=== PATIENT | male | born 1935 | race Caucasian/White ===

== ENCOUNTER 2016-02-02 16:29 | Inpatient (IN) | payer OTHER ==
[~2016-02-02] VITALS: Ht 180.3 cm; Wt 86.1 kg
[~2016-02-02 16:29] MED LIST: ASPEC81 PO; ATOR-24 PO; CARB25TA12 PO; CARV6.252 PO; DVN/160 PO; FURO-85 PO; ISOS60TA25 PO; METO100T14 PO; NTRGSL/4 UT; PANT40TA PO; POTA20TA16 PO; XRL15 PO
[2016-02-02] MEDS ORDERED: ONDANSETRON INJ 2 MG/ML 2 ML VIAL IV STA (16:41)
[2016-02-02] MEDS ORDERED: MoRPHine SULFATE 4 MG/ML 1 ML CARP\\VIAL IV STA (16:41)
[2016-02-02] MEDS ORDERED: OPTIRAY 320 IV PRN (17:00)
[2016-02-02 17:16] LABS: BASO % 0.1 %; BASO ABS # 0.01 K/uL (0-0.2); COMPLETE YES; HEMATOCRIT 43.2 % (42-52); IG% 0.3 %; LYMPH % 8.4 %; LYMPH ABS # 1.13 K/uL (1.2-3.4); MEAN CELL VOLUME 91.1 fL (80-100); MEAN CORPUSCULAR HEMOGLOBIN 32.3 pg (25-34); MEAN CORPUSCULAR HGB CONC 35.4 g/dl (32-36); MEAN PLATELET VOLUME 11.3 fL (7.4-10.4); MONO % 7.4 %; NEUT % 83.8 %; PLATELET COUNT 158 K/uL (130-400); RED BLOOD COUNT 4.74 M/uL (4.7-6.1); WHITE BLOOD COUNT 13.52 K/uL (4.8-10.8)
[2016-02-02] MEDS ORDERED: DIGO30TA PO (17:16)
--- NOTE | 2016-02-02 17:31 | DIAGNOSTIC IMAGING REPORT ---
CHEST ONE VIEW PORTABLE CLINICAL HISTORY: Chest pain. Nausea COMPARISON STUDY: Chest radiograph November 21, 2014 FINDINGS: A left subclavian pacer/AICD is in place. Cardiomediastinal silhouette is stable. There is no pneumothorax or pleural effusion. There is no evidence of pulmonary edema. No consolidation is identified. IMPRESSION: No acute cardiopulmonary findings. Electronically signed by: Mykel Zarate M.D. 02/02/2016 5:30 PM
[2016-02-02 17:42] LABS: BUN/CREATININE RATIO 13.6 (10-20); CALCIUM 9.2 mg/dl (8.5-10.1); CREATININE 1.1 mg/dl (0.60-1.40)
--- NOTE | 2016-02-02 17:56 | EMERGENCY ROOM VISIT NOTE ---
History Report prepared by Darek: Ming Prakash Under the Supervision of: Dr. Rolando Perdomo M.D. First contact with patient: 16:34 Stated Complaint: AB PAIN, NAUSEA History of Present Illness The patient is an 81 year old male who presents to the Emergency Room with complaints of persistent lower abdominal pain since last night. The pain is dull in nature. The pain is not worsened after eating. The patient also complains of chest tightness that started last night but resolved today. He also experiences exertional shortness of breath. The patient denies any fevers, vomiting, blood in the stool, or urinary symptoms. He had diarrhea yesterday after taking milk of magnesia. The patient has had chest tightness in the past. He has had two past heart attacks. He currently denies having chest discomfort. The patient also has a history of CHF. The patient follows up with Dr. Gusman as his primary care physician. He still has his appendix. Source of History: patient Onset: last night Position: abdomen (lower) Quality: dull Timing: other (persistent) Associated Symptoms: + SOB, + chest pain, + diarrhea, No fevers, No hematochezia, No urinary symptoms, No vomiting Review of Systems See HPI for pertinent positives & negatives. A total of 10 systems reviewed and were otherwise negative. Past Medical & Surgical Medical Problems: (1) Acute respiratory distress (2) Congestive heart failure Family History No pertinent family history Social History Smoking Status: Former Smoker Drug Use: none Marital Status: Housing Status: lives with family Current/Historical Medications Scheduled Aspirin Enteric Coated (Ecotrin Or Generic *), 1 TAB PO DAILY Carbidopa/Levodopa (Sinemet 25MG/100MG), 1 TAB PO QID Carvedilol (Coreg), 1 TAB PO BID Digoxin (Digitek), 0.125 MG PO DAILY Furosemide (Lasix), 40 MG PO DAILY Metoprolol Tartrate (Lopressor) (Lopressor), 100 MG PO QAM Pantoprazole (Protonix), 40 MG PO BID Potassium Ext Rel (Klor-Con), 20 MEQ PO DAILY Rivaroxaban (Xarelto), 1 TAB PO DAILY Valsartan (Diovan), 160 MG PO DAILY Scheduled PRN Nitroglycerin (Nitrostat), 0.4 MG UT PRN PRN for Chest Pain Allergies Coded Allergies: No Known Allergies (Unverified , 02/02/16) Physical Exam Vital Signs Date Time Temp Pulse Resp B/P Pulse Ox O2 Delivery O2 Flow Rate FiO2 02/02/16 17:29 90 31 110/70 93 02/02/16 17:19 110 28 92 02/02/16 17:16 128/67 02/02/16 17:14 101 22 93 02/02/16 17:09 106 30 94 02/02/16 17:04 107 21 93 02/02/16 16:59 113 30 93 02/02/16 16:54 113 21 93 02/02/16 16:49 113 24 96 02/02/16 16:46 95 Room Air 02/02/16 16:44 121 21 95 02/02/16 16:41 127 02/02/16 16:41 37.0 123 23 135/61 95 Room Air 02/02/16 16:39 166 26 94 02/02/16 16:33 135/61 02/02/16 16:29 95 Room Air 02/02/16 16:29 37.0 123 23 135/61 95 Room Air Physical Exam Constitutional: Vital signs reviewed. Eyes: Pupils are equal round reactive to light. Conjunctiva are noninjected. ENT: Pharynx is clear without erythema or exudate. Mucous membranes are moist. Neck supple without meningeal signs. Respiratory: Clear to auscultation bilaterally. Breath sounds are equal bilaterally. Cardiovascular: Tachycardic. Heart rate 110. GI: Soft, nondistended with tenderness in the right lower quadrant. No guarding. Bowel sounds are present. Musculoskeletal: No peripheral edema. No lower extremity tenderness. No CVA tenderness. Integumentary: No cyanosis. Neurological: The patient is awake and alert. No focal deficits. Psychiatric: Normal affect. Medical Decision & Procedures ER Provider Diagnostic Interpretation: X-ray results as stated below per interpretation by me and the radiologist: Other radiology results as stated below per my review and the radiologist's interpretation: CHEST ONE VIEW PORTABLE CLINICAL HISTORY: Chest pain. Nausea COMPARISON STUDY: Chest radiograph November 21, 2014 FINDINGS: A left subclavian pacer/AICD is in place. Cardiomediastinal silhouette is stable. There is no pneumothorax or pleural effusion. There is no evidence of pulmonary edema. No consolidation is identified. IMPRESSION: No acute cardiopulmonary findings. Electronically signed by: Mykel Zarate M.D. 02/02/2016 5:30 PM Laboratory Results 02/02/16 17:04 Red Blood Count 4.74, Mean Corpuscular Volume 91.1, Mean Corpuscular Hemoglobin 32.3, Mean Corpuscular Hemoglobin Concent 35.4, Mean Platelet Volume 11.3, Neutrophils (%) (Auto) 83.8, Lymphocytes (%) (Auto) 8.4, Monocytes (%) (Auto) 7.4, Eosinophils (%) (Auto) 0.0, Basophils (%) (Auto) 0.1, Neutrophils # (Auto) 11.34, Lymphocytes # (Auto) 1.13, Monocytes # (Auto) 1.00, Eosinophils # (Auto) 0.00, Basophils # (Auto) 0.01 02/02/16 17:04 Test 02/02/16 17:04 02/02/16 17:14 02/02/16 17:47 White Blood Count 13.52 K/uL (4.8-10.8) Red Blood Count 4.74 M/uL (4.7-6.1) Hemoglobin 15.3 g/dL (14.0-18.0) Hematocrit 43.2 % (42-52) Mean Corpuscular Volume 91.1 fL (80-100) Mean Corpuscular Hemoglobin 32.3 pg (25-34) Mean Corpuscular Hemoglobin Concent 35.4 g/dl (32-36) Platelet Count 158 K/uL (130-400) Mean Platelet Volume 11.3 fL (7.4-10.4) Neutrophils (%) (Auto) 83.8 % Lymphocytes (%) (Auto) 8.4 % Monocytes (%) (Auto) 7.4 % Eosinophils (%) (Auto) 0.0 % Basophils (%) (Auto) 0.1 % Neutrophils # (Auto) 11.34 K/uL (1.4-6.5) Lymphocytes # (Auto) 1.13 K/uL (1.2-3.4) Monocytes # (Auto) 1.00 K/uL (0.11-0.59) Eosinophils # (Auto) 0.00 K/uL (0-0.5) Basophils # (Auto) 0.01 K/uL (0-0.2) RDW Standard Deviation 42.2 fL (36.4-46.3) RDW Coefficient of Variation 12.5 % (11.5-14.5) Immature Granulocyte % (Auto) 0.3 % Immature Granulocyte # (Auto) 0.04 K/uL (0.00-0.02) Anion Gap 10.0 mmol/L (3-11) Est Creatinine Clear Calc Drug Dose 55.1 ml/min Estimated GFR () 72.1 Estimated GFR (Non- 62.2 BUN/Creatinine Ratio 13.6 (10-20) Calcium Level 9.2 mg/dl (8.5-10.1) Total Bilirubin 1.3 mg/dl (0.2-1) Direct Bilirubin 0.3 mg/dl (0-0.2) Aspartate Amino Transf (AST/SGOT) 30 U/L (15-37) Alanine Aminotransferase (ALT/SGPT) 9 U/L (12-78) Alkaline Phosphatase 72 U/L (45-117) Total Protein 7.7 gm/dl (6.4-8.2) Albumin 3.8 gm/dl (3.4-5.0) Lipase 49 U/L (73-393) Bedside Troponin I 0.010 ng/ml (0-0.045) Laboratory results as reviewed by me. Medications Administered Medications (Trade) Dose Ordered Sig/Remedios Route Start Time Stop Time Status Last Admin Dose Admin Morphine Sulfate (MoRPHine SULFATE INJ) 4 mg ONE STAT IV 02/02/16 16:41 02/02/16 16:43 DC 02/02/16 17:21 4 MG Ondansetron HCl (Zofran Inj) 4 mg NOW STAT IV 02/02/16 16:41 02/02/16 16:43 DC 02/02/16 17:20 4 MG ECG Indication: chest pain Rate (beats per minute): 123 Rhythm: other (paced rhythm) Findings: PVC (multiple), no acute ischemic change Comparison ECG Date: 2014 Change: Similar paced rhythm, however there were no PVCs on the previous EKG on 2104. ED Course 1635: The patient was evaluated in room B4b. A complete history and physical exam was performed. 1641: Zofran 4 mg IV, Morphine Sulfate 4 mg IV. 1740: The patient is feeling better. 1800: The patient is being signed out to Dr. Rudolph at change of shift. The CT scan is still pending. Medical Decision This is an 81-year-old male who presents with chest and abdominal pain. Differential diagnosis includes unstable angina, FL, pneumonia, appendicitis, perforation, abscess, UTI. I did perform a limited focused review of portions of the patient's old chart on the electronic medical record. The patient has had no recent pertinent visits to this hospital. I did evaluate the patient as noted above. He is presenting with chest tightness intermittently since yesterday. This is concerning for cardiac disease. He has a prior history of CAD. He also complains of right lower quadrant pain since yesterday and has tenderness in the right lower abdomen. IV access was established. I did treat patient with morphine and Zofran IV. I did order and personally review the patient's 12-lead EKG and chest x-ray as described above. I did order and review the patient's blood work as noted in the electronic medical record. His white blood cell count is elevated. Initial troponin is negative. I did order a CT of the abdomen and pelvis. The CT is currently pending. The patient was signed out to Dr. Payan. Impression Primary Impression: Acute chest pain Additional Impression: RLQ abdominal pain Scribe Attestation The scribe's documentation has been prepared under my direct and personally reviewed by me in its entirety. I confirm that the note above accurately reflects all work, treatment, procedures, and medical decision making performed by me. Departure Information Dispostion Still a Patient Referrals August Gusman M.D. (PCP)
--- NOTE | 2016-02-02 18:06 | EMERGENCY ROOM VISIT NOTE ---
ED Visit Note First contact with patient: 17:[address] Perdomo at roughly 6 PM. Patient reportedly with chest pain and abdominal pain. On examination, patient is with in no acute distress. He states he has a "pressure point "in his right lower quadrant and he has not been taking his diuretics for the last 3 days because they make him urinate. He specifically denies any chest pain whatsoever and his confirms this. I did confirm with Dr. Perdomo that in fact the patient mentioned chest pain earlier. He is generally slow to answer questions that may be a component of dementia or memory loss to his presentation. Abdomen was clearly benign on exam with minimal right lower quadrant tenderness. Chest x-ray reviewed by me did not history signs of congestive heart failure. CT the head later ordered as family reported patient not at baseline mental status. (Normal). CT abdomen and pelvis revealed diverticulitis with small abscess. Cipro Flagyl IV ordered. Case discussed with Dr. Rader for admission. Results discussed with family at 10:45 PM and all questions answered. Patient appears in no acute distress on my exam.
[2016-02-02] MEDS ORDERED: CYM/60 PO (18:21)
[2016-02-02] MEDS ORDERED: ISOS60TA25 PO (18:29)
[2016-02-02] MEDS ORDERED: FERRTAB18 PO (18:29)
[2016-02-02] MEDS ORDERED: CHOL100010 PO (18:29)
[2016-02-02] MEDS ORDERED: CYAN500T PO (18:29)
[2016-02-02] MEDS ORDERED: ATOR-24 PO (18:29)
[2016-02-02 18:56] LABS: INR 1.4 (0.9-1.1); PARTIAL THROMBOPLASTIN RATIO 1.2; PROTHROMBIN TIME (PATIENT) 14.9 SECONDS (9.0-12.0)
--- NOTE | 2016-02-02 20:14 | DIAGNOSTIC IMAGING REPORT ---
ABDOMEN AND PELVIS CT WITH IV AND ORAL CONTRAST CT DOSE: 505.10 mGy.cm HISTORY: Right lower quadrant abdominal pain. TECHNIQUE: Multiaxial CT images of the abdomen and pelvis were performed following the use of intravenous and oral contrast. COMPARISON STUDY: Abdomen and pelvis CT 08/24/2007. FINDINGS: Pacemaker wires are noted. The heart is mildly enlarged. Mild dependent changes seen at the lung bases. Small fat and fluid containing right inguinal hernia. No hepatic or splenic masses. The adrenal glands and pancreas are unremarkable. The gallbladder is mildly distended. No gallbladder wall thickening. Bilateral renal parapelvic cyst. There are few bilateral renal hypodense lesions within largest on the right measuring 9 mm. These are too small to characterize but favor cysts. No retroperitoneal lymphadenopathy. Mild bladder wall thickening with an enlarged prostate gland. This remains unchanged. Focal thickening of the mid sigmoid colon within the anterior abdomen with associated pericolonic fat stranding. This is consistent with acute diverticulitis. There is an adjacent 3.8 x 2.9 cm loculated gas and fluid collection along the posterior margin of the thickened sigmoid colon consistent with an abscess. Multiple additional colonic diverticula. Moderate stool within the colon. No evidence for bowel obstruction. Normal appendix. IMPRESSION: 1. Acute sigmoid diverticulitis with an associated 3.8 x 2.9 cm pericolonic abscess. Recommend follow-up to resolution. 2. Normal appendix. 3. Mildly distended gallbladder. No gallbladder wall thickening. 4. Mild bladder wall thickening, unchanged. 5. Fat and fluid containing right inguinal hernia. Electronically signed by: Abdi Abebe M.D. 02/02/2016 8:13 PM
[2016-02-02 21:47] LABS: URINE APPEARANCE CLEAR (CLEAR); URINE BILIRUBIN NEG (NEG); URINE COLOR YELLOW; URINE NITRITE NEG (NEG); URINE SPECIFIC GRAVITY > 1.045 (1.000-1.030); UROBILINOGEN NEG (NEG); ZZUR CULT IF INDIC CLEAN CATCH NO
[2016-02-02 21:48] LABS: MANUAL MICROSCOPIC REQUIRED? NO; REVIEW REQ? NO
--- NOTE | 2016-02-02 22:08 | DIAGNOSTIC IMAGING REPORT ---
HEAD CT NONCONTRAST CT DOSE: 712.55 mGy.cm HISTORY: Altered mental status. TECHNIQUE: Multiaxial CT images of the head were performed without the use of intravenous contrast. Automated exposure control was utilized for this study. Comparison: Head CT 12/27/2005. Findings: The paranasal sinuses and mastoid air cells are clear. The calvarium and skull base are intact. There is no mass, midline shift, or acute infarct. White matter hypodensity is nonspecific but suggestive of microvascular ischemic change. The ventricles and sulci demonstrate mild age-related involutional changes. There is residual contrast within the brain from the same day abdomen and pelvis CT. This could limit evaluation for intracranial hemorrhage. However, no definite hemorrhage identified. No enhancing masses. Impression: No definite acute intracranial abnormality with limitations as described above. Electronically signed by: Abdi Abebe M.D. 02/02/2016 10:07 PM
[2016-02-02] MEDS ORDERED: METRONIDAZOLE 500MG / 100ML NSS IV STA (22:29)
[2016-02-02] MEDS ORDERED: CIPROFLOXACIN 400MG / 200ML D5W IV STA (22:29)
[2016-02-02] MEDS ORDERED: METOPROLOL TARTRATE 1 MG/ML VIAL IV PRN (23:30)
[2016-02-02] MEDS ORDERED: ACETAMINOPHEN IV 100 ML IV PRN (23:45)
[2016-02-02] MEDS ORDERED: ONDANSETRON INJ 2 MG/ML 2 ML VIAL IV PRN (23:45)
[2016-02-02] MEDS ORDERED: MoRPHine SULFATE 4 MG/ML 1 ML CARP\\VIAL IV PRN (23:45)
[2016-02-02] MEDS ORDERED: MoRPHine SULFATE 2 MG/ML CARP IV PRN (23:45)
[2016-02-03] VITALS (11 sets, daily range): BP systolic 89–126; BP diastolic 54–72; PULSE 81–104; TEMP 36.6–37.3; O2SAT 91–94; Ht 180.3 cm; Wt 86.1 kg
[2016-02-03] MEDS ORDERED: PIPERACILL/TAZOBAC CONSULT ACTIVE PRN (01:15)
[2016-02-03] MEDS ORDERED: NITROGLYCERIN OINT 2% 1GM PACKET EXT STA (01:20)
--- NOTE | 2016-02-03 01:29 | History and Physical ---
History & Physical Date & Time of Service: Feb 03, 2016 at 01:17 Chief Complaint: Colonic Diverticular Abscess Primary Care Physician: August Gusman M.D. History of Present Illness Source: patient, family, spouse The patient is an 81-year-old male who presents emergency department with complaint of left lower quadrant abdominal pain that he reported last evening, but upon retrospect of family, likely began sometime last week. He did have some transient chest tightness and shortness of breath last night that resolved. He took milk of magnesia for constipation yesterday, and then had diarrhea the remainder the day. He has history of 2 previous heart attacks and history of CHF. Past Medical/Surgical History Medical Problems: (1) Acute respiratory distress Status: Resolved (2) Congestive heart failure Status: Chronic Family History No pertinent family history Social History Smoking Status: Former Smoker Smokeless Tobacco Use: No Alcohol Use: none Drug Use: none Marital Status: Housing status: lives with family Multi-Drug Resistant Organisms History of MDRO: No Allergies Coded Allergies: No Known Allergies (Unverified , 02/02/16) Home Medications Scheduled Aspirin Enteric Coated (Ecotrin Or Generic *), 1 TAB PO DAILY Atorvastatin (Lipitor), 40 MG PO HS Carbidopa/Levodopa (Sinemet 25MG/100MG), 1 TAB PO QID Carvedilol (Coreg), 1 TAB PO BID Cholecalciferol (Vitamin D), 2,000 INTER.UNIT PO DAILY Cyanocobalamin (Vitamin B-12), 500 MCG PO DAILY Digoxin (Digitek), 0.125 MG PO DAILY Duloxetine HCl (Cymbalta), 60 MG PO DAILY Furosemide (Lasix), 40 MG PO DAILY Iron-Vitamin C (Vitron-C), 1 TAB PO DAILY Isosorbide Mononitrate Ext Rel (Imdur Ext Rel), 60 MG PO QAM Metoprolol Tartrate (Lopressor) (Lopressor), 100 MG PO QAM Pantoprazole (Protonix), 40 MG PO BID Potassium Ext Rel (Klor-Con), 20 MEQ PO DAILY Rivaroxaban (Xarelto), 1 TAB PO DAILY Valsartan (Diovan), 160 MG PO DAILY Scheduled PRN Nitroglycerin (Nitrostat), 0.4 MG UT PRN PRN for Chest Pain Review of Systems The patient denies palpitations, cough, lower extremity swelling, vision change , hearing change, sore throat, fevers, chills, sweats, weight change, fatigue, nausea, vomiting, blood in urine or stool, dysuria, urinary frequency or urgency , lightheadedness, dizziness, headache, rash, abnormal bruising or bleeding, imbalance, focal weakness, numbness or tingling in arms or legs, arthralgias or myalgias, back or neck pain, night sweats, or allergy symptoms. The review of systems is otherwise negative other than for that already noted above, and at least 10 systems have been reviewed. Physical Exam Vital Signs Date Time Temp Pulse Resp B/P Pulse Ox O2 Delivery O2 Flow Rate FiO2 02/03/16 00:43 37.2 80 20 115/56 94 02/02/16 22:22 107 02/02/16 19:49 86 19 02/02/16 19:44 84 26 94 02/02/16 19:39 84 27 92 02/02/16 19:34 85 25 94 02/02/16 19:29 82 22 119/62 95 02/02/16 19:24 83 27 95 02/02/16 19:19 90 26 95 02/02/16 19:17 91 21 117/77 94 Room Air 02/02/16 19:14 84 24 96 02/02/16 19:09 83 27 93 02/02/16 19:05 117/77 02/02/16 19:04 94 27 02/02/16 18:54 112 23 02/02/16 18:49 114 30 02/02/16 18:44 94 28 02/02/16 18:39 84 25 02/02/16 18:34 92 29 02/02/16 18:29 156 27 02/02/16 18:24 99 21 02/02/16 18:19 85 26 02/02/16 18:14 104 30 02/02/16 18:09 110 27 02/02/16 18:04 91 26 92 02/02/16 17:59 105 27 121/60 92 02/02/16 17:54 104 30 91 02/02/16 17:49 101 26 93 02/02/16 17:44 106 28 93 02/02/16 17:39 108 26 92 02/02/16 17:34 108 22 94 02/02/16 17:29 90 31 110/70 93 02/02/16 17:19 110 28 92 02/02/16 17:16 128/67 02/02/16 17:14 101 22 93 02/02/16 17:09 106 30 94 02/02/16 17:04 107 21 93 02/02/16 16:59 113 30 93 02/02/16 16:54 113 21 93 02/02/16 16:49 113 24 96 02/02/16 16:46 95 Room Air 02/02/16 16:44 121 21 95 02/02/16 16:41 127 02/02/16 16:41 37.0 123 23 135/61 95 Room Air 02/02/16 16:39 166 26 94 02/02/16 16:33 135/61 02/02/16 16:29 95 Room Air 02/02/16 16:29 37.0 123 23 135/61 95 Room Air The patient is awake, well-developed and adequately nourished, alert and oriented 3, normocephalic and atraumatic, lying in bed and in no acute distress. HEENT--PERRL, mucous membranes dry, and oropharynx dry. Neck--supple, no JVD or bruits, thyroid normal, trachea midline, no adenopathy. Heart--normal S1 and S2, no extra beats, no murmurs, rubs or gallops. Lungs--clear bilaterally, no respiratory distress, no accessory muscle use. Abdomen--normal bowel sounds and soft, tender left lower quadrant, no hernias or masses, no organomegaly. Extremities--no cyanosis, clubbing or edema. There are good distal pulses b/l. Dermatologic--normal skin turgor, normal color, warm and dry, no abnormal lymph nodes, no rash. Neurologic--cranial nerves II through XII grossly intact. Psychiatric--normal affect. Diagnostics Laboratory Results Results Past 24 Hours Test 02/02/16 17:04 02/02/16 17:14 02/02/16 18:17 02/02/16 18:21 Range/Units White Blood Count 13.52 4.8-10.8 K/uL Red Blood Count 4.74 4.7-6.1 M/uL Hemoglobin 15.3 14.0-18.0 g/dL Hematocrit 43.2 42-52 % Mean Corpuscular Volume 91.1 80-100 fL Mean Corpuscular Hemoglobin 32.3 25-34 pg Mean Corpuscular Hemoglobin Concent 35.4 32-36 g/dl Platelet Count 158 130-400 K/uL Mean Platelet Volume 11.3 7.4-10.4 fL Neutrophils (%) (Auto) 83.8 % Lymphocytes (%) (Auto) 8.4 % Monocytes (%) (Auto) 7.4 % Eosinophils (%) (Auto) 0.0 % Basophils (%) (Auto) 0.1 % Neutrophils # (Auto) 11.34 1.4-6.5 K/uL Lymphocytes # (Auto) 1.13 1.2-3.4 K/uL Monocytes # (Auto) 1.00 0.11-0.59 K/uL Eosinophils # (Auto) 0.00 0-0.5 K/uL Basophils # (Auto) 0.01 0-0.2 K/uL RDW Standard Deviation 42.2 36.4-46.3 fL RDW Coefficient of Variation 12.5 11.5-14.5 % Immature Granulocyte % (Auto) 0.3 % Immature Granulocyte # (Auto) 0.04 0.00-0.02 K/uL Sodium Level 137 136-145 mmol/L Potassium Level 4.0 3.5-5.1 mmol/L Chloride Level 100 98-107 mmol/L Carbon Dioxide Level 27 21-32 mmol/L Anion Gap 10.0 3-11 mmol/L Blood Urea Nitrogen 15 7-18 mg/dl Creatinine 1.10 0.60-1.40 mg/dl Est Creatinine Clear Calc Drug Dose 55.1 ml/min Estimated GFR () 72.1 Estimated GFR (Non- 62.2 BUN/Creatinine Ratio 13.6 10-20 Random Glucose 107 70-99 mg/dl Calcium Level 9.2 8.5-10.1 mg/dl Total Bilirubin 1.3 0.2-1 mg/dl Direct Bilirubin 0.3 0-0.2 mg/dl Aspartate Amino Transf (AST/SGOT) 30 15-37 U/L Alanine Aminotransferase (ALT/SGPT) 9 12-78 U/L Alkaline Phosphatase 72 45-117 U/L Troponin I < 0.015 0-0.045 ng/ml Total Protein 7.7 6.4-8.2 gm/dl Albumin 3.8 3.4-5.0 gm/dl Lipase 49 73-393 U/L Bedside Troponin I 0.010 0-0.045 ng/ml Prothrombin Time 14.9 9.0-12.0 SECONDS Prothromb Time International Ratio 1.4 0.9-1.1 Activated Partial Thromboplast Time 32.4 21.0-31.0 SECONDS Partial Thromboplastin Ratio 1.2 Pro-B-Type Natriuretic Peptide 3586 0-1800 pg/ml Bedside Lactic Acid Venous 3.76 0.90-1.70 mmol/L Test 02/02/16 21:20 02/03/16 00:40 Range/Units Urine Color YELLOW Urine Appearance CLEAR CLEAR Urine pH 7.0 4.5-7.5 Urine Specific [place] > 1.045 1.000-1.030 Urine Protein NEG NEG Urine Glucose (UA) NEG NEG Urine Ketones NEG NEG Urine Occult Blood 2+ NEG Urine Nitrite NEG NEG Urine Bilirubin NEG NEG Urine Urobilinogen NEG NEG Urine Leukocyte Esterase NEG NEG Urine WBC (Auto) 1-5 0-5 /hpf Urine RBC (Auto) 10-30 0-4 /hpf Urine Hyaline Casts (Auto) 1-5 0-5 /lpf Urine Epithelial Cells (Auto) 5-10 0-5 /lpf Urine Bacteria (Auto) NEG NEG Lactic Acid Level 1.3 0.4-2.0 mmol/L Diagnostic Radiology Patient Name: LEDY SCOTT Unit Number: [id number] Dictated: 02/02/161728 Transcribed: 02/02/161728 [facility] Printed Date/Time: [~ rep prt dt]/[~ rep prt tm] [~ rep ct labl] - [~ rep ct ivnm] [facility] Radiology Department [place], [place] [id number] Dictated: 02/02/161728 Transcribed: 02/02/161728 [facility] Printed Date/Time: [~ rep prt dt]/[~ rep prt tm] [~ rep ct labl] - [~ rep ct ivnm] CHEST ONE VIEW PORTABLE CLINICAL HISTORY: Chest pain. Nausea COMPARISON STUDY: Chest radiograph November 21, 2014 FINDINGS: A left subclavian pacer/AICD is in place. Cardiomediastinal silhouette is stable. There is no pneumothorax or pleural effusion. There is no evidence of pulmonary edema. No consolidation is identified. IMPRESSION: No acute cardiopulmonary findings. Electronically signed by: Mykel Zarate M.D. 02/02/2016 5:30 PM The status of this report is Signed. Draft = Not yet reviewed or approved by Radiologist. Signed = Reviewed and approved by Radiologist. <AttendingPhy></AttendingPhy> <FamilyPhy>August Gusman M.D.</FamilyPhy > <PrimaryPhy>August Gusman M.D.</PrimaryPhy> <UnitNumber>[id number]</ UnitNumber> <VisitNumber>[id number]</VisitNumber> <PatientName>LEDY </PatientName> <DateOfBirth>1935</DateOfBirth> <Location>C.EDB</Location> <ServiceDate>02/02/16</ServiceDate> <MNE>ESINDI</MNE> <OrderingPhy>Rolando Perdomo MD</OrderingPhy> <OrderingPhyMNE>f rep ord dr delgado</OrderingPhyMNE> < DictatingPhyMNE>f rep dict dr delgado</DictatingPhyMNE> <CCListMNE>f rep ct mne</ CCListMNE> <AdmittingPhyMNE>f pt admit dr delgado</AdmittingPhyMNE> <AttendingPhyMNE >f pt attend dr delgado</AttendingPhyMNE> <ConsultingPhyMNE>f pt consult dr delgado</ConsultingPhyMNE> <FamilyPhyMNE>f pt fam dr delgado</FamilyPhyMNE> <OtherPhyMNE>f pt other dr delgado</OtherPhyMNE> < PrimaryPhyMNE>f pt prim care dr delgado</PrimaryPhyMNE> <ReferringPhyMNE>f pt referring dr delgado</ReferringPhyMNE> Patient Name: JILL SCOTTCLARY Ramirez Unit Number: [id number] Dictated: 02/02/162004 Transcribed: 02/02/[address] [facility] [place] Printed Date/Time: [~ rep prt dt]/[~ rep prt tm] [~ rep ct labl] - [~ rep ct ivnm] [facility] [place] [address] Dictated: 02/02/162004 Transcribed: 02/02/162004 [facility] Printed Date/Time: [~ rep prt dt]/[~ rep prt tm] [~ rep ct labl] - [~ rep ct ivnm] ABDOMEN AND PELVIS CT WITH IV AND ORAL CONTRAST CT DOSE: 505.10 mGy.cm HISTORY: Right lower quadrant abdominal pain. TECHNIQUE: Multiaxial CT images of the abdomen and pelvis were performed following the use of intravenous and oral contrast. COMPARISON STUDY: Abdomen and pelvis CT 08/24/2007. FINDINGS: Pacemaker wires are noted. The heart is mildly enlarged. Mild dependent changes seen at the lung bases. Small fat and fluid containing right inguinal hernia. No hepatic or splenic masses. The adrenal glands and pancreas are unremarkable. The gallbladder is mildly distended. No gallbladder wall thickening. Bilateral renal parapelvic cyst. There are few bilateral renal hypodense lesions within largest on the right measuring 9 mm. These are too small to characterize but favor cysts. No retroperitoneal lymphadenopathy. Mild bladder wall thickening with an enlarged prostate gland. This remains unchanged. Focal thickening of the mid sigmoid colon within the anterior abdomen with associated pericolonic fat stranding. This is consistent with acute diverticulitis. There is an adjacent 3.8 x 2.9 cm loculated gas and fluid collection along the posterior margin of the thickened sigmoid colon consistent with an abscess. Multiple additional colonic diverticula. Moderate stool within the colon. No evidence for bowel obstruction. Normal appendix. IMPRESSION: 1. Acute sigmoid diverticulitis with an associated 3.8 x 2.9 cm pericolonic abscess. Recommend follow-up to resolution. 2. Normal appendix. 3. Mildly distended gallbladder. No gallbladder wall thickening. 4. Mild bladder wall thickening, unchanged. 5. Fat and fluid containing right inguinal hernia. Electronically signed by: Abdi Abebe M.D. 02/02/2016 8:13 PM The status of this report is Signed. Draft = Not yet reviewed or approved by Radiologist. Signed = Reviewed and approved by Radiologist. <AttendingPhy></AttendingPhy> <FamilyPhy>August Gusman M.D.</FamilyPhy > <PrimaryPhy>August Gusman M.D.</PrimaryPhy> <UnitNumber>[id number]</ UnitNumber> <VisitNumber>[id number]</VisitNumber> <PatientName>LEDY </PatientName> <DateOfBirth>1935</DateOfBirth> <Location>C.EDB</Location> <ServiceDate>02/02/16</ServiceDate> <MNE>ESINDI</MNE> <OrderingPhy>Rolando Perdomo MD</OrderingPhy> <OrderingPhyMNE>f rep ord dr delgado</OrderingPhyMNE> < DictatingPhyMNE>f rep dict dr delgado</DictatingPhyMNE> <CCListMNE>f rep ct mne</ CCListMNE> <AdmittingPhyMNE>f pt admit dr delgado</AdmittingPhyMNE> <AttendingPhyMNE >f pt attend dr delgado</AttendingPhyMNE> <ConsultingPhyMNE>f pt consult dr delgado</ConsultingPhyMNE> <FamilyPhyMNE>f pt fam dr delgado</FamilyPhyMNE> <OtherPhyMNE>f pt other dr delgado</OtherPhyMNE> < PrimaryPhyMNE>f pt prim care dr delgado</PrimaryPhyMNE> <ReferringPhyMNE>f pt referring dr delgado</ReferringPhyMNE> Patient Name: LEDY SCOTT Ashley Unit Number: [id number] Dictated: 02/02/162202 Transcribed: 02/02/162202 [facility] Printed Date/Time: [~ rep prt dt]/[~ rep prt tm] [~ rep ct labl] - [~ rep ct ivnm] [facility] [place] [address] Dictated: 02/02/162202 Transcribed: 02/02/162202 [facility] Printed Date/Time: [~ rep prt dt]/[~ rep prt tm] [~ rep ct labl] - [~ rep ct ivnm] HISTORY: Altered mental status. TECHNIQUE: Multiaxial CT images of the head were performed without the use of intravenous contrast. Automated exposure control was utilized for this study. Comparison: Head CT 12/27/2005. Findings: The paranasal sinuses and mastoid air cells are clear. The calvarium and skull base are intact. There is no mass, midline shift, or acute infarct. White matter hypodensity is nonspecific but suggestive of microvascular ischemic change. The ventricles and sulci demonstrate mild age-related involutional changes. There is residual contrast within the brain from the same day abdomen and pelvis CT. This could limit evaluation for intracranial hemorrhage. However, no definite hemorrhage identified. No enhancing masses. Impression: No definite acute intracranial abnormality with limitations as described above. Electronically signed by: Abdi Abebe M.D. 02/02/2016 10:07 PM The status of this report is Signed. Draft = Not yet reviewed or approved by Radiologist. Signed = Reviewed and approved by Radiologist. <AttendingPhy></AttendingPhy> <FamilyPhy>August Gusman M.D.</FamilyPhy > <PrimaryPhy>August Gusman M.D.</PrimaryPhy> <UnitNumber>[id number]</ UnitNumber> <VisitNumber>[id number]</VisitNumber> <PatientName>RITTERLEDY Ramirez </PatientName> <DateOfBirth>1935</DateOfBirth> <Location>C.EDB</Location> <ServiceDate>02/02/16</ServiceDate> <MNE>ESINDI</MNE> <OrderingPhy>Yina Rudolph MD</OrderingPhy> <OrderingPhyMNE>f rep ord dr delgado</OrderingPhyMNE> < DictatingPhyMNE>f rep dict dr delgado</DictatingPhyMNE> <CCListMNE>f rep ct danny</ CCListMNE> <AdmittingPhyMNE>f pt admit dr delgado</AdmittingPhyMNE> <AttendingPhyMNE >f pt attend dr delgado</AttendingPhyMNE> <ConsultingPhyMNE>f pt consult dr delgado</ConsultingPhyMNE> <FamilyPhyMNE>f pt fam dr delgado</FamilyPhyMNE> <OtherPhyMNE>f pt other dr delgado</OtherPhyMNE> < PrimaryPhyMNE>f pt prim care dr delgado</PrimaryPhyMNE> <ReferringPhyMNE>f pt referring dr delgado</ReferringPhyMNE> EKG EKG shows sinus tachycardia at 123, with ventricular paced complexes, and left bundle-branch block. Impression Assessment and Plan Diverticular abscess--the patient will be admitted. He'll be kept nothing by mouth. Will place him on normal saline with potassium chloride 20 mEq at 100 ML 's per hour, Zosyn 3.375 mg IV every 8 hours, pantoprazole 40 mg IV twice a day , Zofran 4 mg IV every 6 hours when necessary. We'll consult general surgery to follow patient. Cardiac dysrhythmia/hypertension/CHF--will hold carvedilol 6.25 mg by mouth twice a day furosemide 40 mg by mouth daily metoprolol tartrate 100 mg by mouth every morning potassium chloride 20 mEq by mouth daily Diovan 160 mg by mouth daily digoxin 0.125 mg by mouth daily, enteric-coated aspirin 81 mg by mouth daily, and Xarelto 15 mg by mouth daily. We'll place on digoxin 0.125 mg IV daily, and Lopressor 5 mg IV every 4 hours with hold parameters. Parkinson's--continue carbidopa/levodopa 25/100 by mouth 4 times a day. GERD-- change Protonix 40 mg by mouth twice a day to IV twice a day as noted above. Level of Care Telemetry Advanced Directives Existing Advance Directive: No Existing Living Will: No Existing Power of Private Branch Exchange Operator: No Resuscitation Status FULL RESUSCITATION VTE Prophylaxis VTE Risk Assessment Done? Y/N: Yes Risk Level: Moderate Given or contraindicated: SCD's
[2016-02-03] MEDS ORDERED: PIPERACILL/TAZOBAC IV 3.375 GM in DEXTROSE 5% 100ML IV SCH (01:30)
[2016-02-03] MEDS: NSS + 20MEQ KCL 1000ML 1,000 ML IV SCH ×2 (01:41→12:26)
[2016-02-03] MEDS: ACETAMINOPHEN 325 MG TAB PO PRN (01:48)
[2016-02-03] MEDS ORDERED: PIPERACILL/TAZOBAC IV 3.375 GM in DEXTROSE 5% 100ML 100 ML IV SCH (06:00)
[2016-02-03] MEDS: NITROGLYCERIN OINT 2% 1GM PACKET EXT SCH ×3 (06:07→17:51)
[2016-02-03] MEDS: PIPERACILL/TAZOBAC IV 3.375 GM in DEXTROSE 5% 100ML IV SCH ×3 (06:07→21:00)
[2016-02-03 07:02] LABS: BASO % 0.1 %; BASO ABS # 0.01 K/uL (0-0.2); COMPLETE YES; HEMATOCRIT 43.3 % (42-52); IG% 0.2 %; LYMPH % 11.2 %; LYMPH ABS # 1.36 K/uL (1.2-3.4); MEAN CELL VOLUME 93.1 fL (80-100); MEAN CORPUSCULAR HGB CONC 34.4 g/dl (32-36); MEAN PLATELET VOLUME 11.7 fL (7.4-10.4); MONO % 7.1 %; NEUT % 81.4 %; PLATELET COUNT 155 K/uL (130-400); RED BLOOD COUNT 4.65 M/uL (4.7-6.1); WHITE BLOOD COUNT 12.12 K/uL (4.8-10.8)
[2016-02-03 07:10] LABS: INR 1.4 (0.9-1.1); PARTIAL THROMBOPLASTIN RATIO 1.3; PROTHROMBIN TIME (PATIENT) 15.1 SECONDS (9.0-12.0)
[2016-02-03 07:38] LABS: CALCIUM 8.9 mg/dl (8.5-10.1); CREATININE 1.2 mg/dl (0.60-1.40); MAGNESIUM 2.2 mg/dl (1.8-2.4); POTASSIUM 4.2 mmol/L (3.5-5.1)
[2016-02-03] MEDS: PANTOprazole INJ 40 MG in SYRINGE 0 ML IV SCH ×2 (08:55→21:00)
--- NOTE | 2016-02-03 09:07 | Clinical Documentation Query ---
MOISE Billings : CLINICAL DOCUMENTATION QUERY Patient is an 81 year old male admitted with diverticular abscess. Documentation includes CHF, not otherwise specified. Most recent echocardiogram (2013) demonstrated an LVEF of 30-35% and Class II diastolic dysfunction. Subsequent to this time, patient has had placed a biventricular implanted cardioverter-defibrillator. Home treatment regimen includes Lasix, Digoxin, Imdur, Lopressor, Coreg, and Diovan. In your clinical opinion is this patient being managed for: ( x ) Chronic combined systolic and diastolic congestive heart failure ( ) Other explanation of clinical findings (Please Explain) ( ) Unable to determine (Please Define) ( ) Need to Discuss ( ) Not Agree The medical record reflects the following clinical findings, treatment, and risk factors. Clinical Indicators: As above Treatment: Home treatment regimen includes Lasix, Digoxin, Imdur, Lopressor, Coreg, and Diovan. Risk Factors: Ischemic cardiomyopathy, history of combined systolic and diastolic CHF exacerbations. Please clarify and document your clinical opinion in the progress notes and discharge summary. Terms such as "probable", "suspected", "likely", "questionable", "possible", or "still to be ruled out" are acceptable. IF IN AGREEMENT, YOU MUST DOCUMENT ABOVE DIAGNOSTIC STATEMENT IN DAILY PROGRESS NOTES AND DISCHARGE SUMMARY. This document is not part of the patient's record. Thank You, Perico Jain, ERIC [phone]
[2016-02-03] MEDS: CARBIDOPA/LEVODOPA 25/100MG TAB PO SCH ×4 (09:35→21:00)
--- NOTE | 2016-02-03 10:30 | SURGICAL CONSULTATION ---
DATE OF CONSULTATION: 02/03/2016 REASON FOR CONSULTATION: Acute diverticulitis with contained diverticular abscess. CONSULTATION REPORT: I have been asked by Dr. Griffiths to evaluate this patient regarding diverticulitis with localized abscess. This is an 81-year-old male with Parkinson's disease who presented with some chest tightness, shortness of breath and abdominal pain. The patient had a ventricular dysrhythmia last night. He does have a pacemaker defibrillator in place and he seemed to be paced. This has improved. Presently he has no chest symptoms. However, he does have persistent abdominal pain, which he describes as a soreness. He identifies the pain by pointing to the suprapubic area. He says the soreness has an intensity of 6/10. It has been present for 2 days. Denies fever, chills, but he has had a decreased appetite since he had a big full meal at [employer] 3 days ago. Denies nausea, vomiting. He has had some diarrhea with loose bowel movements. The patient states he has not had a similar episode before. PAST MEDICAL HISTORY: Parkinson's disease, congestive heart failure, hypertension, cardiac dysrhythmia, gastroesophageal reflux disease. PAST SURGICAL HISTORY: Bilateral hernia repair with a recurrence on the right side. ALLERGIES: None known. PRESENT MEDICATION: Aspirin, Lipitor, carbidopa/levodopa, Coreg, digoxin, Cymbalta, Lasix, Imdur, Lopressor, Nitrostat, Protonix, Klor-Con, Xarelto, Diovan. SOCIAL HISTORY: Smoking 1 pack per day, quit 40 years ago. Alcohol use occasional. FAMILY HISTORY: Father and brother have heart disease. Father had a myocardial infarction. REVIEW OF SYSTEMS: GENERAL: The patient feels a little weak. No fatigue. No unintentional weight change. SKIN: No rashes or itching. ENT: No visual change or ocular pain. BREASTS: No breast lump or nipple discharge. CARDIAC: No chest pain or palpitations, but he did have some last night, which has improved. PULMONARY: No shortness of breath or productive cough. ABDOMEN: Lower abdominal pain, but no nausea or vomiting. GENITOURINARY: No frequent urination or dysuria. NEUROLOGIC: No seizures or numbness, but he does have a tremor due to his Parkinson's. SKELETAL: No back pain or joint pain. PHYSICAL EXAMINATION: VITAL SIGNS: Temperature 36.8, blood pressure 104/62, heart rate 82, respirations 18, O2 saturation 94% on room air. EARS, NOSE THROATH: Clear. Pupils equal and reactive. Nonicteric sclerae. Normal skin turgor. His oral mucous membranes are moist. Dentures in place, upper and lower complete. Midline tongue. NECK: Soft, supple, no cervical bruits or lymphadenopathy, midline trachea, normal thyroid. CHEST: Clear with good breath sounds in the upper lung marie, slightly diminished in the bases. No rales or rhonchi. HEART: Regular rate and rhythm, normal S1, S2 heart sounds. No obvious murmur. ABDOMEN: Slightly obese, slightly distended. Bowel sounds are present, but hypoactive. Nontender. No voluntary guarding or rebound, but he does have tenderness in the suprapubic area again with no voluntary guarding. Bilateral groin scars. The right inguinal hernia is difficult to palpate due to the fact that the patient is recurrent in bed. He is slightly obese in that area. GENITOURINARY: The patient has a diaper in place and this was not removed. NEUROLOGIC: Cranial nerves III-XII intact. Peripheral motor and sensory equal and symmetrical. Alert, oriented x2 person and place. He is hard of hearing both ears. Motor sensory equal and symmetrical. EXTREMITIES: Normal range of motion of all 4 extremities, soft, supple, calves. No ankle edema. 4+ bilateral radial and pedal pulses. LABORATORIES: White count 12.1, hemoglobin 14.9, platelets 155, polys 81%. Electrolytes normal. Creatinine 1.2. Coagulation, INR is 1.4. PTT 32.7. Urinalysis, some red cells 10-30, and epithelial cells 5-10 per high power field. IMAGING: CT scan of the abdomen and pelvis shows acute sigmoid diverticulitis with a 3.8 x 2.9 cm pericolic abscess. Seems to be contained. There is no free air. Mildly distended gallbladder with no gallbladder wall thickening. No obvious cholelithiasis. Mild bladder wall thickening. Fat and fluid contained right inguinal hernia. CT scan head, no definite acute intracranial abnormalities with limitations as described above. IMPRESSION: 1. Acute sigmoid diverticulitis with contained pericolic abscess. 2. Cardiac dysrhythmia improved, pacemaker and defibrillator functioning. 3. Congestive heart failure, stable. 4. Parkinson's disease. PLAN: The patient requires IV hydration. N.p.o. except medications for now. Reassess the abdomen. He will require a second CT scan of the abdomen to determine if the abscess and localized cellulitis is progressing and worsening. If this is to occur, the first option would be to consult interventional radiology to determine if the abscess can be decompressed by image guided percutaneous approach. If this is not possible here at our facility, he may need to have an IR from a higher level of care evaluate him. Otherwise, he may require a colonic resection if he developes a free perforation or rapid progression of the infection. Continue the IV Zosyn and metronidazole. MTDD
--- NOTE | 2016-02-03 10:36 | Progress Note ---
Subjective Date of Service: Feb 03, 2016. Subjective Pt evaluation today including: conversation w/ patient, physical exam, lab review, review of studies, review of inpatient medication list Pain: LLQ pain, mild, improved since admission PO Intake: NPO Voiding: no voiding problems pain is better compared to admission, NPO currently, having intermittent loose stools, no blood discussed findings of abscess with diverticulitis, plan to utilize antibiotics and repeat CT scan in a few days Problem List Medical Problems: (1) Acute chest pain Status: Acute (2) RLQ abdominal pain Status: Acute Review of Systems Abdomen: + diarrhea, + nausea, + pain, No GI bleeding, No constipation, No vomiting All Other Systems: Reviewed and Negative Medications Current Inpatient Medications Medications (Trade) Dose Ordered Sig/Remedios Route Start Time Stop Time Status Last Admin Dose Admin Ioversol (Optiray 320) 100 ml UD PRN IV 02/02/16 17:00 02/06/16 16:59 Carbidopa/ Levodopa 1 tab 1 tab QID PO 02/03/16 09:00 03/04/16 08:59 02/03/16 09:35 1 TAB Digoxin/Syringe (Digoxin IV/ Syringe) 10 ml @ 2 mls/min DAILY@16 IV 02/03/16 16:00 03/04/16 15:59 Nitroglycerin (Nitroglycerin 2% Oint) 1 inch Q6H EXT 02/03/16 06:00 03/04/16 05:59 02/03/16 06:07 1 INCH Metoprolol Tartrate 5 mg 5 mg Q4 PRN IV 02/02/16 23:30 03/03/16 23:29 Pantoprazole Sodium 40 mg/ Syringe 10 ml @ 5 mls/min DAILY@09,21 IV 02/03/16 09:00 03/04/16 08:59 02/03/16 08:55 5 MLS/MIN Potassium Chloride/Sodium Chloride (Nss + 20meq KCl 1000ml) 1,000 ml @ 100 mls/hr Q10H IV 02/03/16 01:15 03/04/16 01:14 02/03/16 01:41 100 MLS/HR Acetaminophen (Tylenol Tab) 650 mg Q4H PRN PO 02/02/16 23:30 03/03/16 23:29 02/03/16 01:48 650 MG Ondansetron HCl 4 mg 4 mg Q6H PRN IV 02/02/16 23:45 03/03/16 23:44 Acetaminophen (Ofirmev Iv) 100 ml @ 400 mls/hr Q8H PRN IV 02/02/16 23:45 03/03/16 23:44 Morphine Sulfate (MoRPHine SULFATE INJ) 2 mg Q2H PRN IV 02/02/16 23:45 02/16/16 23:44 Morphine Sulfate 4 mg 4 mg Q2H PRN IV 02/02/16 23:45 02/16/16 23:44 Piperacillin Sod/ Tazobactam Sod/ Dextrose (Zosyn Iv/D5 100ml) 115 ml @ 28.75 mls/ hr Q8H IV 02/03/16 06:00 02/13/16 05:59 02/03/16 06:07 28.75 MLS/HR Piperacillin Sod/ Tazobactam Sod (Consult) 1 ea UD PRN N/A 02/03/16 01:15 03/04/16 01:14 Objective Vital Signs Date Time Temp Pulse Resp B/P Pulse Ox O2 Delivery O2 Flow Rate FiO2 02/03/16 06:58 36.8 82 18 104/62 94 Room Air 02/03/16 06:04 88 105/66 02/03/16 04:00 Room Air 02/03/16 04:00 36.6 83 18 105/63 92 02/03/16 01:47 81 116/72 02/03/16 01:30 37.0 81 20 116/72 Room Air 02/03/16 01:00 37.0 81 20 116/72 92 Room Air 02/03/16 00:43 37.2 80 20 115/56 94 02/02/16 22:22 107 02/02/16 19:49 86 19 02/02/16 19:44 84 26 94 02/02/16 19:39 84 27 92 02/02/16 19:34 85 25 94 02/02/16 19:29 82 22 119/62 95 02/02/16 19:24 83 27 95 02/02/16 19:19 90 26 95 02/02/16 19:17 91 21 117/77 94 Room Air 02/02/16 19:14 84 24 96 02/02/16 19:09 83 27 93 02/02/16 19:05 117/77 02/02/16 19:04 94 27 02/02/16 18:54 112 23 02/02/16 18:49 114 30 02/02/16 18:44 94 28 02/02/16 18:39 84 25 02/02/16 18:34 92 29 02/02/16 18:29 156 27 02/02/16 18:24 99 21 02/02/16 18:19 85 26 02/02/16 18:14 104 30 02/02/16 18:09 110 27 02/02/16 18:04 91 26 92 02/02/16 17:59 105 27 121/60 92 02/02/16 17:54 104 30 91 02/02/16 17:49 101 26 93 02/02/16 17:44 106 28 93 02/02/16 17:39 108 26 92 02/02/16 17:34 108 22 94 02/02/16 17:29 90 31 110/70 93 02/02/16 17:19 110 28 92 02/02/16 17:16 128/67 02/02/16 17:14 101 22 93 02/02/16 17:09 106 30 94 02/02/16 17:04 107 21 93 02/02/16 16:59 113 30 93 02/02/16 16:54 113 21 93 02/02/16 16:49 113 24 96 02/02/16 16:46 95 Room Air 02/02/16 16:44 121 21 95 02/02/16 16:41 127 02/02/16 16:41 37.0 123 23 135/61 95 Room Air 02/02/16 16:39 166 26 94 02/02/16 16:33 135/61 02/02/16 16:29 95 Room Air 02/02/16 16:29 37.0 123 23 135/61 95 Room Air Physical Exam General Appearance: WD/WN, no apparent distress Eyes: normal inspection, EOMI, sclerae normal Neck: supple, no adenopathy, no JVD, trachea midline Respiratory/Chest: chest non-tender, lungs clear, normal breath sounds, no respiratory distress, no accessory muscle use Cardiovascular: regular rate, rhythm, no edema, no gallop, no JVD, no murmur Abdomen: normal bowel sounds, soft, no organomegaly, + tenderness (LLQ, no rebound, no rigidity) Extremities: normal range of motion, non-tender, normal inspection, no pedal edema, no calf tenderness Neurologic/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: 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, no motor/sensory deficits, alert, normal mood/affect, oriented x 3 Skin: normal color, warm/dry, no rash Lymphatic: no adenopathy Laboratory Results Last 24 Hours Test 02/02/16 17:04 02/02/16 17:14 02/02/16 18:17 02/02/16 18:21 White Blood Count 13.52 K/uL Red Blood Count 4.74 M/uL Hemoglobin 15.3 g/dL Hematocrit 43.2 % Mean Corpuscular Volume 91.1 fL Mean Corpuscular Hemoglobin 32.3 pg Mean Corpuscular Hemoglobin Concent 35.4 g/dl Platelet Count 158 K/uL Mean Platelet Volume 11.3 fL Neutrophils (%) (Auto) 83.8 % Lymphocytes (%) (Auto) 8.4 % Monocytes (%) (Auto) 7.4 % Eosinophils (%) (Auto) 0.0 % Basophils (%) (Auto) 0.1 % Neutrophils # (Auto) 11.34 K/uL Lymphocytes # (Auto) 1.13 K/uL Monocytes # (Auto) 1.00 K/uL Eosinophils # (Auto) 0.00 K/uL Basophils # (Auto) 0.01 K/uL RDW Standard Deviation 42.2 fL RDW Coefficient of Variation 12.5 % Immature Granulocyte % (Auto) 0.3 % Immature Granulocyte # (Auto) 0.04 K/uL Sodium Level 137 mmol/L Potassium Level 4.0 mmol/L Chloride Level 100 mmol/L Carbon Dioxide Level 27 mmol/L Anion Gap 10.0 mmol/L Blood Urea Nitrogen 15 mg/dl Creatinine 1.10 mg/dl Est Creatinine Clear Calc Drug Dose 55.1 ml/min Estimated GFR () 72.1 Estimated GFR (Non- 62.2 BUN/Creatinine Ratio 13.6 Random Glucose 107 mg/dl Calcium Level 9.2 mg/dl Total Bilirubin 1.3 mg/dl Direct Bilirubin 0.3 mg/dl Aspartate Amino Transf (AST/SGOT) 30 U/L Alanine Aminotransferase (ALT/SGPT) 9 U/L Alkaline Phosphatase 72 U/L Troponin I < 0.015 ng/ml Total Protein 7.7 gm/dl Albumin 3.8 gm/dl Lipase 49 U/L Bedside Troponin I 0.010 ng/ml Prothrombin Time 14.9 SECONDS Prothromb Time International Ratio 1.4 Activated Partial Thromboplast Time 32.4 SECONDS Partial Thromboplastin Ratio 1.2 Pro-B-Type Natriuretic Peptide 3586 pg/ml Bedside Lactic Acid Venous 3.76 mmol/L Test 02/02/16 21:20 02/03/16 00:40 02/03/16 06:16 Urine Color YELLOW Urine Appearance CLEAR Urine pH 7.0 Urine Specific [place] > 1.045 Urine Protein NEG Urine Glucose (UA) NEG Urine Ketones NEG Urine Occult Blood 2+ Urine Nitrite NEG Urine Bilirubin NEG Urine Urobilinogen NEG Urine Leukocyte Esterase NEG Urine WBC (Auto) 1-5 /hpf Urine RBC (Auto) 10-30 /hpf Urine Hyaline Casts (Auto) 1-5 /lpf Urine Epithelial Cells (Auto) 5-10 /lpf Urine Bacteria (Auto) NEG Lactic Acid Level 1.3 mmol/L White Blood Count 12.12 K/uL Red Blood Count 4.65 M/uL Hemoglobin 14.9 g/dL Hematocrit 43.3 % Mean Corpuscular Volume 93.1 fL Mean Corpuscular Hemoglobin 32.0 pg Mean Corpuscular Hemoglobin Concent 34.4 g/dl Platelet Count 155 K/uL Mean Platelet Volume 11.7 fL Neutrophils (%) (Auto) 81.4 % Lymphocytes (%) (Auto) 11.2 % Monocytes (%) (Auto) 7.1 % Eosinophils (%) (Auto) 0.0 % Basophils (%) (Auto) 0.1 % Neutrophils # (Auto) 9.87 K/uL Lymphocytes # (Auto) 1.36 K/uL Monocytes # (Auto) 0.86 K/uL Eosinophils # (Auto) 0.00 K/uL Basophils # (Auto) 0.01 K/uL RDW Standard Deviation 43.9 fL RDW Coefficient of Variation 13.0 % Immature Granulocyte % (Auto) 0.2 % Immature Granulocyte # (Auto) 0.02 K/uL Prothrombin Time 15.1 SECONDS Prothromb Time International Ratio 1.4 Activated Partial Thromboplast Time 32.7 SECONDS Partial Thromboplastin Ratio 1.3 Sodium Level 136 mmol/L Potassium Level 4.2 mmol/L Chloride Level 98 mmol/L Carbon Dioxide Level 32 mmol/L Anion Gap 6.0 mmol/L Blood Urea Nitrogen 17 mg/dl Creatinine 1.20 mg/dl Est Creatinine Clear Calc Drug Dose 52.3 ml/min Estimated GFR () 64.9 Estimated GFR (Non- 56.0 BUN/Creatinine Ratio 14.0 Random Glucose 103 mg/dl Calcium Level 8.9 mg/dl Magnesium Level 2.2 mg/dl Assessment and Plan 81 yo male with history of combined systolic and diastolic HF, presented with lower abdominal pain, diagnosed with acute diverticulitis with sigmoid abscess - Acute sigmoid diverticulitis with abscess: Zosyn IV, NPO, IV fluids, Protonix , Zofran PRN consult general surgery pain improved today, WBC still elevated but down slightly, plan to repeat CT scan in a few days to see if abscess resolving - Chronic systolic and diastolic HF: euvolemic currently, holding Lasix in setting of infection, cautious use of fluids, will assess volume status tomorrow AM utilize Lopressor IV for now until he can take PO, digoxin changed to IV - Paroxysmal atrial fibrillation: holding Xarelto in case he would need surgery , Lopressor IV, rates controlled Parkinson's--continue carbidopa/levodopa 25/100 by mouth 4 times a day. GERD-- change Protonix 40 mg by mouth twice a day to IV twice a day as noted above. DVT prophylaxis: just stopped Xarelto, will start Heparin tomorrow
[2016-02-03] MEDS ORDERED: DIGOXIN IV 125 MCG in SYRINGE 9.5 ML IV SCH (16:00)
[2016-02-04] VITALS (7 sets, daily range): BP systolic 132–153; BP diastolic 74–82; PULSE 78–99; TEMP 36.7–37; O2SAT 91–96
[2016-02-04] MEDS: NITROGLYCERIN OINT 2% 1GM PACKET EXT SCH ×4 (00:32→16:52)
[2016-02-04] MEDS: NSS + 20MEQ KCL 1000ML 1,000 ML IV SCH ×2 (00:56→14:43)
[2016-02-04] MEDS: PIPERACILL/TAZOBAC IV 3.375 GM in DEXTROSE 5% 100ML IV SCH ×3 (05:39→21:44)
[2016-02-04] MEDS ORDERED: HEPARIN SOD 5000 UNIT/0.5 ML CARP SQ SCH (06:00)
[2016-02-04 06:27] LABS: BASO % 0.1 %; BASO ABS # 0.01 K/uL (0-0.2); COMPLETE YES; HEMATOCRIT 38.4 % (42-52); IG% 0.3 %; LYMPH % 9.9 %; LYMPH ABS # 0.91 K/uL (1.2-3.4); MEAN CELL VOLUME 91.2 fL (80-100); MEAN CORPUSCULAR HEMOGLOBIN 32.1 pg (25-34); MEAN CORPUSCULAR HGB CONC 35.2 g/dl (32-36); MEAN PLATELET VOLUME 10.8 fL (7.4-10.4); MONO % 9.2 %; NEUT % 80.5 %; PLATELET COUNT 122 K/uL (130-400); RED BLOOD COUNT 4.21 M/uL (4.7-6.1); WHITE BLOOD COUNT 9.19 K/uL (4.8-10.8)
[2016-02-04 06:59] LABS: BUN/CREATININE RATIO 16.8 (10-20); CALCIUM 8.7 mg/dl (8.5-10.1); INR 1.2 (0.9-1.1); MAGNESIUM 2.1 mg/dl (1.8-2.4); PARTIAL THROMBOPLASTIN RATIO 1.2; POTASSIUM 3.9 mmol/L (3.5-5.1); PROTHROMBIN TIME (PATIENT) 13.3 SECONDS (9.0-12.0)
[2016-02-04] MEDS: CARBIDOPA/LEVODOPA 25/100MG TAB PO SCH ×4 (08:31→20:00)
[2016-02-04] MEDS: PANTOprazole INJ 40 MG in SYRINGE 0 ML IV SCH ×2 (08:35→21:44)
--- NOTE | 2016-02-04 10:51 | Hospitalist Progress Note ---
Hospitalist Progress Note Date of Service Feb 04, 2016. Subjective Pt evaluation today including: conversation w/ patient, physical exam, chart review, lab review, review of studies, review of inpatient medication list Pain: None PO Intake: NPO Voiding: no voiding problems Pt was seen and examined this morning. Pt with c/o not being allowed to eat and that being here in the hospital has "been a waste of the last 4 days." He denies abdominal pain, nausea, vomiting, constipation or diarrhea. He has not had a bowel movement since being admitted but attributes to NPO status. He c/o left frontal headache which radiates to the back of his head. Constitutional: No chills, No fever, No sweats ENT: No hearing loss, No sore throat, No tinnitus Respiratory: No cough, No shortness of breath, No sputum Cardiovascular: No chest pain, No palpitations Abdomen: No constipation, No diarrhea, No nausea, No pain, No vomiting Musculoskeletal: No joint pain Male : No dysuria Neurologic: No numbness/tingling Objective Vital Signs Date Time Temp Pulse Resp B/P Pulse Ox O2 Delivery O2 Flow Rate FiO2 02/04/16 06:58 37.0 95 20 153/79 91 Room Air 02/04/16 04:00 Room Air 02/04/16 03:05 37.0 99 16 151/77 93 Room Air 02/04/16 00:00 Room Air 02/03/16 23:27 37.3 104 20 126/64 92 Room Air 02/03/16 20:00 Room Air 02/03/16 19:58 36.9 91 20 123/69 94 Room Air 02/03/16 16:57 88 02/03/16 16:00 Room Air 02/03/16 15:11 36.7 100 16 104/56 92 Room Air 02/03/16 12:55 92 94/58 92 Room Air 02/03/16 12:06 36.8 81 16 89/54 91 Room Air 02/03/16 12:00 Room Air Physical Exam General Appearance: WD/WN, no apparent distress Eyes: EOMI ENT: hearing grossly normal, pharynx normal Neck: no JVD Respiratory/Chest: chest non-tender, lungs clear, normal breath sounds, no respiratory distress, no accessory muscle use Cardiovascular: regular rate, rhythm, no murmur Abdomen: normal bowel sounds, non tender, soft Extremities: non-tender, normal inspection, no pedal edema, no calf tenderness Neurologic/Psychiatric: no motor/sensory deficits, alert, oriented x 3 Skin: normal color, warm/dry Laboratory Results Last 24 Hours Test 02/04/16 06:19 White Blood Count 9.19 K/uL Red Blood Count 4.21 M/uL Hemoglobin 13.5 g/dL Hematocrit 38.4 % Mean Corpuscular Volume 91.2 fL Mean Corpuscular Hemoglobin 32.1 pg Mean Corpuscular Hemoglobin Concent 35.2 g/dl Platelet Count 122 K/uL Mean Platelet Volume 10.8 fL Neutrophils (%) (Auto) 80.5 % Lymphocytes (%) (Auto) 9.9 % Monocytes (%) (Auto) 9.2 % Eosinophils (%) (Auto) 0.0 % Basophils (%) (Auto) 0.1 % Neutrophils # (Auto) 7.39 K/uL Lymphocytes # (Auto) 0.91 K/uL Monocytes # (Auto) 0.85 K/uL Eosinophils # (Auto) 0.00 K/uL Basophils # (Auto) 0.01 K/uL RDW Standard Deviation 43.0 fL RDW Coefficient of Variation 12.9 % Immature Granulocyte % (Auto) 0.3 % Immature Granulocyte # (Auto) 0.03 K/uL Prothrombin Time 13.3 SECONDS Prothromb Time International Ratio 1.2 Activated Partial Thromboplast Time 31.4 SECONDS Partial Thromboplastin Ratio 1.2 Sodium Level 138 mmol/L Potassium Level 3.9 mmol/L Chloride Level 103 mmol/L Carbon Dioxide Level 26 mmol/L Anion Gap 9.0 mmol/L Blood Urea Nitrogen 17 mg/dl Creatinine 1.00 mg/dl Est Creatinine Clear Calc Drug Dose 60.7 ml/min Estimated GFR () 80.9 Estimated GFR (Non- 69.8 BUN/Creatinine Ratio 16.8 Random Glucose 108 mg/dl Calcium Level 8.7 mg/dl Magnesium Level 2.1 mg/dl Assessment and Plan 81 yo male with history of combined systolic and diastolic HF, presented with lower abdominal pain, diagnosed with acute diverticulitis with sigmoid abscess Acute sigmoid diverticulitis with abscess: Zosyn IV, NPO, IV fluids, Protonix, Zofran PRN - Gen surg consulted. - Will repeat CT of the abdomen likely tomorrow unless sx worsen more acutely. Likely needs IR to do percutaneous intervention to decompress the abscess, if this is not possible here, pt may need to be transferred to higher level of care for decompression. Pt may need a colonic resection if he develops intraperitoneal free air or rapid progression of the infection. - pain improved today, WBC still elevated but down slightly Chronic systolic and diastolic HF: -euvolemic currently, holding Lasix in setting of infection, cautious use of fluids - utilize Lopressor IV for now until he can take PO, digoxin changed to IV Paroxysmal atrial fibrillation: - holding Xarelto in case he would need surgery, Lopressor IV, rates controlled Parkinson's -continue carbidopa/levodopa 25/100 by mouth 4 times a day. GERD - cont Protonix 40 mg IV twice a day DVT ppx: cont Heparin tomorrow in light of holding xarelto for possible surgery
--- NOTE | 2016-02-04 10:52 | SURGERY PROGRESS NOTE ---
DATE: 02/04/2016 DATE: 02/04/2016. PROVIDER: Dr. Jackson, general surgery. SUBJECTIVE: I have evaluated the patient at the bedside in the presence of his . He is resting comfortably in bed. He has been out of bed to the bathroom today. He did have a large bowel movement last night. He states that he has mild to minimal abdominal pain this morning. No nausea, vomiting. Denies fever or chills. He does have an appetite. PHYSICAL EXAMINATION: VITAL SIGNS: Temperature 37.0, blood pressure 153/79, heart rate 95, respirations 20. O2 saturation 91% on room air. CHEST: Clear with diminished breath sounds in the left base. No E to A egophony. Normal tactile fremitus. HEART: Regular rate and rhythm. No murmur. ABDOMEN: Obese, soft with some mild tenderness in the suprapubic area to deep palpation only. No guarding, no rebound, no scars, no hernias. No palpable masses. EXTREMITIES: Normal. Soft, supple calves. No ankle edema. LABORATORY DATA: White count 9.1, hemoglobin 13.5, platelets 122, polys 80%. Electrolytes normal. Glucose 108, slightly elevated. IMPRESSION: 1. Acute sigmoid diverticulitis with contained pericolic abscess. 2. Cardiac dysrhythmia improved. 3. Congestive heart failure, stable. 4. Parkinson's disease. PLAN: Will start the patient on clear liquid diet this morning. He may ambulate with assistance. Repeat CT scan of abdomen and pelvis in the morning. I have discussed his case with Dr. Gaytan and See Vázquez PA-C. They will cover the service starting at 7:00 a.m. 02/05/2016.
[2016-02-04] MEDS: HEPARIN 25,000 UNIT/500ML D5W 500 ML IV PRN ×2 (15:27→22:33)
[2016-02-04] MEDS: DIGOXIN 0.125 MG TAB PO SCH (16:29)
[2016-02-04] MEDS: ACETAMINOPHEN 325 MG TAB PO PRN (16:51)
[2016-02-04 22:03] LABS: PARTIAL THROMBOPLASTIN RATIO 2.1
[2016-02-05] VITALS: BP 125/58; PULSE 84; TEMP 36.5; O2SAT 93
[2016-02-05] MEDS: NITROGLYCERIN OINT 2% 1GM PACKET EXT SCH ×4 (00:16→17:52)
[2016-02-05 06:08] LABS: COMPLETE YES; EOS % 1.6 %; IG% 0.3 %; LYMPH % 17.1 %; LYMPH ABS # 1.07 K/uL (1.2-3.4); MEAN CELL VOLUME 91.1 fL (80-100); MEAN CORPUSCULAR HGB CONC 35.1 g/dl (32-36); MEAN PLATELET VOLUME 11.5 fL (7.4-10.4); MONO % 9.4 %; NEUT % 71.6 %; PLATELET COUNT 127 K/uL (130-400); RED BLOOD COUNT 4.28 M/uL (4.7-6.1); WHITE BLOOD COUNT 6.25 K/uL (4.8-10.8)
[2016-02-05] MEDS: NSS + 20MEQ KCL 1000ML 1,000 ML IV SCH ×2 (06:16→17:50)
[2016-02-05] MEDS: PIPERACILL/TAZOBAC IV 3.375 GM in DEXTROSE 5% 100ML IV SCH ×3 (06:16→22:14)
[2016-02-05 06:26] LABS: INR 1.2 (0.9-1.1); PARTIAL THROMBOPLASTIN RATIO 2.3; PROTHROMBIN TIME (PATIENT) 12.4 SECONDS (9.0-12.0)
[2016-02-05 06:39] LABS: BUN/CREATININE RATIO 13.7 (10-20); CALCIUM 8.7 mg/dl (8.5-10.1); CREATININE 0.86 mg/dl (0.60-1.40); MAGNESIUM 2.2 mg/dl (1.8-2.4); POTASSIUM 3.7 mmol/L (3.5-5.1)
[2016-02-05] MEDS: CARBIDOPA/LEVODOPA 25/100MG TAB PO SCH ×4 (07:27→20:05)
[2016-02-05 07:28] VITALS: BP 163/78; PULSE 94; TEMP 36.6; O2SAT 96
[2016-02-05] MEDS: ACETAMINOPHEN 325 MG TAB PO PRN (07:34)
[2016-02-05] MEDS: PANTOprazole INJ 40 MG in SYRINGE 0 ML IV SCH (08:47)
[2016-02-05] MEDS: HEPARIN 25,000 UNIT/500ML D5W 500 ML IV PRN (09:00)
--- NOTE | 2016-02-05 09:31 | DIAGNOSTIC IMAGING REPORT ---
CT ABD/PELVIS IV CONTRAST ONLY CLINICAL HISTORY: contained perforated sigmoid diverticulitis COMPARISON STUDY: 02/02/2016 TECHNIQUE: Following the IV administration of 93 mL of Optiray-320, CT scan of the abdomen and pelvis was performed from the lung bases to the proximal femurs. Images are reviewed in the axial, sagittal, and coronal planes. IV contrast was administered without complication. CT DOSE: 469.77 mGy.cm FINDINGS: Lower chest: There are minor basilar atelectatic changes. There is evidence for underlying pulmonary emphysema. Liver: There is mild hepatic steatosis. No focal masses are visualized. Gallbladder: The gallbladder is distended. No calculi are visualized. Spleen: Normal in size and attenuation. Pancreas: Unremarkable. Adrenal glands: Unremarkable. Kidneys: There are bilateral parapelvic and cortical cysts ranging in size from 7 mm to 14 mm. Bowel: There are no transition zone to indicate bowel obstruction. The appendix appears normal. There are multiple colonic diverticula present. There is sigmoid wall thickening. There is a 4 cm air-fluid collection abutting the sigmoid colon consistent with a peridiverticular abscess. There is slight decreased inflammatory stranding surrounding the abscess and sigmoid colon. Peritoneum: There is no intraperitoneal free air or abdominal ascites. There is a right inguinal hernia containing fat and fluid. Vasculature: The abdominal aorta is normal in course and caliber. Adenopathy: None. Pelvic viscera: The prostate is enlarged. Skeletal structures: No destructive osseous lesions are seen. IMPRESSION: 1. Sigmoid diverticulitis with a stable 4 cm peridiverticular abscess. There is slightly diminished peridiverticular fat stranding when compared the preceding study 2. Normal appendix 3. Fat and fluid containing right internal hernia 4. No evidence of bowel obstruction. No evidence of free air 5. Progressive gallbladder distention. No wall thickening identified. Electronically signed by: Noel Funes M.D. 02/05/2016 9:30 AM
--- NOTE | 2016-02-05 10:58 | Surgery Progress Note ---
Surgery Progress Note Date of Service Feb 05, 2016. Subjective + bowel movement (loose), + diet (clears), + feeling well, + flatus, No nausea Objective Vital Signs: Date Time Temp Pulse Resp B/P Pulse Ox O2 Delivery O2 Flow Rate FiO2 02/05/16 07:28 36.6 94 18 163/78 96 Room Air 02/05/16 00:00 36.5 84 20 125/58 93 Room Air 02/05/16 00:00 93 Room Air 02/04/16 16:30 96 Room Air 02/04/16 16:29 80 02/04/16 15:48 36.9 80 18 132/74 96 Room Air 02/04/16 12:00 93 Room Air 02/04/16 11:35 36.7 78 20 148/82 95 Abdomen: non distended, soft, + tenderness (minimal) Laboratory Results: Results Past 24 Hours Test 02/04/16 21:36 02/05/16 05:47 Range/Units Activated Partial Thromboplast Time 55.8 59.4 21.0-31.0 SECONDS Partial Thromboplastin Ratio 2.1 2.3 White Blood Count 6.25 4.8-10.8 K/uL Red Blood Count 4.28 4.7-6.1 M/uL Hemoglobin 13.7 14.0-18.0 g/dL Hematocrit 39.0 42-52 % Mean Corpuscular Volume 91.1 80-100 fL Mean Corpuscular Hemoglobin 32.0 25-34 pg Mean Corpuscular Hemoglobin Concent 35.1 32-36 g/dl Platelet Count 127 130-400 K/uL Mean Platelet Volume 11.5 7.4-10.4 fL Neutrophils (%) (Auto) 71.6 % Lymphocytes (%) (Auto) 17.1 % Monocytes (%) (Auto) 9.4 % Eosinophils (%) (Auto) 1.6 % Basophils (%) (Auto) 0.0 % Neutrophils # (Auto) 4.47 1.4-6.5 K/uL Lymphocytes # (Auto) 1.07 1.2-3.4 K/uL Monocytes # (Auto) 0.59 0.11-0.59 K/uL Eosinophils # (Auto) 0.10 0-0.5 K/uL Basophils # (Auto) 0.00 0-0.2 K/uL RDW Standard Deviation 42.5 36.4-46.3 fL RDW Coefficient of Variation 12.7 11.5-14.5 % Immature Granulocyte % (Auto) 0.3 % Immature Granulocyte # (Auto) 0.02 0.00-0.02 K/uL Prothrombin Time 12.4 9.0-12.0 SECONDS Prothromb Time International Ratio 1.2 0.9-1.1 Sodium Level 141 136-145 mmol/L Potassium Level 3.7 3.5-5.1 mmol/L Chloride Level 105 98-107 mmol/L Carbon Dioxide Level 28 21-32 mmol/L Anion Gap 8.0 3-11 mmol/L Blood Urea Nitrogen 12 7-18 mg/dl Creatinine 0.86 0.60-1.40 mg/dl Est Creatinine Clear Calc Drug Dose 70.5 ml/min Estimated GFR () 93.6 Estimated GFR (Non- 80.8 BUN/Creatinine Ratio 13.7 10-20 Random Glucose 100 70-99 mg/dl Calcium Level 8.7 8.5-10.1 mg/dl Magnesium Level 2.2 1.8-2.4 mg/dl Assessment & Plan diverticulitis with abscess CT stable collection, less fat stranding WBC normal, afebrile start full liquids cont IV abx several more days and extended po at d/c
--- NOTE | 2016-02-05 12:05 | Hospitalist Progress Note ---
Hospitalist Progress Note Date of Service Feb 05, 2016. Subjective Pt evaluation today including: conversation w/ patient, physical exam, chart review, lab review, review of studies, review of inpatient medication list Pain: None PO Intake: Good Voiding: no voiding problems Pt was seen and examined this morning. is at bedside with him. He denies any acute complaints including no abdominal pain, fever, chills, sweats. Pt did have one large loose bowel movement this morning as reported by nursing staff. Constitutional: No chills, No fever, No sweats ENT: No nasal symptoms, No sore throat, No unusual epistaxis Respiratory: No cough, No shortness of breath, No wheezing Cardiovascular: No chest pain, No palpitations Abdomen: No constipation, No diarrhea, No nausea, No pain, No vomiting Neurologic: No weakness Objective Vital Signs Date Time Temp Pulse Resp B/P Pulse Ox O2 Delivery O2 Flow Rate FiO2 02/05/16 07:28 36.6 94 18 163/78 96 Room Air 02/05/16 00:00 36.5 84 20 125/58 93 Room Air 02/05/16 00:00 93 Room Air 02/04/16 16:30 96 Room Air 02/04/16 16:29 80 02/04/16 15:48 36.9 80 18 132/74 96 Room Air 02/04/16 12:00 93 Room Air Physical Exam General Appearance: WD/WN, no apparent distress Eyes: PERRL, EOMI ENT: hearing grossly normal, pharynx normal Neck: no JVD Respiratory/Chest: lungs clear, normal breath sounds, no respiratory distress, no accessory muscle use Cardiovascular: regular rate, rhythm, no JVD Abdomen: normal bowel sounds, non tender, soft, no organomegaly Extremities: non-tender, no pedal edema, no calf tenderness Neurologic/Psychiatric: no motor/sensory deficits, normal mood/affect, oriented x 3, + pertinent finding (MME completed; scored 23/30, exam scanned into chart) Skin: normal color, warm/dry Laboratory Results Last 24 Hours Test 02/04/16 21:36 02/05/16 05:47 Activated Partial Thromboplast Time 55.8 SECONDS 59.4 SECONDS Partial Thromboplastin Ratio 2.1 2.3 White Blood Count 6.25 K/uL Red Blood Count 4.28 M/uL Hemoglobin 13.7 g/dL Hematocrit 39.0 % Mean Corpuscular Volume 91.1 fL Mean Corpuscular Hemoglobin 32.0 pg Mean Corpuscular Hemoglobin Concent 35.1 g/dl Platelet Count 127 K/uL Mean Platelet Volume 11.5 fL Neutrophils (%) (Auto) 71.6 % Lymphocytes (%) (Auto) 17.1 % Monocytes (%) (Auto) 9.4 % Eosinophils (%) (Auto) 1.6 % Basophils (%) (Auto) 0.0 % Neutrophils # (Auto) 4.47 K/uL Lymphocytes # (Auto) 1.07 K/uL Monocytes # (Auto) 0.59 K/uL Eosinophils # (Auto) 0.10 K/uL Basophils # (Auto) 0.00 K/uL RDW Standard Deviation 42.5 fL RDW Coefficient of Variation 12.7 % Immature Granulocyte % (Auto) 0.3 % Immature Granulocyte # (Auto) 0.02 K/uL Prothrombin Time 12.4 SECONDS Prothromb Time International Ratio 1.2 Sodium Level 141 mmol/L Potassium Level 3.7 mmol/L Chloride Level 105 mmol/L Carbon Dioxide Level 28 mmol/L Anion Gap 8.0 mmol/L Blood Urea Nitrogen 12 mg/dl Creatinine 0.86 mg/dl Est Creatinine Clear Calc Drug Dose 70.5 ml/min Estimated GFR () 93.6 Estimated GFR (Non- 80.8 BUN/Creatinine Ratio 13.7 Random Glucose 100 mg/dl Calcium Level 8.7 mg/dl Magnesium Level 2.2 mg/dl Assessment and Plan (1) Colonic diverticular abscess 81 yo male with history of combined systolic and diastolic HF, presented with lower abdominal pain, diagnosed with acute diverticulitis with sigmoid abscess Acute sigmoid diverticulitis with abscess: - Zosyn IV, IV fluids, Protonix, Zofran PRN - Gen surg on board- appreciate recs - Repeat CT of the abdomen today shows no progression of the abscess. IMPRESSION: 1. Sigmoid diverticulitis with a stable 4 cm peridiverticular abscess. There is slightly diminished peridiverticular fat stranding when compared the preceding study - Gen surg thinks no need for drainage at this time and can continue on IV antibiotics at least through the weekend. Pt will need and extended oral antibiotic regimen at the time of discharge. - WBC= 6.25 today, greatly improved - No abdominal symptoms at this time - If pt has worsening of loose bowel movements will need to send for C. diff testing with being on this antibiotic regimen. Chronic systolic and diastolic HF: -euvolemic currently, holding Lasix in setting of infection, cautious use of fluids- VSS - utilize Lopressor IV for now until he can take PO, digoxin changed to IV Paroxysmal atrial fibrillation: - holding Xarelto in case he would need surgery, Lopressor IV, rates controlled Parkinson's -continue carbidopa/levodopa 25/100 by mouth 4 times a day. GERD - cont Protonix 40 mg IV twice a day ? Onset Mental Impairment - MME completed at bedside today for question about the patients ability to care for himself and at home. - Scored 23/30 which is indicative of mild degree of impairment. This likely impacts his day-to-day functioning where he could benefite from assistance and support from at least a home health aid. - pt care for his who suffers from dementia which would complicate the nature of placement. He would likely do well in an assisted living facilty although he may refuse this. DVT ppx: cont Heparin in light of holding xarelto for possible surgery CODE STATUS: Full Code Disposition: From home,
[2016-02-05 12:14] VITALS: BP 136/61; PULSE 92
[2016-02-05 15:05] VITALS: BP 116/62; PULSE 88; TEMP 36.6; O2SAT 96
[2016-02-05 16:00] VITALS: O2SAT 96
[2016-02-05] MEDS: DIGOXIN 0.125 MG TAB PO SCH (16:08)
[2016-02-05] MEDS: PANTOprazole SOD 40 MG TAB PO SCH (20:05)
[2016-02-05] MEDS ORDERED: HALOPERIDOL LACTATE 5 MG/ML 1 ML VIAL ONE ×2 (21:58→21:59)
[2016-02-05] MEDS ORDERED: LORAZEPAM 2 MG/ML 1 ML VIAL ONE (21:58)
[2016-02-05] MEDS ORDERED: NURSING VERBAL MED ORDER ONE ×2 (22:00)
[2016-02-05] MEDS ORDERED: HALOPERIDOL LACTATE 5 MG/ML 1 ML VIAL IM ONE (22:15)
[2016-02-05] MEDS ORDERED: LORAZEPAM 2 MG/ML 1 ML VIAL IV ONE (22:15)
[2016-02-05] MEDS ORDERED: LORAZEPAM INJ 2 MG in SYRINGE 1 ML IV ONE (22:15)
[2016-02-06] MEDS: HEPARIN 25,000 UNIT/500ML D5W 500 ML IV PRN ×3 (03:54→19:28)
[2016-02-06] MEDS: NITROGLYCERIN OINT 2% 1GM PACKET EXT SCH ×4 (06:00→17:18)
[2016-02-06] MEDS: NSS + 20MEQ KCL 1000ML 1,000 ML IV SCH (06:19)
[2016-02-06] MEDS: PIPERACILL/TAZOBAC IV 3.375 GM in DEXTROSE 5% 100ML IV SCH ×3 (06:19→21:25)
--- NOTE | 2016-02-06 06:30 | Surgery Progress Note ---
Surgery Progress Note Date of Service Feb 06, 2016. Subjective Post OP Day: HD 4 + bowel movement, + complaints (pain stable), + diet (low fiber), + flatus Objective Vital Signs: Date Time Temp Pulse Resp B/P Pulse Ox O2 Delivery O2 Flow Rate FiO2 02/06/16 00:00 Room Air 02/05/16 16:08 86 02/05/16 16:00 96 Room Air 02/05/16 15:05 36.6 88 20 116/62 96 Room Air 02/05/16 12:14 92 136/61 02/05/16 08:00 Room Air 02/05/16 07:28 36.6 94 18 163/78 96 Room Air General Appearance: WD/WN, no apparent distress Head: normocephalic, atraumatic Neck: supple, trachea midline Respiratory/Chest: lungs clear Cardiovascular: regular rate, rhythm Abdomen: normal bowel sounds, non distended, soft, + tenderness (mild LLQ) Extremities: non-tender, no pedal edema Laboratory Results: Results Past 24 Hours Test 02/06/16 04:44 Range/Units Assessment & Plan Perforated diverticulitis, 4 cm abscess -repeat CT scan stable -afebrile -tolerating po -con't IV abx
[2016-02-06 07:34] VITALS: BP 147/79; PULSE 91; TEMP 36.5; O2SAT 98
[2016-02-06] MEDS: CARBIDOPA/LEVODOPA 25/100MG TAB PO SCH ×4 (09:07→19:26)
[2016-02-06] MEDS: PANTOprazole SOD 40 MG TAB PO SCH ×2 (09:07→19:26)
--- NOTE | 2016-02-06 11:19 | Hospitalist Progress Note ---
Hospitalist Progress Note Date of Service Feb 06, 2016. Subjective Pt evaluation today including: conversation w/ patient, conversation w/ family , physical exam, chart review, lab review, review of studies, review of inpatient medication list Pain: None PO Intake: Good Voiding: no voiding problems Pt was seen and examined this morning with and son at bedside. He denies any acute complaints, no abdominal pain or associated abominal sx. Discussion was held with the son at bedside regarding the follow up which will be required once he leaves and that home health aids will likely benefit the patient. Son is not POA, and reports he has been trying to get parents to sign paperwork for a while now. He appears to be very overwhelmed. He has previously been checking on his parents about once weekly. Constitutional: No chills, No fever, No sweats ENT: No nasal symptoms, No sore throat Respiratory: No cough, No dyspnea on exertion, No shortness of breath Cardiovascular: No chest pain, No palpitations Abdomen: No GI bleeding, No constipation, No diarrhea, No nausea, No pain, No vomiting Male : No dysuria Neurologic: No weakness Skin: No rash Objective Vital Signs Date Time Temp Pulse Resp B/P Pulse Ox O2 Delivery O2 Flow Rate FiO2 02/06/16 08:30 Room Air 02/06/16 07:34 36.5 91 18 147/79 98 Room Air 02/06/16 00:00 Room Air 02/05/16 16:08 86 02/05/16 16:00 96 Room Air 02/05/16 15:05 36.6 88 20 116/62 96 Room Air 02/05/16 12:14 92 136/61 Physical Exam General Appearance: WD/WN, no apparent distress Eyes: PERRL, EOMI ENT: hearing grossly normal Neck: no JVD Respiratory/Chest: lungs clear, normal breath sounds, no respiratory distress, no accessory muscle use Cardiovascular: regular rate, rhythm, no JVD, no murmur Abdomen: normal bowel sounds, non tender, soft, no organomegaly Extremities: non-tender, no pedal edema, no calf tenderness, + pertinent finding (edema of bilateral hands. No lower extremity edema. ) Neurologic/Psychiatric: alert, oriented x 3 Skin: normal color, warm/dry Laboratory Results Last 24 Hours Test 02/06/16 07:55 Activated Partial Thromboplast Time 52.2 SECONDS Partial Thromboplastin Ratio 2.0 Assessment and Plan (1) Colonic diverticular abscess 81 yo male with history of combined systolic and diastolic HF, presented with lower abdominal pain, diagnosed with acute diverticulitis with sigmoid abscess Acute sigmoid diverticulitis with abscess: - Zosyn IV, IV fluids, Protonix, Zofran PRN - Gen surg on board- appreciate recs - Repeat CT of the abdomen 02/04 shows no progression of the abscess. IMPRESSION: 1. Sigmoid diverticulitis with a stable 4 cm peridiverticular abscess. There is slightly diminished peridiverticular fat stranding when compared the preceding study - Gen surg thinks no need for drainage at this time and can continue on IV antibiotics at least through the weekend. Pt will need and extended oral antibiotic regimen at the time of discharge. - WBC= 6.25 02/04- can reduce CBC/CMP to every 3 days at this point unless pt becomes more symptomatic - No abdominal symptoms at this time Chronic systolic and diastolic HF: - Stop IVFs as po intake is good, pts hands appear to be slightly edematous, SBP elevated at 147. No edema of BLE - Will restart Lasix at 20 mg today, home dose is 40 mg QAM. - utilize Lopressor IV for now until he can take PO, digoxin changed to IV Paroxysmal atrial fibrillation: - holding Xarelto in case he would need surgery, Lopressor IV, rates controlled Parkinson's -continue carbidopa/levodopa 25/100 by mouth 4 times a day. GERD - cont Protonix 40 mg IV twice a day ? Onset Mental Impairment - MME completed- see document as scanned into chart - Scored /30 which is indicative of mild degree of impairment. This likely impacts his day-to-day functioning where he could benefit from assistance and support from at least a home health aid. - pt care for his who suffers from dementia which would complicate the nature of placement. He would likely do well in an assisted living facilty although he may refuse this. - Son does not have medical POA. - CM to assist with placement and home health aids for discharge planning. DVT ppx: cont Heparin in light of holding xarelto for possible surgery CODE STATUS: Full Code Disposition: From home, CM to assist with discharge planning. Continued [facility] stay due to: multiple IV medications needed
[2016-02-06] MEDS ORDERED: FUROSEMIDE 20 MG TAB PO STA (11:37)
[2016-02-06 15:41] VITALS: BP 165/85; PULSE 99; TEMP 36.5; O2SAT 99
[2016-02-06] MEDS: DIGOXIN 0.125 MG TAB PO SCH (17:18)
[2016-02-07 00:15] VITALS: BP 163/79; PULSE 96; TEMP 36.7; O2SAT 94
[2016-02-07] MEDS: NITROGLYCERIN OINT 2% 1GM PACKET EXT SCH ×2 (06:00)
[2016-02-07] MEDS: PIPERACILL/TAZOBAC IV 3.375 GM in DEXTROSE 5% 100ML IV SCH (06:09)
[2016-02-07 06:46] LABS: HEMATOCRIT 40.3 % (42-52); MEAN CELL VOLUME 91.8 fL (80-100); MEAN CORPUSCULAR HEMOGLOBIN 31.4 pg (25-34); MEAN CORPUSCULAR HGB CONC 34.2 g/dl (32-36); MEAN PLATELET VOLUME 11.3 fL (7.4-10.4); PLATELET COUNT 158 K/uL (130-400); RED BLOOD COUNT 4.39 M/uL (4.7-6.1); WHITE BLOOD COUNT 4.84 K/uL (4.8-10.8)
[2016-02-07] MEDS ORDERED: FUROSEMIDE 20 MG TAB PO SCH (08:00)
[2016-02-07 08:08] VITALS: BP 151/94; PULSE 73; TEMP 36.7; O2SAT 95
[2016-02-07] MEDS: PANTOprazole SOD 40 MG TAB PO SCH (08:20)
[2016-02-07] MEDS: CARBIDOPA/LEVODOPA 25/100MG TAB PO SCH (08:20)
--- NOTE | 2016-02-07 08:45 | Surgery Progress Note ---
Surgery Progress Note Date of Service Feb 07, 2016. Subjective Post OP Day: HD 5 + diet (low fiber), + feeling well (more alert), + flatus, No complaints, No nausea, No vomiting Objective Vital Signs: Date Time Temp Pulse Resp B/P Pulse Ox O2 Delivery O2 Flow Rate FiO2 02/07/16 08:08 36.7 73 20 151/94 95 02/07/16 00:15 36.7 96 20 163/79 94 Room Air 02/07/16 00:00 Room Air 02/06/16 19:05 Room Air 02/06/16 17:18 99 02/06/16 16:00 Room Air 02/06/16 15:41 36.5 99 18 165/85 99 Room Air General Appearance: WD/WN, no apparent distress Head: normocephalic, atraumatic Neck: supple, trachea midline Respiratory/Chest: lungs clear Cardiovascular: regular rate, rhythm Abdomen: normal bowel sounds, non tender, non distended, soft Extremities: non-tender, no pedal edema Laboratory Results: Results Past 24 Hours Test 02/07/16 05:46 Range/Units White Blood Count 4.84 4.8-10.8 K/uL Red Blood Count 4.39 4.7-6.1 M/uL Hemoglobin 13.8 14.0-18.0 g/dL Hematocrit 40.3 42-52 % Mean Corpuscular Volume 91.8 80-100 fL Mean Corpuscular Hemoglobin 31.4 25-34 pg Mean Corpuscular Hemoglobin Concent 34.2 32-36 g/dl RDW Standard Deviation 43.0 36.4-46.3 fL RDW Coefficient of Variation 12.7 11.5-14.5 % Platelet Count 158 130-400 K/uL Mean Platelet Volume 11.3 7.4-10.4 fL Activated Partial Thromboplast Time 51.1 21.0-31.0 SECONDS Partial Thromboplastin Ratio 2.0 Assessment & Plan Perforated diverticulitis, 4 cm abscess -repeat CT scan stable -afebrile -tolerating po -clinically improved -home per medical team -F/U with Dr Gaytan 2-3 weeks
[2016-02-07] MEDS ORDERED: AMOX1TAB43 PO (09:45)
--- NOTE | 2016-02-07 09:53 | Discharge Instructions ---
Discharge Instructions Admission Reason for Admission: Colonic Diverticular Abscess Discharge Discharge Diagnosis / Problem: Acute diverticulitis with pericolonic abscess Discharge Goals Goal(s): Improve function, Improve disease control, Diagnostic testing (follow up with general surgery, repeat CT scan) Activity Recommendations Activity Limitations: resume your previous activity Lifting Limitations: none Exercise/Sports Limitations: as tolerated May Resume Sexual Activity: when tolerated Shower/Bathe: no limitations Driving or Machine Use: resume one week after discharge . Instructions / Follow-Up Instructions / Follow-Up Medications: - AUGMENTIN: take twice a day for 10 more days, first dose will be tonight Diet: avoid excessive fiber for first several days then you can advance to a normal fiber diet FOLLOW UP - Dr. Gaytan, general surgeon, would like to see you in clinic in 2 weeks, call his office to schedule hospital follow up, - Dr. Gusman, call office once they are open to schedule a hospital follow up one week from now, either end of this week or beginning of next week this is very important for transition of care, Dr. Gusman can review hospitalization and medications and plan going forward Case management will make referrals for home nursing visits and some home therapy after discharge. They will also provide you with a list of services that are for hire for help at home. Current Hospital Diet Patient's current hospital diet: Low Fiber Diet Discharge Diet Recommended Diet: AHA Diet (Heart Healthy), Low Fiber Diet Pending Studies Studies pending at discharge: no Laboratory Results Last Resulted CBC 02/07/16 05:46 Last Resulted BMP 02/05/16 05:47 Hemoglobin A1c Test 12/15/15 07:46 Range/Units Estimated Average Glucose 108 mg/dl Hemoglobin A1c 5.4 4.5-5.6 % Lipid Panel Test 12/15/15 07:46 Range/Units Triglycerides Level 85 0-150 mg/dl Cholesterol Level 116 0-200 mg/dl HDL Cholesterol 46 mg/dl Cholesterol/HDL Ratio 2.5 LDL Cholesterol, Calculated 53 mg/dl Medical Emergencies . Who to Call and When: Medical Emergencies: If at any time you feel your situation is an emergency, please call 911 immediately. . Non-Emergent Contact Non-Emergency issues call your: Primary Care Provider Call Non-Emergent contact if: you have a fever, your pain is worsening, you have any medication questions . Past History Medical & Surgical History: (1) Colonic diverticular abscess . "Provider Documentation" section prepared by Jarrod Marshall. VTE Core Measure Inpt VTE Proph given/why not?: Unfractionated heparin SQ, Other Anticoagulation (xarelto) [place] Drug Monitoring Program Search Results: no issues identified
[2016-02-07 10:00] VITALS: BP 151/94; PULSE 73; TEMP 36.7; O2SAT 95
--- NOTE | 2016-02-07 16:10 | Discharge Summary ---
Discharge Summary Admission Date: Feb 02, 2016 at 23:33 Discharge Date: Feb 07, 2016 Discharge Disposition: Home with services Principal Diagnosis: Sigmoid diverticulitis with pericolonic abscess Problems/Secondary Diagnoses: Atrial fibrillation Hospital delirium Mild dementia, MMS exam Procedures: CT abdomen and pelvis: 4cm abscess with diverticulitis repeat CT abdomen/pelvis: showed that abscess stable at 4cm Consultations: General surgery Medication Reconciliation New Medications: Amoxicillin & Pot Clavulanate (Amoxicillin/Clavulanate P) 1 Tab Tab 875 MG PO BIDM, #20 TAB 0 Refills Continued Medications: Aspirin Enteric Coated (Ecotrin Or Generic *) 81 Mg Ectab 1 TAB PO DAILY Atorvastatin (Lipitor) 40 Mg Tab 40 MG PO HS, TAB Carbidopa/Levodopa (Sinemet 25MG/100MG) Tab 1 TAB PO QID, TAB Carvedilol (Coreg) 6.25 Mg Tab 1 TAB PO BID for 90 Days, #180 TAB 1 Refill Cholecalciferol (Vitamin D) 1,000 Unit Tab 2000 INTER.UNIT PO DAILY Cyanocobalamin (Vitamin B-12) 500 Mcg Tab 500 MCG PO DAILY, TAB Digoxin (Digitek) 0.125 Mg Tab 0.125 MG PO DAILY Duloxetine HCl (Cymbalta) 60 Mg Cap 60 MG PO DAILY Furosemide (Lasix) 20 Mg Tab 40 MG PO DAILY, TAB Iron-Vitamin C (Vitron-C) 1 Tab Tab 1 TAB PO DAILY Isosorbide Mononitrate Ext Rel (Imdur Ext Rel) 60 Mg Ertab 60 MG PO QAM, TAB Metoprolol Tartrate (Lopressor) (Lopressor) 100 Mg Tab 100 MG PO QAM, TAB Nitroglycerin (Nitrostat) 0.4 Mg Tab 0.4 MG UT PRN PRN for Chest Pain, BTL Pantoprazole (Protonix) 40 Mg Tab 40 MG PO BID Potassium Ext Rel (Klor-Con) 20 Meq Tabcr 20 MEQ PO DAILY, TAB Rivaroxaban (Xarelto) 15 Mg Tab 1 TAB PO DAILY Valsartan (Diovan) 160 Mg Tab 160 MG PO DAILY, TAB Discharge Exam Patient feeling well, mental status back to baseline. Eating full meals, moving bowels, no abdominal pain or nausea/vomiting. Discussed plan for d/c with patient and his son. Son reports he is walking very well, better than prior to admission actually. He is okay with discharge today on oral antibiotics. Discussed plan for follow up with PCP and general surgery, will be set up with home therapy and nursing, info given on home services for [place]. Review of Systems: Constitutional: No chills, No fatigue, No fever, No problem reported, No sweats, No weakness, No weight loss Eyes: No diplopia, No discharge, No eye pain, No problem reported, No redness, No worsening of vision ENT: No dental problems, No hearing loss, No nasal symptoms, No problem reported, No sore throat, No tinnitus, No trouble swallowing, No unusual epistaxis Respiratory: No cough, No dyspnea at rest, No dyspnea on exertion, No hemoptysis, No problem reported, No shortness of breath, No sputum, No wheezing Cardiovascular: No PND, No chest pain, No claudication, No edema, No orthopnea, No palpitations, No problem reported Abdomen: + diarrhea (stools loose, but only 1-2 per day), No GI bleeding, No constipation, No nausea, No pain, No problem reported, No vomiting Musculoskeletal: No calf pain, No joint pain, No muscle pain, No problem reported, No swelling Genitourinary - Male: No dysuria, No hematuria, No urinary frequency, No urinary urgency Neurologic: + weakness, No balance problems, No memory loss, No numbness/ tingling, No paralysis, No problem reported, No vertigo Psychiatric: No anhedonism, No anxiety, No depression symptoms, No insomnia , No problem reported, No substance abuse Endocrine: No excessive thirst, No excessive urination, No fatigue, No problem reported Hematologic / Lymphatic: No abnormal bleeding/bruising, No clotting problems , No night sweats, No problem reported, No swollen lymph nodes Integumentary: No bleeding, No color change, No itch, No new/changing skin lesions, No problem reported, No rash Physical Exam: General Appearance: WD/WN, no apparent distress Eyes: normal inspection, EOMI, sclerae normal ENT: normal ENT inspection, hearing grossly normal, pharynx normal Neck: supple, no adenopathy, no JVD, trachea midline Respiratory/Chest: chest non-tender, lungs clear, normal breath sounds, no respiratory distress, no accessory muscle use Cardiovascular: regular rate, rhythm, no edema, no gallop, no JVD, no murmur , normal peripheral pulses Abdomen / GI: normal bowel sounds, non tender, soft, no organomegaly Extremities: normal inspection, no calf tenderness, normal capillary refill , no pedal edema, normal range of motion Neurologic/Psychiatric: invasive physician II-XII nml as tested, no motor/sensory deficits , alert, normal mood/affect, normal reflexes, oriented x 3 Skin: normal color, warm/dry, no rash Lymphatic: no adenopathy Hospital Course 81 yo male with history of combined systolic and diastolic HF, paroxysmal atrial fibrillation, pacemaker, presented with lower abdominal pain, diagnosed with acute diverticulitis with sigmoid abscess Acute sigmoid diverticulitis with abscess: - Zosyn IV for 5 days total, IV fluids, Protonix, Zofran PRN - Gen surg on board- appreciate recs - Repeat CT of the abdomen 02/04 shows no progression of the abscess. - WBC normal for several days, afebrile, VSS for several days - tolerating diet, moving bowels, loose but only 1-2 per day - will d/c home today on Augmentin for 10 more days, follow up with general surgery in 2 weeks, PCP in one week Chronic systolic and diastolic HF: euvolemic on discharge, has been taking PO metoprolol, digoxin, Lasix on board Paroxysmal atrial fibrillation: - rates controlled, V paced, will resume Xarelto on d/c for stroke prevention - was treated with heparin gtt while admitted in case he needed surgery Parkinson's -continue carbidopa/levodopa 25/100 by mouth 4 times a day. GERD - cont Protonix 40 mg IV twice a day Dementia, mild: scored a 23 out of 30 on MM exam - independent, takes care of his at home and takes care of his own medications, still drives, does house work - going to remain at home with home nursing, son looking into aides for help during the day and he can help at night Hospital delirium: multifactorial, due to infection, prolonged hospital stay, insomnia was treated with Ativan and haldol that made things worse for 24 hours resolved completely today, ready for d/c home DVT ppx: cont Heparin in light of holding xarelto for possible surgery Plan: d/c to home on Augmentin, home nursing, f/u with PCP and then general surgery Total Time Spent: Greater than 30 minutes This includes examination of the patient, discharge planning, medication reconciliation, and communication with other providers. Discharge Instructions Please refer to the electronic Patient Visit Report (Discharge Instructions) for additional information. Follow-Up Dr. Gusman in one week Dr. Gaytan in two weeks Additional Copies To August Gusman M.D.; Chevy Hargrove M.D.
[2016-02-07] MEDS ORDERED: AMOXICILLIN/CLAVULANATE TAB 875 MG TAB PO SCH (17:00)
== END 2016-02-07 11:05 | disposition home health service (06) | DRG 391 ==
LOC: ENRESERVTM → ENRESERVDT → EDBD 16:29 → C.EDB 16:30 → C.MED 23:33 → C.4E 02-04 15:24
PROVIDERS: ADMIT Hospitalist; ATTEND Internal Medicine
DX: K57.20 Diverticulitis of large intestine with perforation and abscess without bleeding (principal); I50.43 Acute on chronic combined systolic (congestive) and diastolic (congestive) heart failure; F03.90 Unspecified dementia, unspecified severity, without behavioral disturbance, psychotic disturbance, mood disturbance, and anxiety; G20 Parkinson's disease; G47.00 Insomnia, unspecified; I10 Essential (primary) hypertension; I48.0 Paroxysmal atrial fibrillation; K21.9 Gastro-esophageal reflux disease without esophagitis; K40.90 Unilateral inguinal hernia, without obstruction or gangrene, not specified as recurrent; N28.1 Cyst of kidney, acquired; N40.0 Benign prostatic hyperplasia without lower urinary tract symptoms; Z87.891 Personal history of nicotine dependence; R41.0 Disorientation, unspecified

== ENCOUNTER → 2016-07-27 | Outpatient (CLI) | payer OTHER ==
[~2016-07-27] MED LIST changes: +AMOX1TAB43 PO; +CHOL100010 PO; +CYAN500T PO; +CYM/60 PO; +DIGO30TA PO; +FERRTAB18 PO
[2016-07-27 10:45] LABS: ALT/SGPT 12 U/L (12-78); BLOOD UREA NITROGEN 15 mg/dl (7-18); BUN/CREATININE RATIO 15.4 (10-20); CARBON DIOXIDE 29 mmol/L (21-32); CHLORIDE 105 mmol/L (98-107); GLUCOSE 110 mg/dl (70-99); POTASSIUM 3.7 mmol/L (3.5-5.1); SODIUM 141 mmol/L (136-145)
[2016-07-27 10:49] LABS: CALCIUM 8.8 mg/dl (8.5-10.1)
[2016-07-27 10:55] LABS: ALB/GLOB RATIO 0.9 (0.9-2); ALKALINE PHOSPHATASE 69 U/L (45-117); AST/SGOT 23 U/L (15-37); THYROID STIMULATING HORMONE 0.754 uIu/ml (0.300-4.500)
[2016-07-27 11:23] LABS: ESTIMATED AVERAGE GLUCOSE 120 mg/dl; HA1C FLAG Normal (Normal)
--- NOTE | 2016-08-02 08:39 | CODING QUERY MEDICAL NECESSITY ---
SUPPORTING DIAGNOSIS NEEDED A supporting diagnosis is required for the test/procedure performed on this patient in order for us to be reimbursed by the patient's insurance. Please provide a supporting diagnosis for the following test/procedure listed below next to the test name along with your signature. *If there is no additional diagnosis for this patient that would support the following test/procedure please document that below next to the test/procedure. Test(s)/Procedure(s) that require a supporting diagnosis: * HEMOGLOBIN A1C DIAGNOSIS: Provider Signature: Date: Thank you Radha Naqvi [employer] Once completed, please kindly fax back to [phone] For questions please call [phone]
== END | disposition home or self-care (01) ==
LOC: C.LAB1850 09:29
PROVIDERS: ATTEND Internal Medicine
DX: I48.0 Paroxysmal atrial fibrillation (principal); I50.42 Chronic combined systolic (congestive) and diastolic (congestive) heart failure; R73.03 Prediabetes

== ENCOUNTER → 2017-04-21 | Outpatient (CLI) | payer OTHER ==
[2017-04-21 10:31] LABS: BASO % 0.2 %; BASO ABS # 0.01 K/uL (0-0.2); EOS % 4.1 %; EOS ABS # 0.22 K/uL (0-0.5); HEMATOCRIT 43.6 % (42-52); IG# 0.01 K/uL (0.00-0.02); LYMPH % 18.8 %; LYMPH ABS # 1.01 K/uL (1.2-3.4); MEAN CELL VOLUME 94.4 fL (80-100); MEAN CORPUSCULAR HEMOGLOBIN 32.5 pg (25-34); MEAN CORPUSCULAR HGB CONC 34.4 g/dl (32-36); MEAN PLATELET VOLUME 11.8 fL (7.4-10.4); MONO ABS # 0.48 K/uL (0.11-0.59); NEUT % 67.7 %; NEUT ABS # 3.63 K/uL (1.4-6.5); PLATELET COUNT 146 K/uL (130-400); RED CELL DISTRIBUTION WIDTH CV 13.5 % (11.5-14.5); RED CELL DISTRIBUTION WIDTH SD 46.2 fL (36.4-46.3); WHITE BLOOD COUNT 5.36 K/uL (4.8-10.8)
[2017-04-21 10:44] LABS: ALBUMIN 3.9 gm/dl (3.4-5.0); ALT/SGPT 13 U/L (12-78); AST/SGOT 37 U/L (15-37); BLOOD UREA NITROGEN 19 mg/dl (7-18); CALCIUM 9.3 mg/dl (8.5-10.1); CARBON DIOXIDE 33 mmol/L (21-32); CREATININE 1.08 mg/dl (0.60-1.40); GLUCOSE 115 mg/dl (70-99); POTASSIUM 3.5 mmol/L (3.5-5.1); SODIUM 138 mmol/L (136-145)
[2017-04-21 10:47] LABS: ALKALINE PHOSPHATASE 71 U/L (45-117); CHOLESTEROL 130 mg/dl (0-200); LDL CHOLESTEROL CALCULATED 56 mg/dl; TOTAL PROTEIN 7.9 gm/dl (6.4-8.2)
[2017-04-21 10:58] LABS: HEMOGLOBIN A1C 5.8 % (4.5-5.6)
== END | disposition home or self-care (01) ==
LOC: C.LAB1850 09:05
PROVIDERS: ATTEND Internal Medicine
DX: I25.10 Atherosclerotic heart disease of native coronary artery without angina pectoris (principal); E78.5 Hyperlipidemia, unspecified; R73.03 Prediabetes; I48.0 Paroxysmal atrial fibrillation

== ENCOUNTER → 2017-08-23 | Outpatient (CLI) | payer OTHER ==
[~2017-08-23] MED LIST changes: +AZL/5 PO; +CEFD300C2 PO; +CIPR1TAB11 PO; +POTA-639 PO; -POTA20TA16 PO
[2017-08-23 16:19] LABS: BLOOD UREA NITROGEN 20 mg/dl (7-18); CREATININE 1.15 mg/dl (0.60-1.40)
== END | disposition home or self-care (01) ==
LOC: C.LAB 15:27
PROVIDERS: ATTEND Emergency Medicine
DX: S91.104D Unspecified open wound of right lesser toe(s) without damage to nail, subsequent encounter (principal); X58.XXXD Exposure to other specified factors, subsequent encounter

== ENCOUNTER → 2017-08-25 | Outpatient (CLI) | payer OTHER ==
--- NOTE | 2017-08-25 12:37 | DIAGNOSTIC IMAGING REPORT ---
CT OF THE RIGHT FOOT WITH CONTRAST CLINICAL HISTORY: Right second toe nonhealing wound. Evaluate for osteomyelitis. COMPARISON STUDY: Right second toe radiographs August 08, 2017. TECHNIQUE: Axial images of the right foot were obtained following intravenous injection of 92 cc Optiray 320 IV. Sagittal and coronal reconstructions were viewed. FINDINGS: Tarsometatarsal joints are intact. Talar dome is intact. There is no acute fracture within the right foot. Note is made of moderate soft tissue swelling of the right second toe. No rim-enhancing fluid collection is identified to suggest an abscess. There is no evidence for osteomyelitis within the right second toe. No mass or fluid collection is identified within the right foot. 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 IMPRESSION: Soft tissue swelling of the right second toe consistent with cellulitis. No evidence for osteomyelitis. No abscess. Electronically signed by: Mykel Zarate M.D. 08/25/2017 12:35 PM Dictated Date/Time: 08/25/2017 12:23 PM
== END | disposition home or self-care (01) ==
LOC: C.CTS 11:35
PROVIDERS: ATTEND Emergency Medicine
DX: S91.104A Unspecified open wound of right lesser toe(s) without damage to nail, initial encounter (principal); X58.XXXA Exposure to other specified factors, initial encounter; M79.89 Other specified soft tissue disorders

== ENCOUNTER 2017-09-14 16:32 | Inpatient (IN) | payer OTHER ==
[~2017-09-14] VITALS: Ht 180.3 cm; Wt 75.5 kg
[~2017-09-14 16:32] MED LIST changes: -AMOX1TAB43 PO; -CIPR1TAB11 PO
[2017-09-14] MEDS ORDERED: VANCOMYCIN 1GM ED/ASU OMNICELL IV STA (17:26)
[2017-09-14] MEDS ORDERED: CEFTRIAXONE SOD INJ 1 GM ADDVIAL IV STA (17:26)
--- NOTE | 2017-09-14 17:30 | EMERGENCY ROOM VISIT NOTE ---
History Report prepared by Darek: Deidre Brady Under the Supervision of: Dr. Sylvain Onofre M.D. First contact with patient: 17:19 Chief Complaint: REFERRED BY DOCTOR Stated Complaint: RIGHT FOOT, 2ND TOE HAS INFECTION, OFFICE OF AGING History of Present Illness The patient is an 82 year old male who presents to the Emergency Room with complaints of a worsening infection in his 2nd right toe for the past 3 days. His family states he has followed with [facility] in the past and is supposed to see them next on September 19. Today, the Office of Aging came to check on the patient and after seeing his foot, referred him here to the ED. The patient rates his discomfort as a 4/10 in severity. The patient's son states he has seemed to be confused recently and "seeing things that aren't there". The patient is not able to state the date or current president when asked. He denies any recent abdominal pain. Source of History: patient Onset: 3 days ENGROSSER Position: foot (2nd toe on right foot) Symptom Intensity: 4/10 Timing: worsening Associated Symptoms: No abdominal pain Review of Systems See HPI for pertinent positives & negatives. A total of 10 systems reviewed and were otherwise negative. Past Medical & Surgical Medical Problems: (1) Acute respiratory distress (2) Congestive heart failure (3) Osteomyelitis of toe of right foot Family History No pertinent family history Social History Smoking Status: Former Smoker Alcohol Use: none Drug Use: none Marital Status: Housing Status: lives with family Occupation Status: retired Current/Historical Medications Scheduled Aspirin (Aspirin Ec), 81 MG PO DAILY Atorvastatin (Lipitor), 40 MG PO HS Carbidopa/Levodopa (Sinemet 25MG/250MG), 1 TAB PO QID Cholecalciferol (Vitamin D), 1,000 INTER.UNIT PO DAILY Cyanocobalamin (Vitamin B-12), 500 MCG PO DAILY Digoxin (Digitek), 0.125 MG PO DAILY Duloxetine HCl (Cymbalta), 60 MG PO DAILY Furosemide (Lasix), 40 MG PO UD Iron-Vitamin C (Vitron-C), 1 TAB PO DAILY Isosorbide Mononitrate Ext Rel (Imdur Ext Rel), 60 MG PO QAM Metoprolol Succ (Toprol Xl) (Toprol-Xl ), 150 MG PO DAILY Pantoprazole (Protonix), 40 MG PO BID Potassium Ext Rel (Klor-Con), 20 MEQ PO UD Rasagiline (Azilect), 0.5 MG PO DAILY Rivaroxaban (Xarelto), 15 MG PO DAILY Valsartan (Diovan), 80 MG PO DAILY Scheduled PRN Nitroglycerin (Nitrostat), 0.4 MG UT PRN PRN for Chest Pain Allergies Coded Allergies: No Known Allergies (Unverified , 09/14/17) Physical Exam Vital Signs Date Time Temp Pulse Resp B/P (MAP) Pulse Ox O2 Delivery O2 Flow Rate FiO2 09/14/17 22:00 63 16 139/55 100 Room Air 09/14/17 20:30 99 Room Air 09/14/17 20:15 68 136/76 83 140/58 69 123/68 09/14/17 18:50 68 18 147/66 99 Room Air 09/14/17 17:50 Room Air 09/14/17 17:21 66 09/14/17 16:51 36.3 56 18 102/61 96 Room Air Physical Exam GENERAL: Awake, alert, well-appearing, in no acute distress HENT: Normocephalic, atraumatic. Oropharynx unremarkable. EYES: Normal conjunctiva. Sclera non-icteric. NECK: Supple. No nuchal rigidity. FROM. No JVD. RESPIRATORY: Clear to auscultation. CARDIAC: Regular rate, normal rhythm. Extremities warm and well perfused. Pulses equal. ABDOMEN: Soft, non-distended. No tenderness to palpation. No rebound or guarding. No masses. RECTAL: Deferred. MUSCULOSKELETAL: Chest examination reveals no tenderness. The back is symmetrical on inspection without obvious abnormality. There is no CVA tenderness to palpation. No joint edema. LOWER EXTREMITIES: 2nd right toe is grossly swollen with pus dripping from it. Calves are equal size bilaterally and non-tender. No discoloration. NEURO: Normal sensorium. No sensory or motor deficits noted. SKIN: No rash or jaundice noted. Medical Decision & Procedures ER Provider Diagnostic Interpretation: Radiology results as stated below per my review and radiologist interpretation: CT SCAN OF THE BRAIN WITHOUT IV CONTRAST CLINICAL HISTORY: Change in mental status. COMPARISON STUDY: CT of the brain dated 02/02/2016. TECHNIQUE: Unenhanced axial CT scan of the brain is performed from the vertex to the skull base. A dose lowering technique was utilized adhering to the principles of ALARA. CT DOSE: 614.27 mGy.cm FINDINGS: Brain parenchyma: There are age-related involutional changes noting mild subcortical and periventricular microangiopathic change. There is no hemorrhage, mass effect, or evidence of acute territorial ischemia by CT criteria. Dunn-white matter is preserved. No extra-axial fluid collection is seen. Ventricles, sulci, cisterns: Prominent secondary to involutional change. Intracranial vasculature: There is atherosclerotic calcification of the cavernous carotid and vertebral arteries. Calvarium: Unremarkable. Sinuses and mastoids: The visualized paranasal sinuses are clear. The mastoid air cells are well pneumatized. Orbits: The bony orbits are grossly intact. IMPRESSION: There is no hemorrhage, mass effect, or evidence of acute territorial ischemia by CT criteria. Electronically signed by: Matthias Parsons M.D. 09/14/2017 6:20 PM Laboratory Results 09/14/17 17:55 Red Blood Count 4.05, Mean Corpuscular Volume 93.6, Mean Corpuscular Hemoglobin 31.6, Mean Corpuscular Hemoglobin Concent 33.8, Mean Platelet Volume 10.9, Neutrophils (%) (Auto) 62.4, Lymphocytes (%) (Auto) 23.9, Monocytes (%) (Auto) 10.7, Eosinophils (%) (Auto) 2.6, Basophils (%) (Auto) 0.2, Neutrophils # (Auto ) 3.31, Lymphocytes # (Auto) 1.27, Monocytes # (Auto) 0.57, Eosinophils # (Auto ) 0.14, Basophils # (Auto) 0.01 09/14/17 17:55 Test 09/14/17 17:55 09/14/17 19:45 White Blood Count 5.31 K/uL (4.8-10.8) Red Blood Count 4.05 M/uL (4.7-6.1) Hemoglobin 12.8 g/dL (14.0-18.0) Hematocrit 37.9 % (42-52) Mean Corpuscular Volume 93.6 fL (80-100) Mean Corpuscular Hemoglobin 31.6 pg (25-34) Mean Corpuscular Hemoglobin Concent 33.8 g/dl (32-36) Platelet Count 142 K/uL (130-400) Mean Platelet Volume 10.9 fL (7.4-10.4) Neutrophils (%) (Auto) 62.4 % Lymphocytes (%) (Auto) 23.9 % Monocytes (%) (Auto) 10.7 % Eosinophils (%) (Auto) 2.6 % Basophils (%) (Auto) 0.2 % Neutrophils # (Auto) 3.31 K/uL (1.4-6.5) Lymphocytes # (Auto) 1.27 K/uL (1.2-3.4) Monocytes # (Auto) 0.57 K/uL (0.11-0.59) Eosinophils # (Auto) 0.14 K/uL (0-0.5) Basophils # (Auto) 0.01 K/uL (0-0.2) RDW Standard Deviation 44.6 fL (36.4-46.3) RDW Coefficient of Variation 13.0 % (11.5-14.5) Immature Granulocyte % (Auto) 0.2 % Immature Granulocyte # (Auto) 0.01 K/uL (0.00-0.02) Anion Gap 4.0 mmol/L (3-11) Est Creatinine Clear Calc Drug Dose 52.8 ml/min Estimated GFR () 70.8 Estimated GFR (Non- 61.1 BUN/Creatinine Ratio 14.1 (10-20) Calcium Level 8.3 mg/dl (8.5-10.1) Total Bilirubin 0.6 mg/dl (0.2-1) Direct Bilirubin 0.2 mg/dl (0-0.2) Aspartate Amino Transf (AST/SGOT) 19 U/L (15-37) Alanine Aminotransferase (ALT/SGPT) 12 U/L (12-78) Alkaline Phosphatase 62 U/L (45-117) Total Creatine Kinase 70 U/L (39-308) Creatine Kinase MB 1.3 ng/ml (0.5-3.6) Creatine Kinase MB Ratio 1.9 (0-3.0) Troponin I 0.016 ng/ml (0-0.045) Total Protein 6.8 gm/dl (6.4-8.2) Albumin 3.2 gm/dl (3.4-5.0) Thyroid Stimulating Hormone (TSH) 1.280 uIu/ml (0.300-4.500) Urine Color DK YELLOW Urine Appearance CLEAR (CLEAR) Urine pH 5.0 (4.5-7.5) Urine Specific [place] 1.020 (1.000-1.030) Urine Protein NEG (NEG) Urine Glucose (UA) NEG (NEG) Urine Ketones TRACE (NEG) Urine Occult Blood NEG (NEG) Urine Nitrite NEG (NEG) Urine Bilirubin NEG (NEG) Urine Urobilinogen NEG (NEG) Urine Leukocyte Esterase NEG (NEG) Labs reviewed by ED physician. Medications Administered Medications (Trade) Dose Ordered Sig/Remedios Route Start Time Stop Time Status Last Admin Dose Admin Ceftriaxone Sodium (Rocephin Inj) 1 gm NOW STAT IV 09/14/17 17:26 09/14/17 17:31 DC 09/14/17 18:50 1 GM Vancomycin HCl (Vancomycin 1gm Ed/Asu Omnicell) 1 gm NOW STAT IV 09/14/17 17:26 09/14/17 17:31 DC 09/14/17 20:11 1 GM ECG Per My Interpretation Indication: altered mental status Rate (beats per minute): 61 Rhythm: other (paced rhythm) Findings: other (No ST elevation, no ST depression) ED Course 1721: Past medical records reviewed. The patient was evaluated in room C1. A complete history and physical examination was performed. This is an 82-year- old male who presents emergency department over concerns of the patient is not caring for himself at home. Office of aging was involved earlier today. The patient does have an infection to his toe which he is no longer following up with wound clinic for. X-rays of the toe are concerning for osteomyelitis. Patient was started on Rocephin and vancomycin. The patient does not know where he is the date or who the president is. For this reason I did discuss the case with the hospitalist service who agreed to admit the patient. Patient and family were in agreement with the treatment plan. Medical Decision Differential diagnosis: Etiologies such as cellulitis, abscess, MRSA infection, DVT, necrotizing fasciitis, dermatitis, drug eruption, as well as others were entertained. Impression Primary Impression: Osteomyelitis of toe of right foot Scribe Attestation The scribe's documentation has been prepared under my direction and personally reviewed by me in its entirety. I confirm that the note above accurately reflects all work, treatment, procedures, and medical decision making performed by me. Departure Information Dispostion Still a Patient Referrals Gusman, Christopher E.,M.D. (PCP) Patient Instructions [facility]
[2017-09-14] MEDS ORDERED: ASPI81TA28 PO (17:55)
[2017-09-14] MEDS ORDERED: DVN80 PO (18:01)
[2017-09-14] MEDS ORDERED: CARB25TA14 PO (18:05)
[2017-09-14] MEDS ORDERED: METO100T44 PO (18:06)
[2017-09-14 18:11] LABS: BASO % 0.2 %; BASO ABS # 0.01 K/uL (0-0.2); EOS % 2.6 %; EOS ABS # 0.14 K/uL (0-0.5); HEMATOCRIT 37.9 % (42-52); HEMOGLOBIN 12.8 g/dL (14.0-18.0); IG# 0.01 K/uL (0.00-0.02); LYMPH % 23.9 %; LYMPH ABS # 1.27 K/uL (1.2-3.4); MEAN CELL VOLUME 93.6 fL (80-100); MEAN CORPUSCULAR HEMOGLOBIN 31.6 pg (25-34); MEAN CORPUSCULAR HGB CONC 33.8 g/dl (32-36); MEAN PLATELET VOLUME 10.9 fL (7.4-10.4); MONO % 10.7 %; MONO ABS # 0.57 K/uL (0.11-0.59); NEUT % 62.4 %; NEUT ABS # 3.31 K/uL (1.4-6.5); PLATELET COUNT 142 K/uL (130-400); RED CELL DISTRIBUTION WIDTH SD 44.6 fL (36.4-46.3); WHITE BLOOD COUNT 5.31 K/uL (4.8-10.8)
--- NOTE | 2017-09-14 18:21 | DIAGNOSTIC IMAGING REPORT ---
CT SCAN OF THE BRAIN WITHOUT IV CONTRAST CLINICAL HISTORY: Change in mental status. COMPARISON STUDY: CT of the brain dated 02/02/2016. TECHNIQUE: Unenhanced axial CT scan of the brain is performed from the vertex to the skull base. A dose lowering technique was utilized adhering to the principles of ALARA. CT DOSE: 614.27 mGy.cm FINDINGS: Brain parenchyma: There are age-related involutional changes noting mild subcortical and periventricular microangiopathic change. There is no hemorrhage, mass effect, or evidence of acute territorial ischemia by CT criteria. Dunn-white matter is preserved. No extra-axial fluid collection is seen. Ventricles, sulci, cisterns: Prominent secondary to involutional change. Intracranial vasculature: There is atherosclerotic calcification of the cavernous carotid and vertebral arteries. Calvarium: Unremarkable. Sinuses and mastoids: The visualized paranasal sinuses are clear. The mastoid air cells are well pneumatized. Orbits: The bony orbits are grossly intact. IMPRESSION: There is no hemorrhage, mass effect, or evidence of acute territorial ischemia by CT criteria. Electronically signed by: Matthias Parsons M.D. 09/14/2017 6:20 PM Dictated Date/Time: 09/14/2017 6:18 PM
[2017-09-14 18:57] LABS: ALBUMIN 3.2 gm/dl (3.4-5.0); CALCIUM 8.3 mg/dl (8.5-10.1); CKMB 1.3 ng/ml (0.5-3.6); CREATININE 1.11 mg/dl (0.60-1.40); POTASSIUM 3.7 mmol/L (3.5-5.1); TOTAL PROTEIN 6.8 gm/dl (6.4-8.2)
--- NOTE | 2017-09-14 19:21 | DIAGNOSTIC IMAGING REPORT ---
SINGLE VIEW CHEST CLINICAL HISTORY: Generalized weakness. FINDINGS: An AP, portable, upright chest radiograph is compared to study dated 02/02/2016. The examination is degraded by portable technique and patient rotation. A 3-lead cardiac AICD is unchanged in position and largely obscures the left mid chest. The heart is enlarged and there is atherosclerotic calcification of the thoracic aorta. The pulmonary vasculature is noncongested. Chronic interstitial thickening is similar to previous. No airspace consolidation or large pleural effusion is identified. No pneumothorax is seen. The skeletal structures are osteopenic. The bony thorax is grossly intact. IMPRESSION: 1. Cardiomegaly and AICD. There is no radiographic evidence of congestive failure. 2. No airspace consolidation or large pleural effusion is seen. Electronically signed by: Matthias Parsons M.D. 09/14/2017 7:19 PM Dictated Date/Time: 09/14/2017 7:18 PM
--- NOTE | 2017-09-14 19:41 | DIAGNOSTIC IMAGING REPORT ---
RIGHT FOOT 3 VIEWS; RIGHT SECOND TOE 3 VIEWS CLINICAL HISTORY: Right foot pain. Second toe infection. FINDINGS: 3 views of the right foot with 3 additional views of the right second toe are obtained. Correlation is made with radiographs of the right second toe dated 08/08/[address] scan of the right foot dated 08/25/2017. The skeletal structures are osteopenic. No fracture is seen. No periostitis is identified. Bony erosion is suggested along the medial aspect of the base of the second middle phalanx. No additional foci of erosive change are identified. There is a mild hallux valgus, with moderate arthritic change at the first metatarsophalangeal joint. Mild osteoarthritic change is seen involving the interphalangeal joints. Soft tissue swelling is present in the second toe. No radiodense foreign body is identified. No subcutaneous gas is seen. IMPRESSION: 1. There is no radiographic evidence of acute fracture. 2. There is bony erosion seen involving the medial base of the second middle phalanx. This is new from prior examinations and is concerning for osteomyelitis. Clinical correlation will be required. 3. Osteopenia, hallux valgus, and arthritic change as above. Electronically signed by: Matthias Parsons M.D. 09/14/2017 7:40 PM Dictated Date/Time: 09/14/2017 7:35 PM
[2017-09-14] MEDS ORDERED: VANCOMYCIN 1GM ED/ASU OMNICELL ONE (20:10)
--- NOTE | 2017-09-14 20:24 | DIAGNOSTIC IMAGING REPORT ---
ULTRASOUND RIGHT LOWER EXTREMITY VENOUS CLINICAL HISTORY: Right leg erythema and infection. COMPARISON STUDY: Right lower extremity venous ultrasound dated 04/16/2013. TECHNIQUE: Real-time, grayscale, and color Doppler sonography of the deep veins of the right lower extremity was performed from the inguinal crease to the calf. Compression and augmentation were utilized. FINDINGS: There is no sonographic evidence of deep venous thrombosis identified in the right lower extremity. The common femoral, superficial femoral, and popliteal veins are patent and normally compressible. The greater saphenous vein and the profunda femoris vein at the junction with the common femoral vein are clear. The visualized calf veins are patent. IMPRESSION: There is no sonographic evidence of deep venous thrombosis identified in the right lower extremity. Electronically signed by: Matthias Parsons M.D. 09/14/2017 8:23 PM Dictated Date/Time: 09/14/2017 8:23 PM
[2017-09-14 20:30] VITALS: O2SAT 99; BMI 22.8
[2017-09-14] MEDS ORDERED: NITROGLYCERIN 0.4 MG SL PER TAB CHARGE UT PRN (21:45)
[2017-09-14] MEDS ORDERED: ACETAMINOPHEN 325 MG TAB PO PRN (21:45)
[2017-09-14] MEDS ORDERED: HEPARIN SOD 5000 UNIT/0.5 ML CARP SQ SCH (21:45)
[2017-09-14] MEDS ORDERED: VANCOMYCIN CONSULT ACTIVE PRN (22:30)
[2017-09-14] MEDS ORDERED: PIPERACILL/TAZOBAC CONSULT ACTIVE PRN (22:30)
--- NOTE | 2017-09-14 22:39 | History and Physical ---
History & Physical Date & Time of Service: Sep 14, 2017 at 22:20 Chief Complaint: Right Foot, 2ND Toe Has Infection, [facility] Primary Care Physician: August Gusman M.D. History of Present Illness Source: patient, family, hospital records The patient is an 82-year-old male who presents to the emergency department with complaint of worsening infection, redness and swelling in his right second toe over the past 3 days. He has been followed by the wound clinic in the past , and has a pending appointment for September 19. He was seen by the office of aging at his home, who then referred him into the ED for assessment after seeing his foot. The patient's son reports that the patient seems more confused recently, and is having hallucinations, seeing things that are not there. The patient is oriented only to himself. Past Medical/Surgical History Medical Problems: (1) Acute chest pain (2) Acute respiratory distress (3) Colonic diverticular abscess (4) Congestive heart failure (5) Ischemic cardiomyopathy (6) Osteomyelitis of toe of right foot (7) RLQ abdominal pain (8) SOB (shortness of breath) (9) Traumatic hematoma of left hand (10) Traumatic hematoma of left hand Family History No pertinent family history Social History Smoking Status: Former Smoker Smokeless Tobacco Use: No Alcohol Use: none Drug Use: none Marital Status: Housing status: lives with family Occupational Status: retired Immunizations History of Influenza Vaccine: Unknown History of Tetanus Vaccine?: Unknown History of Pneumococcal: Unknown History of Hepatitis B Vaccine: Unknown Allergies Coded Allergies: No Known Allergies (Unverified , 09/14/17) Home Medications Scheduled Aspirin (Aspirin Ec), 81 MG PO DAILY Atorvastatin (Lipitor), 40 MG PO HS Carbidopa/Levodopa (Sinemet 25MG/250MG), 1 TAB PO QID Cholecalciferol (Vitamin D), 1,000 INTER.UNIT PO DAILY Cyanocobalamin (Vitamin B-12), 500 MCG PO DAILY Digoxin (Digitek), 0.125 MG PO DAILY Duloxetine HCl (Cymbalta), 60 MG PO DAILY Furosemide (Lasix), 40 MG PO UD Iron-Vitamin C (Vitron-C), 1 TAB PO DAILY Isosorbide Mononitrate Ext Rel (Imdur Ext Rel), 60 MG PO QAM Metoprolol Succ (Toprol Xl) (Toprol-Xl ), 150 MG PO DAILY Pantoprazole (Protonix), 40 MG PO BID Potassium Ext Rel (Klor-Con), 20 MEQ PO UD Rasagiline (Azilect), 0.5 MG PO DAILY Rivaroxaban (Xarelto), 15 MG PO DAILY Valsartan (Diovan), 80 MG PO DAILY Scheduled PRN Nitroglycerin (Nitrostat), 0.4 MG UT PRN PRN for Chest Pain Review of Systems The patient denies chest pain, palpitations, shortness of breath, dyspnea on exertion, cough, sore throat, fevers, chills, sweats, weight change, fatigue, nausea, vomiting, diarrhea , constipation, abdominal pain, pelvic pain, blood in urine or stool, dysuria, urinary frequency or urgency, lightheadedness , dizziness, headache, loss of consciousness, imbalance, focal or generalized weakness, numbness or tingling in arms or left leg, generalized arthralgias or myalgias, back or neck pain, or night sweats. The review of systems is otherwise negative other than for that already noted above, and at least 10 systems have been reviewed. Physical Exam Vital Signs Date Time Temp Pulse Resp B/P (MAP) Pulse Ox O2 Delivery O2 Flow Rate FiO2 09/14/17 20:30 99 Room Air 09/14/17 20:15 68 136/76 83 140/58 69 123/68 09/14/17 18:50 68 18 147/66 99 Room Air 09/14/17 17:50 Room Air 09/14/17 17:21 66 09/14/17 16:51 36.3 56 18 102/61 96 Room Air The patient is awake, alert and oriented 1, normocephalic and atraumatic, lying in bed and in no acute distress. HEENT--PERRL, EOMI, mucous membranes and oropharynx normal. Neck--supple. No JVD. No bruits. Thyroid normal, trachea midline, no adenopathy. Heart--normal S1 and S2. No murmurs, rubs or gallops. Lungs--clear bilaterally, no respiratory distress, no accessory muscle use. Abdomen--normal bowel sounds and soft. Nontender. Nondistended, no hernias or masses, no organomegaly. Extremities/dermatologic--left lower extremity no cyanosis, clubbing or edema. Right lower extremity second toe with swelling, redness and discharge medially, with erythema along the dorsum of foot. Neurologic--cranial nerves II through XII grossly intact. Rheumatologic--normal range of motion. Psychiatric--normal affect. Diagnostics Laboratory Results Results Past 24 Hours Test 09/14/17 17:55 09/14/17 19:45 Range/Units White Blood Count 5.31 4.8-10.8 K/uL Red Blood Count 4.05 4.7-6.1 M/uL Hemoglobin 12.8 14.0-18.0 g/dL Hematocrit 37.9 42-52 % Mean Corpuscular Volume 93.6 80-100 fL Mean Corpuscular Hemoglobin 31.6 25-34 pg Mean Corpuscular Hemoglobin Concent 33.8 32-36 g/dl Platelet Count 142 130-400 K/uL Mean Platelet Volume 10.9 7.4-10.4 fL Neutrophils (%) (Auto) 62.4 % Lymphocytes (%) (Auto) 23.9 % Monocytes (%) (Auto) 10.7 % Eosinophils (%) (Auto) 2.6 % Basophils (%) (Auto) 0.2 % Neutrophils # (Auto) 3.31 1.4-6.5 K/uL Lymphocytes # (Auto) 1.27 1.2-3.4 K/uL Monocytes # (Auto) 0.57 0.11-0.59 K/uL Eosinophils # (Auto) 0.14 0-0.5 K/uL Basophils # (Auto) 0.01 0-0.2 K/uL RDW Standard Deviation 44.6 36.4-46.3 fL RDW Coefficient of Variation 13.0 11.5-14.5 % Immature Granulocyte % (Auto) 0.2 % Immature Granulocyte # (Auto) 0.01 0.00-0.02 K/uL Sodium Level 139 136-145 mmol/L Potassium Level 3.7 3.5-5.1 mmol/L Chloride Level 103 98-107 mmol/L Carbon Dioxide Level 32 21-32 mmol/L Anion Gap 4.0 3-11 mmol/L Blood Urea Nitrogen 16 7-18 mg/dl Creatinine 1.11 0.60-1.40 mg/dl Est Creatinine Clear Calc Drug Dose 52.8 ml/min Estimated GFR () 70.8 Estimated GFR (Non- 61.1 BUN/Creatinine Ratio 14.1 10-20 Random Glucose 80 70-99 mg/dl Calcium Level 8.3 8.5-10.1 mg/dl Total Bilirubin 0.6 0.2-1 mg/dl Direct Bilirubin 0.2 0-0.2 mg/dl Aspartate Amino Transf (AST/SGOT) 19 15-37 U/L Alanine Aminotransferase (ALT/SGPT) 12 12-78 U/L Alkaline Phosphatase 62 45-117 U/L Total Creatine Kinase 70 39-308 U/L Creatine Kinase MB 1.3 0.5-3.6 ng/ml Creatine Kinase MB Ratio 1.9 0-3.0 Troponin I 0.016 0-0.045 ng/ml Total Protein 6.8 6.4-8.2 gm/dl Albumin 3.2 3.4-5.0 gm/dl Thyroid Stimulating Hormone (TSH) 1.280 0.300-4.500 uIu/ml Urine Color DK YELLOW Urine Appearance CLEAR CLEAR Urine pH 5.0 4.5-7.5 Urine Specific Rhododendron 1.020 1.000-1.030 Urine Protein NEG NEG Urine Glucose (UA) NEG NEG Urine Ketones TRACE NEG Urine Occult Blood NEG NEG Urine Nitrite NEG NEG Urine Bilirubin NEG NEG Urine Urobilinogen NEG NEG Urine Leukocyte Esterase NEG NEG Microbiology Results 09/14/17 Blood Culture, Received Pending 09/14/17 Blood Culture, Received Pending Diagnostic Radiology Patient Name: LEDY SCOTT Unit Number: [id number] Dictated: 09/14/171934 Transcribed: 09/14/171934 EV Printed Date/Time: [~ rep prt dt]/[~ rep prt tm] [~ rep ct labl] - [~ rep ct ivnm] [facility] [place] [address] Dictated: 09/14/171934 Transcribed: 09/14/171934 EV Printed Date/Time: [~ rep prt dt]/[~ rep prt tm] [~ rep ct labl] - [~ rep ct ivnm] [~ rep ct add3]] RIGHT FOOT 3 VIEWS; RIGHT SECOND TOE 3 VIEWS CLINICAL HISTORY: Right foot pain. Second toe infection. FINDINGS: 3 views of the right foot with 3 additional views of the right second toe are obtained. Correlation is made with radiographs of the right second toe dated 08/08/[address] scan of the right foot dated 08/25/2017. The skeletal structures are osteopenic. No fracture is seen. No periostitis is identified. Bony erosion is suggested along the medial aspect of the base of the second middle phalanx. No additional foci of erosive change are identified. There is a mild hallux valgus, with moderate arthritic change at the first metatarsophalangeal joint. Mild osteoarthritic change is seen involving the interphalangeal joints. Soft tissue swelling is present in the second toe. No radiodense foreign body is identified. No subcutaneous gas is seen. IMPRESSION: 1. There is no radiographic evidence of acute fracture. 2. There is bony erosion seen involving the medial base of the second middle phalanx. This is new from prior examinations and is concerning for osteomyelitis. Clinical correlation will be required. 3. Osteopenia, hallux valgus, and arthritic change as above. Electronically signed by: Matthias Parsons M.D. 09/14/2017 7:40 PM Dictated Date/Time: 09/14/2017 7:35 PM The status of this report is Signed. Draft = Not yet reviewed or approved by Radiologist. Signed = Reviewed and approved by Radiologist. <AttendingPhy></AttendingPhy> <FamilyPhy>August Gusman M.D.</FamilyPhy > <PrimaryPhy>August Gusman M.D.</PrimaryPhy> <UnitNumber>[id number]</ UnitNumber> <VisitNumber>[id number]</VisitNumber> <PatientName>LEDY SCOTT </PatientName> <DateOfBirth>1935</DateOfBirth> <Location>[facility]</Location> <ServiceDate>09/14/17</ServiceDate> <MNE>ESINDI</MNE> <OrderingPhy>Sylvain Onofre MD</OrderingPhy> <OrderingPhyMNE>f rep ord dr delgado</OrderingPhyMNE> < DictatingPhyMNE>f rep dict dr delgado</DictatingPhyMNE> <CCListMNE>f rep ct mne</ CCListMNE> <AdmittingPhyMNE>f pt admit dr delgado</AdmittingPhyMNE> <AttendingPhyMNE >f pt attend dr delgado</AttendingPhyMNE> <ConsultingPhyMNE>f pt consult dr delgado</ConsultingPhyMNE> <FamilyPhyMNE>f pt fam dr delgado</FamilyPhyMNE> <OtherPhyMNE>f pt other dr delgado</OtherPhyMNE> < PrimaryPhyMNE>f pt prim care dr delgado</PrimaryPhyMNE> <ReferringPhyMNE>f pt referring dr delgado</ReferringPhyMNE> Patient Name: LEDY SCOTT Unit Number: [id number] Dictated: 09/14/171817 Transcribed: 09/14/171817 EV Printed Date/Time: [~ rep prt dt]/[~ rep prt tm] [~ rep ct labl] - [~ rep ct ivnm] [facility] Radiology Department [place], [place] [id number] Dictated: 09/14/171817 Transcribed: 09/14/171817 EV Printed Date/Time: [~ rep prt dt]/[~ rep prt tm] [~ rep ct labl] - [~ rep ct ivnm] [~ rep ct add3]] CT SCAN OF THE BRAIN WITHOUT IV CONTRAST CLINICAL HISTORY: Change in mental status. COMPARISON STUDY: CT of the brain dated 02/02/2016. TECHNIQUE: Unenhanced axial CT scan of the brain is performed from the vertex to the skull base. A dose lowering technique was utilized adhering to the principles of ALARA. CT DOSE: 614.27 mGy.cm FINDINGS: Brain parenchyma: There are age-related involutional changes noting mild subcortical and periventricular microangiopathic change. There is no hemorrhage, mass effect, or evidence of acute territorial ischemia by CT criteria. Dunn-white matter is preserved. No extra-axial fluid collection is seen. Ventricles, sulci, cisterns: Prominent secondary to involutional change. Intracranial vasculature: There is atherosclerotic calcification of the cavernous carotid and vertebral arteries. Calvarium: Unremarkable. Sinuses and mastoids: The visualized paranasal sinuses are clear. The mastoid air cells are well pneumatized. Orbits: The bony orbits are grossly intact. IMPRESSION: There is no hemorrhage, mass effect, or evidence of acute territorial ischemia by CT criteria. Electronically signed by: Matthias Parsons M.D. 09/14/2017 6:20 PM Dictated Date/Time: 09/14/2017 6:18 PM The status of this report is Signed. Draft = Not yet reviewed or approved by Radiologist. Signed = Reviewed and approved by Radiologist. <AttendingPhy></AttendingPhy> <FamilyPhy>August Gusman M.D.</FamilyPhy > <PrimaryPhy>August Gusman M.D.</PrimaryPhy> <UnitNumber>[id number]</ UnitNumber> <VisitNumber>[id number]</VisitNumber> <PatientName>LEDY SCOTT </PatientName> <DateOfBirth>1935</DateOfBirth> <Location>[facility]</Location> <ServiceDate>09/14/17</ServiceDate> <MNE>ESINDI</MNE> <OrderingPhy>Sylvain Onofre MD</OrderingPhy> <OrderingPhyMNE>f rep ord dr delgado</OrderingPhyMNE> < DictatingPhyMNE>f rep dict dr delgado</DictatingPhyMNE> <CCListMNE>f rep ct danny</ CCListMNE> <AdmittingPhyMNE>f pt admit dr delgado</AdmittingPhyMNE> <AttendingPhyMNE >f pt attend dr delgado</AttendingPhyMNE> <ConsultingPhyMNE>f pt consult dr delgado</ConsultingPhyMNE> <FamilyPhyMNE>f pt fam dr delgado</FamilyPhyMNE> <OtherPhyMNE>f pt other dr delgado</OtherPhyMNE> < PrimaryPhyMNE>f pt prim care dr delgado</PrimaryPhyMNE> <ReferringPhyMNE>f pt referring dr delgado</ReferringPhyMNE> Patient Name: LEDY SCOTT Unit Number: [id number] Dictated: 09/14/171917 Transcribed: 09/14/171917 EV Printed Date/Time: [~ rep prt dt]/[~ rep prt tm] [~ rep ct labl] - [~ rep ct ivnm] [facility] [place] [address] Dictated: 09/14/171917 Transcribed: 09/14/171917 EV Printed Date/Time: [~ rep prt dt]/[~ rep prt tm] [~ rep ct labl] - [~ rep ct ivnm] [~ rep ct add3]] SINGLE VIEW CHEST CLINICAL HISTORY: Generalized weakness. FINDINGS: An AP, portable, upright chest radiograph is compared to study dated 02/02/2016. The examination is degraded by portable technique and patient rotation. A 3-lead cardiac AICD is unchanged in position and largely obscures the left mid chest. The heart is enlarged and there is atherosclerotic calcification of the thoracic aorta. The pulmonary vasculature is noncongested. Chronic interstitial thickening is similar to previous. No airspace consolidation or large pleural effusion is identified. No pneumothorax is seen. The skeletal structures are osteopenic. The bony thorax is grossly intact. IMPRESSION: 1. Cardiomegaly and AICD. There is no radiographic evidence of congestive failure. 2. No airspace consolidation or large pleural effusion is seen. Electronically signed by: Matthias Parsons M.D. 09/14/2017 7:19 PM Dictated Date/Time: 09/14/2017 7:18 PM The status of this report is Signed. Draft = Not yet reviewed or approved by Radiologist. Signed = Reviewed and approved by Radiologist. <AttendingPhy></AttendingPhy> <FamilyPhy>August Gusman M.D.</FamilyPhy > <PrimaryPhy>August Gusman M.D.</PrimaryPhy> <UnitNumber>[id number]</ UnitNumber> <VisitNumber>[id number]</VisitNumber> <PatientName>LEDY SCOTT </PatientName> <DateOfBirth>1935</DateOfBirth> <Location>[facility]</Location> <ServiceDate>09/14/17</ServiceDate> <MNE>ESINDI</MNE> <OrderingPhy>Sylvain Onofre MD</OrderingPhy> <OrderingPhyMNE>f rep ord dr delgado</OrderingPhyMNE> < DictatingPhyMNE>f rep dict dr delgado</DictatingPhyMNE> <CCListMNE>f rep ct mne</ CCListMNE> <AdmittingPhyMNE>f pt admit dr delgado</AdmittingPhyMNE> <AttendingPhyMNE >f pt attend dr delgado</AttendingPhyMNE> <ConsultingPhyMNE>f pt consult dr delgado</ConsultingPhyMNE> <FamilyPhyMNE>f pt fam dr delgado</FamilyPhyMNE> <OtherPhyMNE>f pt other dr delgado</OtherPhyMNE> < PrimaryPhyMNE>f pt prim care dr delgado</PrimaryPhyMNE> <ReferringPhyMNE>f pt referring dr delgado</ReferringPhyMNE> Patient Name: LEDY SCOTT Unit Number: [id number] Dictated: 09/14/172022 Transcribed: 09/14/172022 EV Printed Date/Time: [~ rep prt dt]/[~ rep prt tm] [~ rep ct labl] - [~ rep ct ivnm] [facility] [place] [address] Dictated: 09/14/172022 Transcribed: 09/14/172022 EV Printed Date/Time: [~ rep prt dt]/[~ rep prt tm] [~ rep ct labl] - [~ rep ct ivnm] ULTRASOUND RIGHT LOWER EXTREMITY VENOUS CLINICAL HISTORY: Right leg erythema and infection. COMPARISON STUDY: Right lower extremity venous ultrasound dated 04/16/2013. TECHNIQUE: Real-time, grayscale, and color Doppler sonography of the deep veins of the right lower extremity was performed from the inguinal crease to the calf. Compression and augmentation were utilized. FINDINGS: There is no sonographic evidence of deep venous thrombosis identified in the right lower extremity. The common femoral, superficial femoral, and popliteal veins are patent and normally compressible. The greater saphenous vein and the profunda femoris vein at the junction with the common femoral vein are clear. The visualized calf veins are patent. IMPRESSION: There is no sonographic evidence of deep venous thrombosis identified in the right lower extremity. Electronically signed by: Matthias Parsons M.D. 09/14/2017 8:23 PM Dictated Date/Time: 09/14/2017 8:23 PM The status of this report is Signed. Draft = Not yet reviewed or approved by Radiologist. Signed = Reviewed and approved by Radiologist. <AttendingPhy></AttendingPhy> <FamilyPhy>August Gusman M.D.</FamilyPhy > <PrimaryPhy>August Gusman M.D.</PrimaryPhy> <UnitNumber>[id number]</ UnitNumber> <VisitNumber>[id number]</VisitNumber> <PatientName>LEDY SCOTT </PatientName> <DateOfBirth>1935</DateOfBirth> <Location>[facility]</Location> <ServiceDate>09/14/17</ServiceDate> <MNE>ESINDI</MNE> <OrderingPhy>Sylvain Onofre MD</OrderingPhy> <OrderingPhyMNE>f rep ord dr delgado</OrderingPhyMNE> < DictatingPhyMNE>f rep dict dr delgado</DictatingPhyMNE> <CCListMNE>f rep ct mne</ CCListMNE> <AdmittingPhyMNE>f pt admit dr delgado</AdmittingPhyMNE> <AttendingPhyMNE >f pt attend dr delgado</AttendingPhyMNE> <ConsultingPhyMNE>f pt consult dr delgado</ConsultingPhyMNE> <FamilyPhyMNE>f pt fam dr delgado</FamilyPhyMNE> <OtherPhyMNE>f pt other dr delgado</OtherPhyMNE> < PrimaryPhyMNE>f pt prim care dr delgado</PrimaryPhyMNE> <ReferringPhyMNE>f pt referring dr delgado</ReferringPhyMNE> EKG LEDY SCOTT ID:[id number] 14-SEP-2017 17:50:02 [facility] Atrial-sensed ventricular-paced rhythm Biventricular pacemaker detected Abnormal ECG When compared with ECG of 04-FEB-2016 07:16, Premature ventricular complexes are no longer Present Vent. rate has decreased BY 36 BPM 25mm/s 10mm/mV 150Hz 8.0 SP2 12SL 241 PRATEEK: 15 Referred by: Referred Self Unconfirmed Vent. rate 61 BPM NM interval 124 ms QRS duration 158 ms QT/QTc 480/483 ms P-R-T axes 57 -28 83 1935 (82 yr) Male 100in 1lb Room: Loc:15 [employer] Cast Supervisor:MICHELLE STEEN Impression Assessment and Plan Right second toe osteomyelitis/right foot cellulitis-- Admit to nonmonitored bed. Vancomycin IV per pharmacokinetic monitoring. Zosyn 3.375 mg IV every 8 hours. Wound culture and sensitivity. Order lower extremity arterial Doppler. Consult infectious disease. PICC line placement. Atrial fibrillation/hypertension/CHF-- Continue aspirin 81 mg daily, digoxin 0.125 mg p.o. daily, Imdur extended release 60 mg every morning, metoprolol succinate 150 mg p.o. daily, valsartan 80 mg p.o. daily and Xarelto 15 mg p.o. daily. Hold furosemide and potassium. Parkinson's-- Continue carbidopa/levodopa 25/250 1 tablet p.o. 4 times daily and Azilect 0.5 mg p.o. daily. Hyperlipidemia-- Continue atorvastatin 40 mg at bedtime. Vitamin B12 deficiency-- Continue cyanocobalamin 500 mcg p.o. daily. Anxiety with depression-- Continue duloxetine 60 mg p.o. daily. GERD-- Continue pantoprazole 40 mg p.o. twice daily. Advanced Directives Existing Living Will: Yes Existing Power of Neurology Physician Assistant: Yes Resuscitation Status VTE Prophylaxis Will order VTE Prophylaxis: Yes
[2017-09-15] MEDS ORDERED: PIPERACILL/TAZOBAC IV 3.375 GM in D5W 100 ML IV ONE ×2
[2017-09-15] MEDS ORDERED: PIPERACILL/TAZOBAC IV 3.375 GM in DEXTROSE 5% 100ML 100 ML IV SCH (06:00)
[2017-09-15] MEDS: PIPERACILL/TAZOBAC IV 3.375 GM in D5W 100ML IV SCH ×3 (06:33→21:36)
[2017-09-15 06:50] VITALS: BP 155/74; PULSE 61; TEMP 36.6; O2SAT 100
[2017-09-15] MEDS: DULOXETINE HCL 60 MG CAP PO SCH (08:01)
[2017-09-15] MEDS: METOPROLOL SUCC 50MG EXT REL TAB PO SCH (08:02)
[2017-09-15] MEDS: ASPIRIN 81 MG ECTAB PO SCH (08:02)
[2017-09-15] MEDS: CHOLECALCIFEROL 1000 INTER.UNIT TAB PO SCH (08:02)
[2017-09-15] MEDS: ISOSORBIDE MONONITRATE 60 MG TABCR PO SCH (08:02)
[2017-09-15] MEDS: DIGOXIN 0.125 MG TAB PO SCH (08:02)
[2017-09-15] MEDS: VALSARTAN 80 MG TAB PO SCH (08:02)
[2017-09-15] MEDS: CYANOCOBALAMIN 500 MCG TAB (VIT B-12) PO SCH (08:02)
[2017-09-15] MEDS: PANTOprazole SOD 40 MG TAB PO SCH ×2 (08:02→21:02)
[2017-09-15] MEDS: RIVAROXABAN TAB 15 MG TAB PO SCH (08:02)
[2017-09-15] MEDS: CARBIDOPA/LEVODOPA 25-250 1 EA TAB PO SCH ×4 (08:02→21:02)
[2017-09-15] MEDS ORDERED: VANCOMYCIN IV 1,250 MG in SODIUM CHLORIDE 0.9% 250ML 250 ML IV ONE (08:30)
[2017-09-15] MEDS ORDERED: NON-FORMULARY MEDICATION (Iron-Vitamin C (Vitron-C) 1 TAB) PO SCH (09:00)
[2017-09-15] MEDS ORDERED: VANCOMYCIN IV 1,000 MG in SODIUM CHLORIDE 0.9% 250ML 250 ML IV SCH (09:00)
--- NOTE | 2017-09-15 10:37 | DIAGNOSTIC IMAGING REPORT ---
ART DOP LOWER EXT BILAT CLINICAL HISTORY: right 2nd toe osteo atherosclerosis COMPARISON STUDY: None FINDINGS: Real-time as well as Doppler evaluation of the arterial structures of the lower legs was performed. Waveforms are triphasic throughout. Velocity characteristics are unremarkable. Mild plaque formation throughout both legs The following blood pressure indices were obtained. On the right, posterior tibial is 1.15 and dorsalis pedis is 1.10. On the left, posterior tibial is 1.28 and dorsalis pedis is 1.31. IMPRESSION: Normal study. Mild scattered plaque formation bilaterally The above report was generated using voice recognition software. It may contain grammatical, syntax or spelling errors. Electronically signed by: Eric Lee M.D. 09/15/2017 10:36 AM Dictated Date/Time: 09/15/2017 10:35 AM
--- NOTE | 2017-09-15 11:36 | INFECT. DISEASE CONSULTATION ---
DATE OF CONSULTATION: 09/15/2017 HISTORY OF PRESENT ILLNESS: This is an 82-year-old gentleman who was admitted to the hospital yesterday after he had worsening redness of his right second toe over the past several days. He was last seen by the wound center on 08/23/2017. Per that note, he was to have followup within a week but has not had any return followup. At that time, a culture was performed from the toe and grew Morganella, which was resistant to Augmentin only. Per previous wound care center notes, he was on Augmentin previously but had stopped at that visit. For that reason, a wound culture was obtained, but the patient has not had any followup, and I do not believe he was on any antibiotics. I am unable to obtain any review of systems from the patient. He was placed on vancomycin and Zosyn upon admission. There is no surgical evaluation pending. His white blood cell count is normal. His UA is negative. Blood cultures are pending. An x-ray of the toe did confirm erosion consistent with osteo. Per wound care center notes, previous x-rays were negative. He denies any pain in the foot currently. He denies any fevers or chills. He denies any chest pain, cough, shortness of breath, nausea, vomiting, or diarrhea. REVIEW OF SYSTEMS: His remaining review of systems reviewed and unremarkable. PAST MEDICAL HISTORY: Significant for diverticular abscess, congestive heart failure, ischemic cardiomyopathy, right foot osteomyelitis. PAST SURGICAL HISTORY: Unremarkable. FAMILY HISTORY: Noncontributory. SOCIAL HISTORY: Significant for history of tobacco use. He denies any drug or alcohol use. ALLERGIES: He has no known drug allergies. MEDICATIONS: Vancomycin, Lipitor, aspirin, Sinemet, vitamin D, vitamin B12, digoxin, Cymbalta, Imdur, Topral XL, Protonix, Diovan, Zosyn, Tylenol. PHYSICAL EXAMINATION: VITAL SIGNS: He is afebrile, pulse 61, respiratory rate 18, blood pressure 155/74, oxygen saturation is 100% on room air. GENERAL: He is awake and oriented to self, and he is in no acute distress. HEENT: Mucous membranes are dry. Extraocular muscles are intact. CARDIOVASCULAR: Heart is regular. RESPIRATORY: Lungs are clear. GASTROINTESTINAL: Abdomen is soft. EXTREMITIES: There is no edema. LABORATORY DATA: CBC: White blood cell count 5.3, hemoglobin 12.8, platelets 142. Chemistry panel: Sodium 139, potassium 3.7, chloride 103, bicarbonate 32, BUN 16, creatinine 1.1, glucose is 80. UA is negative. Blood cultures are pending. IMAGING: Ultrasound is unremarkable. X-ray of the toe is consistent with osteomyelitis. ASSESSMENT AND PLAN: Osteomyelitis of the right second toe, with a history of recent Morganella, which I do not believe was treated. I would suggest placing patient on Cipro 500 mg twice daily if no surgical intervention is to be performed during this admission. Certainly he can follow at the wound care center. I would give a minimum of 4 weeks with anticipation of following in the wound care center. Thank you for this consultation.
--- NOTE | 2017-09-15 11:39 | Progress Note ---
Progress Note Date of Service Sep 15, 2017. Progress Note ID Consult Dictated #[id number] A/P: 1. Right toe osteo - culture with morganella -Suggest change to po levaquin 500mg daily x 4 weeks -Will need continue followup in wound center post d/c -thank you
--- NOTE | 2017-09-15 11:45 | Pharmacy Progress Note ---
Pharmacy Abx Initial Consult Date of Service Sep 15, 2017. Pharmacy Dosing Scope Date of Consult: 09/14/17 Consultation requested by: Dr. Griffiths Pharmacy is consulted to initiate Vancomycin and Zosyn IV dosing therapy, order appropriate labs and adjust drug dose/frequency. Subjective The patient is a 82 year old male admitted on Sep 14, 2017 at 22:19. Objective Height (Feet): 5 Height (Inches): 11.00 Weight (Kilograms): 74.000 Vital Signs (Past 12Hrs) Vital Signs Past 12 Hours Date Time Temp Pulse Resp B/P (MAP) Pulse Ox O2 Delivery O2 Flow Rate FiO2 09/15/17 08:02 61 09/15/17 08:00 Room Air 09/15/17 06:50 36.6 61 18 155/74 (101) 100 Room Air Lab Results (24Hrs) Laboratory Tests (24 Hours) Test 09/14/17 17:55 White Blood Count 5.31 K/uL (4.8-10.8) Red Blood Count 4.05 M/uL (4.7-6.1) L Hemoglobin 12.8 g/dL (14.0-18.0) L Hematocrit 37.9 % (42-52) L Mean Corpuscular Volume 93.6 fL (80-100) Mean Corpuscular Hemoglobin 31.6 pg (25-34) Mean Corpuscular Hemoglobin Concent 33.8 g/dl (32-36) Platelet Count 142 K/uL (130-400) Mean Platelet Volume 10.9 fL (7.4-10.4) H Neutrophils (%) (Auto) 62.4 % Lymphocytes (%) (Auto) 23.9 % Monocytes (%) (Auto) 10.7 % Eosinophils (%) (Auto) 2.6 % Basophils (%) (Auto) 0.2 % Neutrophils # (Auto) 3.31 K/uL (1.4-6.5) Lymphocytes # (Auto) 1.27 K/uL (1.2-3.4) Monocytes # (Auto) 0.57 K/uL (0.11-0.59) Eosinophils # (Auto) 0.14 K/uL (0-0.5) Basophils # (Auto) 0.01 K/uL (0-0.2) Total Creatine Kinase 70 U/L (39-308) Micro Results Date/Time Source Procedure Growth Status 09/14/17 18:35 Blood Blood Culture Pending Received 09/14/17 17:55 Blood Blood Culture Pending Received Risk Factors for Resistance Assessment & Plan Assessment 82 year old male presenting to ED with complaint of worsening infection, redness and swelling in his right second toe over the last 3 days. Suspected osteomyelitis. He has been followed by [facility] and has an appointment September 19. Patient's son reports that he seems more confused and is having hallucinations. Blood cultures currently pending. ID is consulted on this case. Plan Vancomycin and Zosyn for treatment of Osteomyelitis of Right Toe Vancomycin IV * Loading dose: 1000 mg in ED (13.5 mg/kg) * Maintenance dose: 1250 mg IV (17 mg/kg) every 16 hours * Estimated Pharmacokinetics: ke=0.048, t1/2=14.5 hours * Goal trough level for Osteomyelitis : 15 to 20 mcg/mL * Trough level ordered for 09/16/17 at 1530 Piperacillin/tazobactam * 3.375 g bolus administered over 30 minutes, then 3.375 g IV extended infusion every 8 hours for CrCl greater than 20 mL/min Pharmacy will continue to follow and will adjust dose/frequency as necessary. Thank you.
[2017-09-15 14:42] VITALS: Ht 180.3 cm; Wt 75.5 kg
--- NOTE | 2017-09-15 15:40 | Progress Note ---
Subjective Date of Service: Sep 15, 2017. Subjective Pt evaluation today including: conversation w/ patient, conversation w/ family (son), physical exam, lab review, conversation w/ ergonomics consultant, review of inpatient medication list Pain: mild pain in right 2nd toe PO Intake: adequate Voiding: no voiding problems patient feeling fine, says that pain in toe not causing him any grief he has not been compliant with medications at home living alone because his is in [facility] per patient's son, he is trying to get him to go to [facility] as well, cannot care for him anymore patient does not take medications, cannot complete ADL's office of aging was involved at the home recently, actually recommended he come to the hospital discussed with Dr. Felder, recommends Cipro 400mg BID based on culture as outpatient that grew [place] Problem List Medical Problems: (1) Acute chest pain Status: Acute (2) RLQ abdominal pain Status: Acute Review of Systems Musculoskeletal: + joint pain (right second toe, PIP join) Skin: + problem reported Objective Vital Signs Date Time Temp Pulse Resp B/P (MAP) Pulse Ox O2 Delivery O2 Flow Rate FiO2 09/15/17 08:02 61 09/15/17 08:00 Room Air 09/15/17 06:50 36.6 61 18 155/74 (101) 100 Room Air 09/14/17 22:45 69 20 131/60 99 09/14/17 22:00 63 16 139/55 100 Room Air 09/14/17 20:30 99 Room Air 09/14/17 20:15 68 136/76 83 140/58 69 123/68 09/14/17 18:50 68 18 147/66 99 Room Air 09/14/17 17:50 Room Air 09/14/17 17:21 66 09/14/17 16:51 36.3 56 18 102/61 96 Room Air Physical Exam General Appearance: WD/WN, no apparent distress Eyes: normal inspection, EOMI, sclerae normal ENT: normal ENT inspection, hearing grossly normal, pharynx normal Neck: supple, no adenopathy, no JVD, trachea midline Respiratory/Chest: chest non-tender, lungs clear, normal breath sounds, no respiratory distress, no accessory muscle use Cardiovascular: regular rate, rhythm, no edema, no gallop, no JVD, no murmur Abdomen: normal bowel sounds, non tender, soft, no organomegaly Extremities: normal range of motion, non-tender, normal inspection, no pedal edema, no calf tenderness, pelvis stable Neurologic/Psychiatric: r d internship II-XII nml as tested, + abnormal gait, + motor weakness, + depressed affect, + disoriented Skin: + pertinent finding (erythema, opening medial surface of 2nd right toe, clear drainage, foul odor) Laboratory Results Last 24 Hours Test 09/14/17 17:55 09/14/17 19:45 White Blood Count 5.31 K/uL Red Blood Count 4.05 M/uL Hemoglobin 12.8 g/dL Hematocrit 37.9 % Mean Corpuscular Volume 93.6 fL Mean Corpuscular Hemoglobin 31.6 pg Mean Corpuscular Hemoglobin Concent 33.8 g/dl Platelet Count 142 K/uL Mean Platelet Volume 10.9 fL Neutrophils (%) (Auto) 62.4 % Lymphocytes (%) (Auto) 23.9 % Monocytes (%) (Auto) 10.7 % Eosinophils (%) (Auto) 2.6 % Basophils (%) (Auto) 0.2 % Neutrophils # (Auto) 3.31 K/uL Lymphocytes # (Auto) 1.27 K/uL Monocytes # (Auto) 0.57 K/uL Eosinophils # (Auto) 0.14 K/uL Basophils # (Auto) 0.01 K/uL RDW Standard Deviation 44.6 fL RDW Coefficient of Variation 13.0 % Immature Granulocyte % (Auto) 0.2 % Immature Granulocyte # (Auto) 0.01 K/uL Sodium Level 139 mmol/L Potassium Level 3.7 mmol/L Chloride Level 103 mmol/L Carbon Dioxide Level 32 mmol/L Anion Gap 4.0 mmol/L Blood Urea Nitrogen 16 mg/dl Creatinine 1.11 mg/dl Est Creatinine Clear Calc Drug Dose 52.8 ml/min Estimated GFR () 70.8 Estimated GFR (Non- 61.1 BUN/Creatinine Ratio 14.1 Random Glucose 80 mg/dl Calcium Level 8.3 mg/dl Total Bilirubin 0.6 mg/dl Direct Bilirubin 0.2 mg/dl Aspartate Amino Transf (AST/SGOT) 19 U/L Alanine Aminotransferase (ALT/SGPT) 12 U/L Alkaline Phosphatase 62 U/L Total Creatine Kinase 70 U/L Creatine Kinase MB 1.3 ng/ml Creatine Kinase MB Ratio 1.9 Troponin I 0.016 ng/ml Total Protein 6.8 gm/dl Albumin 3.2 gm/dl Thyroid Stimulating Hormone (TSH) 1.280 uIu/ml Urine Color DK YELLOW Urine Appearance CLEAR Urine pH 5.0 Urine Specific [place] 1.020 Urine Protein NEG Urine Glucose (UA) NEG Urine Ketones TRACE Urine Occult Blood NEG Urine Nitrite NEG Urine Bilirubin NEG Urine Urobilinogen NEG Urine Leukocyte Esterase NEG Assessment and Plan Right second toe osteomyelitis/right foot cellulitis-- change to Cipro 500mg BID for 4 weeks wound care evaluated, asked for ortho consult, will place routine consult today patient without any severe pain Atrial fibrillation/hypertension/CHF-- Continue aspirin 81 mg daily, digoxin 0.125 mg p.o. daily, Imdur extended release 60 mg every morning, metoprolol succinate 150 mg p.o. daily, valsartan 80 mg p.o. daily and Xarelto 15 mg p.o. daily. resume Lasix and potassium tomorrow Parkinson's-- Continue carbidopa/levodopa 25/250 1 tablet p.o. 4 times daily and Azilect 0.5 mg p.o. daily. Hyperlipidemia-- Continue atorvastatin 40 mg at bedtime. Vitamin B12 deficiency-- Continue cyanocobalamin 500 mcg p.o. daily. Anxiety with depression-- Continue duloxetine 60 mg p.o. daily. GERD-- Continue pantoprazole 40 mg p.o. twice daily Disposition: patient confused, cannot take care of himself at home CM working on [place] next week will see if orthopedics feels he need debridement
[2017-09-15 16:16] VITALS: BP 111/57; PULSE 60; TEMP 36; O2SAT 97
[2017-09-15] MEDS ORDERED: HALOPERIDOL LACTATE 5 MG/ML 1 ML VIAL ONE (19:00)
[2017-09-15] MEDS ORDERED: LORAZEPAM INJ 1 MG in SYRINGE 0.5 ML IV PRN (19:00)
[2017-09-15] MEDS: ATORVASTATIN 40 MG TAB PO SCH (21:01)
[2017-09-16] VITALS: O2SAT 97
[2017-09-16] MEDS ORDERED: VANCOMYCIN IV 1,250 MG in SODIUM CHLORIDE 0.9% 250ML 250 ML IV SCH ×2
[2017-09-16] MEDS: PIPERACILL/TAZOBAC IV 3.375 GM in D5W 100ML IV SCH (06:32)
[2017-09-16] MEDS: HALOPERIDOL LACTATE 5 MG/ML 1 ML VIAL IM PRN (08:08)
[2017-09-16] MEDS: DULOXETINE HCL 60 MG CAP PO SCH (08:13)
[2017-09-16] MEDS: ASPIRIN 81 MG ECTAB PO SCH (08:13)
[2017-09-16] MEDS: ISOSORBIDE MONONITRATE 60 MG TABCR PO SCH (08:13)
[2017-09-16] MEDS: DIGOXIN 0.125 MG TAB PO SCH (08:13)
[2017-09-16] MEDS: VALSARTAN 80 MG TAB PO SCH (08:13)
[2017-09-16] MEDS: CARBIDOPA/LEVODOPA 25-250 1 EA TAB PO SCH ×4 (08:14→20:47)
[2017-09-16] MEDS: METOPROLOL SUCC 50MG EXT REL TAB PO SCH (08:14)
[2017-09-16] MEDS: RIVAROXABAN TAB 15 MG TAB PO SCH (08:14)
[2017-09-16] MEDS: CYANOCOBALAMIN 500 MCG TAB (VIT B-12) PO SCH (08:14)
[2017-09-16] MEDS: CHOLECALCIFEROL 1000 INTER.UNIT TAB PO SCH (08:14)
[2017-09-16] MEDS: PANTOprazole SOD 40 MG TAB PO SCH ×2 (08:14→20:47)
[2017-09-16 08:29] LABS: CREATININE 0.86 mg/dl (0.60-1.40)
--- NOTE | 2017-09-16 09:42 | Orthopedic Consultation ---
Orthopedic Consultation Date of Consultation: Sep 16, 2017. Attending Physician: Jarrod Marshall D.O. Reason for Consultation: Right foot second digit osteomyelitis History of Present Illness The patient is an 82-year-old male who was seen secondary to worsening erythema overlying a right foot second digit toe ulcer which he has been treated for as an outpatient with most recent wound clinic note on 08/23/2017. The patient had failed to follow-up with wound care and subsequently developed worsening symptoms which prompted him to be seen at the emergency room and subsequent Wally admitted for further intervention and treatment. Patient was lethargic upon examination today but easily arousable. He reports seeing wound care clinic in August, followed up with a rn documentation specialist but does not recall name. Denies fevers chills, nausea vomiting diarrhea, shortness of breath chest pain,. Past Medical/Surgical History Medical Problems: (1) Acute chest pain Status: Acute (2) RLQ abdominal pain Status: Acute Family History No pertinent family history Social History Smoking Status: Former Smoker Smokeless Tobacco Use: No Alcohol Use: none Drug Use: none Marital Status: Housing Status: lives with family Occupation Status: retired Allergies Coded Allergies: No Known Allergies (Unverified , 09/14/17) Home Medications Scheduled Aspirin (Aspirin Ec), 81 MG PO DAILY Atorvastatin (Lipitor), 40 MG PO HS Carbidopa/Levodopa (Sinemet 25MG/250MG), 1 TAB PO QID Cholecalciferol (Vitamin D), 1,000 INTER.UNIT PO DAILY Cyanocobalamin (Vitamin B-12), 500 MCG PO DAILY Digoxin (Digitek), 0.125 MG PO DAILY Duloxetine HCl (Cymbalta), 60 MG PO DAILY Furosemide (Lasix), 40 MG PO UD Iron-Vitamin C (Vitron-C), 1 TAB PO DAILY Isosorbide Mononitrate Ext Rel (Imdur Ext Rel), 60 MG PO QAM Metoprolol Succ (Toprol Xl) (Toprol-Xl ), 150 MG PO DAILY Pantoprazole (Protonix), 40 MG PO BID Potassium Ext Rel (Klor-Con), 20 MEQ PO UD Rasagiline (Azilect), 0.5 MG PO DAILY Rivaroxaban (Xarelto), 15 MG PO DAILY Valsartan (Diovan), 80 MG PO DAILY Scheduled PRN Nitroglycerin (Nitrostat), 0.4 MG UT PRN PRN for Chest Pain Current Inpatient Medications Current Inpatient Medications Medications (Trade) Dose Ordered Sig/Remedios Route Start Time Stop Time Status Last Admin Dose Admin Acetaminophen (Tylenol Tab) 650 mg Q4H PRN PO 09/14/17 21:45 10/14/17 21:44 Aspirin (Ecotrin Tab) 81 mg DAILY PO 09/15/17 09:00 10/15/17 08:59 09/16/17 08:13 81 MG Atorvastatin Calcium (Lipitor Tab) 40 mg HS PO 09/15/17 21:00 10/15/17 20:59 09/15/17 21:01 40 MG Carbidopa/Levodopa (Sinemet 25/ 250MG Tab) 1 tab QID PO 09/15/17 09:00 10/15/17 08:59 09/16/17 08:14 1 TAB Cholecalciferol (Vitamin D Tab) 1,000 inter.unit DAILY PO 09/15/17 09:00 10/15/17 08:59 09/16/17 08:14 1,000 INTER.UNIT Cyanocobalamin (Vitamin B-12 Tab) 500 mcg DAILY PO 09/15/17 09:00 10/15/17 08:59 09/16/17 08:14 500 MCG Digoxin (Lanoxin Tab) 0.125 mg DAILY PO 09/15/17 09:00 10/15/17 08:59 09/16/17 08:13 0.125 MG Duloxetine HCl (Cymbalta Cap) 60 mg DAILY PO 09/15/17 09:00 10/15/17 08:59 09/16/17 08:13 60 MG Isosorbide Mononitrate (Imdur Ext Rel Tab) 60 mg QAM PO 09/15/17 09:00 10/15/17 08:59 09/16/17 08:13 60 MG Metoprolol Succinate (Toprol Xl Tab) 150 mg DAILY PO 09/15/17 09:00 10/15/17 08:59 09/16/17 08:14 150 MG Nitroglycerin (Nitrostat Tab) 0.4 mg PRN PRN UT 09/14/17 21:45 10/14/17 21:44 Pantoprazole Sodium (Protonix Tab) 40 mg BID PO 09/15/17 09:00 10/15/17 08:59 09/16/17 08:14 40 MG Rivaroxaban (Xarelto Tab) 15 mg DAILY PO 09/15/17 09:00 10/15/17 08:59 09/16/17 08:14 15 MG Valsartan (Diovan Tab) 80 mg DAILY PO 09/15/17 09:00 10/15/17 08:59 09/16/17 08:13 80 MG Miscellaneous Information (Order Awaiting Action) 1 ea QS N/A 09/15/17 00:00 10/15/17 00:00 Vancomycin HCl (Consult) 1 ea UD PRN N/A 09/14/17 22:30 10/14/17 22:29 Miscellaneous Information (Consult) 1 ea UD PRN N/A 09/14/17 22:30 10/14/17 22:29 Piperacillin Sod/ Tazobactam Sod 3.375 gm/Dextrose 115 ml @ 28.75 mls/ hr Q8 IV 09/15/17 06:00 10/27/17 05:59 09/16/17 06:32 28.75 MLS/HR Vancomycin HCl 1250 mg/Sodium Chloride 275 ml @ 125 mls/hr Q16H IV 09/16/17 00:00 10/28/17 00:00 09/16/17 00:52 125 MLS/HR Haloperidol Lactate (Haldol Inj) 5 mg Q6 PRN IM 09/15/17 19:00 10/15/17 18:59 09/16/17 08:08 5 MG Lorazepam 1 mg/ Syringe 1 ml @ 0.5 mls/min Q6 PRN IV 09/15/17 19:00 10/15/17 18:59 Review of Systems A complete 10-point Review of Systems was discussed with the patient, with pertinent positives and negatives listed in the History of Present Illness. All remaining Review of Systems questions can be considered negative unless otherwise specified. Physical Exam Date Time Temp Pulse Resp B/P (MAP) Pulse Ox O2 Delivery O2 Flow Rate FiO2 09/16/17 08:13 61 09/16/17 08:00 Room Air 09/16/17 00:00 97 Room Air 09/15/17 16:16 36.0 60 18 111/57 (75) 97 Room Air 09/15/17 16:00 Room Air The patient is alert and oriented to person, place and month No apparent distress Right lower extremity is neurovascularly sensory intact, +2 dorsalis pedis pulse , there is a 3 x 2 cm ulceration overlying the medial aspect of the PIP on the second digit. There is scant serosanguineous drainage no active purulence and no appreciable bone. Patient does have hallux valgus deformity. Laboratory Results Last 24 Hours Test 09/16/17 07:37 Creatinine 0.86 mg/dl Est Creatinine Clear Calc Drug Dose 68.1 ml/min Estimated GFR () 92.9 Estimated GFR (Non- 80.2 Assessment & Plan Right foot second digit pressure ulcer with underlying osteomyelitis. Patient has a very complicated medical course and subsequent worsening ulceration with underlying osteomyelitis when compared to previous images. Likely benefit from formal surgical debridement versus toe amputation by foot and ankle specialist. Would likely need correction of halux valgus deformity to offload the pressure site in the setting of debridement only. Unfortunately , Dr. Manuel, our group's foot and ankle specialist is not available to see and treat the patient at this time. Recommend consultation to podiatric surgery for further evaluation and treatment/surgical intervention. At this time continue IV antibiotics, wound care, may weight-bear through heel with postoperative shoe and ambulate when medically stable, continue elevating right lower extremity. Thank you for the consultation. RIGHT FOOT 3 VIEWS; RIGHT SECOND TOE 3 VIEWS CLINICAL HISTORY: Right foot pain. Second toe infection. FINDINGS: 3 views of the right foot with 3 additional views of the right second toe are obtained. Correlation is made with radiographs of the right second toe dated 08/08/[address] scan of the right foot dated 08/25/2017. The skeletal structures are osteopenic. No fracture is seen. No periostitis is identified. Bony erosion is suggested along the medial aspect of the base of the second middle phalanx. No additional foci of erosive change are identified. There is a mild hallux valgus, with moderate arthritic change at the first metatarsophalangeal joint. Mild osteoarthritic change is seen involving the interphalangeal joints. Soft tissue swelling is present in the second toe. No radiodense foreign body is identified. No subcutaneous gas is seen. IMPRESSION: 1. There is no radiographic evidence of acute fracture. 2. There is bony erosion seen involving the medial base of the second middle phalanx. This is new from prior examinations and is concerning for osteomyelitis. Clinical correlation will be required. 3. Osteopenia, hallux valgus, and arthritic change as above. RIGHT FOOT 3 VIEWS; RIGHT SECOND TOE 3 VIEWS CLINICAL HISTORY: Right foot pain. Second toe infection. FINDINGS: 3 views of the right foot with 3 additional views of the right second toe are obtained. Correlation is made with radiographs of the right second toe dated 08/08/[address] scan of the right foot dated 08/25/2017. The skeletal structures are osteopenic. No fracture is seen. No periostitis is identified. Bony erosion is suggested along the medial aspect of the base of the second middle phalanx. No additional foci of erosive change are identified. There is a mild hallux valgus, with moderate arthritic change at the first metatarsophalangeal joint. Mild osteoarthritic change is seen involving the interphalangeal joints. Soft tissue swelling is present in the second toe. No radiodense foreign body is identified. No subcutaneous gas is seen.
[2017-09-16 14:22] VITALS: BP 120/66; PULSE 87; TEMP 36.5; O2SAT 94
[2017-09-16] MEDS ORDERED: VANCOMYCIN TROUGH ONE (15:30)
[2017-09-16] MEDS ORDERED: CALCIUM CARBONATE 500 MG CHEWABLE PO PRN (17:15)
--- NOTE | 2017-09-16 20:16 | Progress Note ---
Subjective Date of Service: Sep 16, 2017. Subjective Pt evaluation today including: conversation w/ patient, physical exam, lab review, conversation w/ strategic solutions consultant, review of inpatient medication list Pain: no pain PO Intake: poor appetite Voiding: no voiding problems patient agitated last night, code posadas called, calmed down with Haldol IM needed Haldol IM again today, thrashing in bed, agitated with staff appreciate orthopedic consultation, recommend asking podiatry to see patient because human service specialist not available pt says appetite not good, c/o some indigestions, helped with Tums Problem List Medical Problems: (1) Acute chest pain Status: Acute (2) RLQ abdominal pain Status: Acute Review of Systems Constitutional: + weakness, + fatigue Abdomen: + problem reported (heartburn) Musculoskeletal: + joint pain (right second toe) Neurologic: + memory loss, + weakness All Other Systems: Reviewed and Negative Medications Current Inpatient Medications Medications (Trade) Dose Ordered Sig/Remedios Route Start Time Stop Time Status Last Admin Dose Admin Acetaminophen (Tylenol Tab) 650 mg Q4H PRN PO 09/14/17 21:45 10/14/17 21:44 Aspirin (Ecotrin Tab) 81 mg DAILY PO 09/15/17 09:00 10/15/17 08:59 09/16/17 08:13 81 MG Atorvastatin Calcium (Lipitor Tab) 40 mg HS PO 09/15/17 21:00 10/15/17 20:59 09/15/17 21:01 40 MG Carbidopa/Levodopa (Sinemet 25/ 250MG Tab) 1 tab QID PO 09/15/17 09:00 10/15/17 08:59 09/16/17 17:43 1 TAB Cholecalciferol (Vitamin D Tab) 1,000 inter.unit DAILY PO 09/15/17 09:00 10/15/17 08:59 09/16/17 08:14 1,000 INTER.UNIT Cyanocobalamin (Vitamin B-12 Tab) 500 mcg DAILY PO 09/15/17 09:00 10/15/17 08:59 09/16/17 08:14 500 MCG Digoxin (Lanoxin Tab) 0.125 mg DAILY PO 09/15/17 09:00 10/15/17 08:59 09/16/17 08:13 0.125 MG Duloxetine HCl (Cymbalta Cap) 60 mg DAILY PO 09/15/17 09:00 10/15/17 08:59 09/16/17 08:13 60 MG Isosorbide Mononitrate (Imdur Ext Rel Tab) 60 mg QAM PO 09/15/17 09:00 10/15/17 08:59 09/16/17 08:13 60 MG Metoprolol Succinate (Toprol Xl Tab) 150 mg DAILY PO 09/15/17 09:00 10/15/17 08:59 09/16/17 08:14 150 MG Nitroglycerin (Nitrostat Tab) 0.4 mg PRN PRN UT 09/14/17 21:45 10/14/17 21:44 Pantoprazole Sodium (Protonix Tab) 40 mg BID PO 09/15/17 09:00 10/15/17 08:59 09/16/17 08:14 40 MG Rivaroxaban (Xarelto Tab) 15 mg DAILY PO 09/15/17 09:00 10/15/17 08:59 09/16/17 08:14 15 MG Valsartan (Diovan Tab) 80 mg DAILY PO 09/15/17 09:00 10/15/17 08:59 09/16/17 08:13 80 MG Miscellaneous Information (Order Awaiting Action) 1 ea QS N/A 09/15/17 00:00 10/15/17 00:00 Haloperidol Lactate (Haldol Inj) 5 mg Q6 PRN IM 09/15/17 19:00 10/15/17 18:59 09/16/17 08:08 5 MG Lorazepam 1 mg/ Syringe 1 ml @ 0.5 mls/min Q6 PRN IV 09/15/17 19:00 10/15/17 18:59 Ciprofloxacin (Cipro Tab) 500 mg BID PO 09/16/17 21:00 10/28/17 20:59 Calcium Carbonate (Tums Chew Tab) 1,000 mg Q6H PRN PO 09/16/17 17:15 10/16/17 17:14 Objective Vital Signs Date Time Temp Pulse Resp B/P (MAP) Pulse Ox O2 Delivery O2 Flow Rate FiO2 09/16/17 16:00 Room Air 09/16/17 14:22 36.5 87 16 120/66 (84) 94 Room Air 09/16/17 08:13 61 09/16/17 08:00 Room Air 09/16/17 00:00 97 Room Air Physical Exam General Appearance: WD/WN, no apparent distress Eyes: normal inspection, EOMI, sclerae normal ENT: normal ENT inspection, hearing grossly normal, pharynx normal Neck: supple, no adenopathy, no JVD, trachea midline Respiratory/Chest: chest non-tender, lungs clear, normal breath sounds, no respiratory distress, no accessory muscle use Cardiovascular: regular rate, rhythm, no edema, no gallop, no JVD, no murmur Abdomen: normal bowel sounds, non tender, soft, no organomegaly Extremities: normal range of motion, non-tender, normal inspection, no pedal edema, no calf tenderness, pelvis stable Neurologic/Psychiatric: public defender II-XII nml as tested, no motor/sensory deficits, alert, normal mood/affect, + disoriented Skin: + pertinent finding (right second toe, medial surface DIP joint, tender, open, erythematous) Laboratory Results Last 24 Hours Test 09/16/17 07:37 Creatinine 0.86 mg/dl Est Creatinine Clear Calc Drug Dose 68.1 ml/min Estimated GFR () 92.9 Estimated GFR (Non- 80.2 Assessment and Plan Right second toe osteomyelitis/right foot cellulitis-- ID recommends Cipro 500mg BID for 4 weeks ortho recommends podiatry evaluation for debridement or amputation consult Dr. Watters Atrial fibrillation/hypertension/CHF-- Continue aspirin 81 mg daily, digoxin 0.125 mg p.o. daily, Imdur extended release 60 mg every morning, metoprolol succinate 150 mg p.o. daily, valsartan 80 mg p.o. daily and Xarelto 15 mg p.o. daily. Parkinson's-- with dementia and behavior disturbances Haldol PRN, helps calm him down Continue carbidopa/levodopa 25/250 1 tablet p.o. 4 times daily and Azilect 0.5 mg p.o. daily. Hyperlipidemia-- Continue atorvastatin 40 mg at bedtime. Vitamin B12 deficiency-- Continue cyanocobalamin 500 mcg p.o. daily. Anxiety with depression-- Continue duloxetine 60 mg p.o. daily. GERD-- Continue pantoprazole 40 mg p.o. twice daily Tums PRN Disposition: patient confused, cannot take care of himself at home CM working on [employer] next week will see if podiatry feels he need debridement
[2017-09-16] MEDS: ATORVASTATIN 40 MG TAB PO SCH (20:47)
[2017-09-16] MEDS: CIPROFLOXACIN 500 MG TAB PO SCH (20:47)
[2017-09-16 22:55] VITALS: BP 135/73; PULSE 82; TEMP 36.4; O2SAT 95
[2017-09-17 00:19] VITALS: BP 138/78; PULSE 82; TEMP 36.4; O2SAT 98
[2017-09-17 07:23] LABS: CREATININE 0.93 mg/dl (0.60-1.40)
[2017-09-17 07:59] VITALS: BP 162/80; PULSE 68; TEMP 36.4; O2SAT 98
[2017-09-17] MEDS: CIPROFLOXACIN 500 MG TAB PO SCH ×2 (08:02→20:48)
[2017-09-17] MEDS: DULOXETINE HCL 60 MG CAP PO SCH (08:02)
[2017-09-17] MEDS: RIVAROXABAN TAB 15 MG TAB PO SCH (08:03)
[2017-09-17] MEDS: ASPIRIN 81 MG ECTAB PO SCH (08:03)
[2017-09-17] MEDS: CHOLECALCIFEROL 1000 INTER.UNIT TAB PO SCH (08:03)
[2017-09-17] MEDS: DIGOXIN 0.125 MG TAB PO SCH (08:03)
[2017-09-17] MEDS: PANTOprazole SOD 40 MG TAB PO SCH ×2 (08:03→20:48)
[2017-09-17] MEDS: METOPROLOL SUCC 50MG EXT REL TAB PO SCH (08:03)
[2017-09-17] MEDS: CYANOCOBALAMIN 500 MCG TAB (VIT B-12) PO SCH (08:03)
[2017-09-17] MEDS: ISOSORBIDE MONONITRATE 60 MG TABCR PO SCH (08:03)
[2017-09-17] MEDS: VALSARTAN 80 MG TAB PO SCH (08:03)
[2017-09-17] MEDS: CARBIDOPA/LEVODOPA 25-250 1 EA TAB PO SCH ×4 (08:03→20:48)
[2017-09-17 09:32] VITALS: BP 138/78; PULSE 82; O2SAT 98
--- NOTE | 2017-09-17 14:24 | Progress Note ---
Subjective Date of Service: Sep 17, 2017. Subjective Pt evaluation today including: conversation w/ patient, physical exam, review of inpatient medication list Pain: mild pain PO Intake: adequate Voiding: no voiding problems patient laying in bed, no new complaints, awaiting podiatry consult Problem List Medical Problems: (1) Acute chest pain Status: Acute (2) RLQ abdominal pain Status: Acute Review of Systems Constitutional: + weakness, + fatigue Musculoskeletal: + joint pain (right 2nd toe) Skin: + rash (right second toe) Objective Vital Signs Date Time Temp Pulse Resp B/P (MAP) Pulse Ox O2 Delivery O2 Flow Rate FiO2 09/17/17 09:32 82 98 09/17/17 08:03 68 09/17/17 08:00 Room Air 09/17/17 07:59 36.4 68 16 162/80 (107) 98 Room Air 09/17/17 00:19 36.4 82 15 138/78 (98) 98 Room Air 09/17/17 00:00 Room Air 09/16/17 22:55 36.4 82 18 135/73 (93) 95 Room Air 09/16/17 16:00 Room Air 09/16/17 14:22 36.5 87 16 120/66 (84) 94 Room Air Physical Exam General Appearance: WD/WN, no apparent distress Eyes: normal inspection, EOMI, sclerae normal ENT: normal ENT inspection, hearing grossly normal, pharynx normal Neck: supple, no adenopathy, no JVD, trachea midline Respiratory/Chest: chest non-tender, lungs clear, normal breath sounds, no respiratory distress, no accessory muscle use Cardiovascular: regular rate, rhythm, no edema, no gallop, no JVD, no murmur Abdomen: normal bowel sounds, non tender, soft, no organomegaly Extremities: normal range of motion, non-tender, no pedal edema, no calf tenderness, pelvis stable, + pertinent finding (right 2nd toe swelling, erythema , tender) Neurologic/Psychiatric: 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 Watters, likely consult tomorrow patient does not want surgical intervention even if recommended, says he would rather try 4 weeks of antibiotics Atrial fibrillation/hypertension/CHF-- Continue aspirin 81 mg daily, digoxin 0.125 mg p.o. daily, Imdur extended release 60 mg every morning, metoprolol succinate 150 mg p.o. daily, valsartan 80 mg p.o. daily and Xarelto 15 mg p.o. daily. Parkinson's-- with dementia and behavior disturbances Haldol PRN, helps calm him down Continue carbidopa/levodopa 25/250 1 tablet p.o. 4 times daily and Azilect 0.5 mg p.o. daily. Hyperlipidemia-- Continue atorvastatin 40 mg at bedtime. Vitamin B12 deficiency-- Continue cyanocobalamin 500 mcg p.o. daily. Anxiety with depression-- Continue duloxetine 60 mg p.o. daily. GERD-- Continue pantoprazole 40 mg p.o. twice daily Tums PRN Disposition: patient confused, cannot take care of himself at home CM working on [facility] next week will see if podiatry feels he need debridement
[2017-09-17] MEDS: ATORVASTATIN 40 MG TAB PO SCH (20:48)
[2017-09-17 22:55] VITALS: BP 114/62; PULSE 60; TEMP 36.4; O2SAT 96
[2017-09-18 07:02] VITALS: BP 133/68; PULSE 75; TEMP 36.5; O2SAT 100
[2017-09-18 07:42] LABS: CREATININE 1.13 mg/dl (0.60-1.40)
[2017-09-18] MEDS: CHOLECALCIFEROL 1000 INTER.UNIT TAB PO SCH (07:50)
[2017-09-18] MEDS: DIGOXIN 0.125 MG TAB PO SCH (07:53)
[2017-09-18] MEDS: DULOXETINE HCL 60 MG CAP PO SCH (07:53)
[2017-09-18] MEDS: ISOSORBIDE MONONITRATE 60 MG TABCR PO SCH (07:53)
[2017-09-18] MEDS: PANTOprazole SOD 40 MG TAB PO SCH ×2 (07:54→20:18)
[2017-09-18] MEDS: METOPROLOL SUCC 50MG EXT REL TAB PO SCH (07:54)
[2017-09-18] MEDS: CARBIDOPA/LEVODOPA 25-250 1 EA TAB PO SCH ×4 (07:54→20:17)
[2017-09-18] MEDS: CIPROFLOXACIN 500 MG TAB PO SCH ×2 (07:55→20:17)
[2017-09-18] MEDS: RIVAROXABAN TAB 15 MG TAB PO SCH (07:55)
[2017-09-18] MEDS: CYANOCOBALAMIN 500 MCG TAB (VIT B-12) PO SCH (07:55)
[2017-09-18] MEDS: ASPIRIN 81 MG ECTAB PO SCH (07:55)
[2017-09-18] MEDS: VALSARTAN 80 MG TAB PO SCH (07:55)
[2017-09-18 08:00] VITALS: O2SAT 100
[2017-09-18] MEDS: HALOPERIDOL LACTATE 5 MG/ML 1 ML VIAL IM PRN (14:15)
[2017-09-18 15:40] VITALS: BP 122/68; PULSE 80; TEMP 36.6; O2SAT 95
--- NOTE | 2017-09-18 15:52 | CONSULTATION REPORT ---
DATE OF CONSULTATION: 09/14/2017 HISTORY OF PRESENT ILLNESS: An 82-year-old male seen at bedside due to ulceration of the right second digit. Chart reviewed. Noted that the patient was admitted on 09/14/2017 for increased signs of infection and purulent drainage from the right second digit. Chart indicates patient has been followed by the wound clinic and referred to the Emergency Department due to increased signs of infection. The patient was initially started on vancomycin and Rocephin and then switched to Cipro. The patient is confused per the chart, although on exam, the patient was quite clear and coherent, did not offer a great history, however, did note he has had problems with his right second digit on and off for years. The patient was seen in our office in 2004 for a hammertoe and bunion deformity as well as the nail and has not been seen in our office since 02/2004. PAST MEDICAL AND SURGICAL HISTORY: CHF, acute respiratory disorder per chart, psychiatric disorder, hypertension, and hyperlipidemia. MEDICATIONS: Per chart. Currently on Xarelto and Cipro in addition to other list of medications. ALLERGIES: No known drug allergies. SOCIAL HISTORY: The patient lives with family. History of tobacco use. PHYSICAL EXAMINATION: VITAL SIGNS: Afebrile 36.5, pulse 75, respirations 20, BP 133/68, pulse ox 100% on room air. LOWER EXTREMITIES: DP and PT 2/4 and bounding. Absence of digital hair is noted. Mild to moderate swelling noted over the right second digit. DERM: There is an ulceration measuring approximately 2 x 3 cm over the medial aspect of the PIP joint of the right second digit tracking towards bone with muscle exposed, serosanguineous drainage is present. No erythema on the outside of the ulceration site. Mild temperature elevation of the right second digit with a yellow crusty-type hyperkeratotic rim secondary to drainage over the area. NEUROLOGIC: Epicritic sensation, motor, and sensory grossly intact. MUSCULOSKELETAL: Increased hallux adductus angle with hallux abutting the right second toe and large dorsomedial eminence, first MTPJ, PIPJ contracture noted 2 through 5 with retrograde buckling across metatarsal joint, right second digit. LABORATORY DATA: Blood culture shows no growth to date. WBC on admission was within normal limits. X-ray shows bony erosion of the middle phalanx consistent with osteomyelitis which is a new finding on the films taken on admission. Venous Doppler negative for DVT. IMPRESSION: 1. Zimmer grade 3 ulceration, medial right second digit, probing towards bone with osteomyelitis present per x-ray findings. 2. Cellulitis, mild right second digit. 3. 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 4. 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 PLAN: I discussed the case with Dr. Marshall and with the patient's son, Nicolas Gamino, can be reached at [phone]. Also had a lengthy discussion with the patient at bedside due to long postoperative recovery with HAV and hammertoe deformity with current bone infection. I recommended amputation versus reconstructive surgery. This was discussed at length. The patient also had similar conversations with other doctors that have been present and is amenable to removal of the distal aspect of the right second digit. Would recommend continue IV antibiotics over the oral Cipro. This was discussed with Dr. Marshall. Recommended vancomycin and Rocephin until more deeper cultures can be obtained in the OR. 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 The Xarelto was stopped and on hold. Will need a PICC line. Recommend IV antibiotics with stop date being 10/30/2018. The patient is oracle hrms consultant to the OR. Reviewed procedures and complications both with the patient at bedside and via on the phone with Nicolas who is POA. Consent being obtained via email from the patient's son. CARMELLA
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
[2017-09-18] MEDS: ATORVASTATIN 40 MG TAB PO SCH (20:17)
[2017-09-18 23:24] VITALS: BP 145/67; PULSE 62; TEMP 36.4; O2SAT 96
[2017-09-19] VITALS (9 sets, daily range): BP systolic 116–182; BP diastolic 69–81; PULSE 64–82; TEMP 36.3–36.9; O2SAT 93–100
[2017-09-19] MEDS: HALOPERIDOL LACTATE 5 MG/ML 1 ML VIAL IM PRN (04:03)
[2017-09-19 06:40] LABS: EOS % 3.3 %; EOS ABS # 0.21 K/uL (0-0.5); HEMOGLOBIN 14.2 g/dL (14.0-18.0); IG# 0.02 K/uL (0.00-0.02); LYMPH % 16.3 %; LYMPH ABS # 1.03 K/uL (1.2-3.4); MEAN CELL VOLUME 92.7 fL (80-100); MEAN CORPUSCULAR HEMOGLOBIN 31.3 pg (25-34); MEAN CORPUSCULAR HGB CONC 33.8 g/dl (32-36); MEAN PLATELET VOLUME 10.9 fL (7.4-10.4); MONO % 8.8 %; MONO ABS # 0.56 K/uL (0.11-0.59); NEUT % 71.3 %; NEUT ABS # 4.51 K/uL (1.4-6.5); PLATELET COUNT 161 K/uL (130-400); RED CELL DISTRIBUTION WIDTH CV 12.9 % (11.5-14.5); RED CELL DISTRIBUTION WIDTH SD 43.3 fL (36.4-46.3); WHITE BLOOD COUNT 6.33 K/uL (4.8-10.8)
[2017-09-19 07:10] LABS: CALCIUM 8.9 mg/dl (8.5-10.1); CREATININE 0.85 mg/dl (0.60-1.40)
[2017-09-19] MEDS: CIPROFLOXACIN 500 MG TAB PO SCH ×2 (08:17→21:17)
[2017-09-19] MEDS: VALSARTAN 80 MG TAB PO SCH (08:18)
[2017-09-19] MEDS: CARBIDOPA/LEVODOPA 25-250 1 EA TAB PO SCH ×4 (08:18→21:16)
[2017-09-19] MEDS: ASPIRIN 81 MG ECTAB PO SCH (08:18)
[2017-09-19] MEDS: PANTOprazole SOD 40 MG TAB PO SCH ×2 (08:18→21:16)
[2017-09-19] MEDS: ISOSORBIDE MONONITRATE 60 MG TABCR PO SCH (08:18)
[2017-09-19] MEDS: DULOXETINE HCL 60 MG CAP PO SCH (08:18)
[2017-09-19] MEDS: DIGOXIN 0.125 MG TAB PO SCH (08:18)
[2017-09-19] MEDS: METOPROLOL SUCC 50MG EXT REL TAB PO SCH (08:18)
[2017-09-19] MEDS: CHOLECALCIFEROL 1000 INTER.UNIT TAB PO SCH (08:19)
[2017-09-19] MEDS: CYANOCOBALAMIN 500 MCG TAB (VIT B-12) PO SCH (08:19)
[2017-09-19] MEDS ORDERED: LIDOCAINE HCL 2% 2 ML VIAL (20MG/ML) ONE ×2 (09:48→14:36)
[2017-09-19] MEDS ORDERED: PROPOFOL IV EMULSION 10 MG/ML 20 ML VIAL ONE ×2 (09:48→14:36)
[2017-09-19] MEDS ORDERED: BACITRACIN 50000 UNIT VIAL ONE ×2 (10:44→14:28)
[2017-09-19] MEDS ORDERED: BUPIVACAINE 0.5 % 5 MG/1 ML PF 10ML VIAL ONE ×2 (10:44→14:28)
[2017-09-19] MEDS ORDERED: CEFAZOLIN SOD 1000MG/7.5 ML IV PUSH ONE ×2 (11:14→14:01)
--- NOTE | 2017-09-19 11:25 | History & Physical Bridge Note ---
H&P Re-Evaluation Bridge Note: I have examined the patient, reviewed the History & Physical and in the interval since the performance of my exam yesterday. Discussed procedure, risk and complications at length with both the patient and the patient's Son yesterday. Highly recommend IV antibiotics, but understand concern for pulling line due to mental state of patient. Will continue Cipro & add Keflex for better staff coverage, minimum 6 weeks
[2017-09-19] MEDS ORDERED: NURSING VERBAL MED ORDER ONE (11:30)
[2017-09-19] MEDS: CEPHALEXIN MONOHYDRATE 500 MG CAP PO SCH ×3 (12:57→21:16)
[2017-09-19] MEDS ORDERED: ONDANSETRON INJ 2 MG/ML 2 ML VIAL ONE (14:36)
[2017-09-19] MEDS ORDERED: FENTANYL CITRATE INJ 50 MCG/1 ML 2 ML VIAL ONE (14:36)
[2017-09-19] MEDS ORDERED: DEXAMETHASONE SOD INJ 4 MG/ML VIAL ONE (14:36)
--- NOTE | 2017-09-19 16:07 | [facility] Post Operative Brief Note ---
Immediate Operative Summary Operative Date Sep 19, 2017. Pre-Operative Diagnosis Osteomyelitis, Right 2nd Toe Post-Operative Diagnosis Same as preoperative. Procedure(s) Performed I&D Right foot, Right 2nd Toe Amputation Surgeon Dr. Watters Business Management Specialist Surgeon(s) none Estimated Blood Loss 10ml Findings Consistent with Post-Op Diagnosis Specimens PERMANENT: A.) Right Foot, 2nd Toe MICROBIOLOGY: A.) Right Foot, 2nd Toe Anesthesia Type MAC Complication(s) none Overlapping Procedure I was immediately available: during the entire case
--- NOTE | 2017-09-19 16:39 | Anesthesiology Progress Note ---
Anesthesia Post Op Note Date & Time Sep 19, 2017 at 16:39 Vital Signs Pain Intensity: 0 Vital Signs Past 12 Hours Date Time Temp Pulse Resp B/P (MAP) Pulse Ox O2 Delivery O2 Flow Rate FiO2 09/19/17 16:30 70 17 159/64 95 Nasal Cannula 2 09/19/17 16:20 69 14 166/79 99 Oxymask 10 09/19/17 16:14 36.4 80 13 167/84 100 Oxymask 10 09/19/17 08:00 100 Room Air 09/19/17 07:28 36.3 73 18 171/81 (111) 96 Room Air Notes Mental Status: alert / awake / arousable, participated in evaluation Pt Amnestic to Procedure: Yes Nausea / Vomiting: adequately controlled Pain: adequately controlled Airway Patency, RR, SpO2: stable & adequate BP & HR: stable & adequate Hydration State: stable & adequate Anesthetic Complications: no major complications apparent
--- NOTE | 2017-09-19 16:56 | DIAGNOSTIC IMAGING REPORT ---
R TOE(S) MIN 2 VIEWS CLINICAL HISTORY: RT 2ND TOE AMPUTATION COMPARISON STUDY: Right foot 09/14/2017. FINDINGS: Total fluoroscopy time was 3 seconds. 2 fluoroscopic spot images of the right forefoot. The initial image demonstrates a surgical instrument located at the second toe. The final image demonstrates amputation of the second toe. IMPRESSION: Fluoroscopy provided for right second toe amputation. Electronically signed by: Abdi Abebe M.D. 09/19/2017 4:55 PM Dictated Date/Time: 09/19/2017 4:54 PM
--- NOTE | 2017-09-19 16:59 | DIAGNOSTIC IMAGING REPORT ---
R FOOT MIN 3 VIEWS ROUTINE CLINICAL HISTORY: s/p amputation postoperative COMPARISON: 09/14/2017 DISCUSSION: Interval resection of the phalanges of the second toe. Unremarkable postoperative soft tissue change. All remaining osseous structures are similar. No change other than operative changes as noted. There is no evidence for soft tissue swelling. IMPRESSION: Unremarkable postoperative change secondary to resection of the phalanges of the second toe.. Study is otherwise unchanged in the prior exam. The above report was generated using voice recognition software. It may contain grammatical, syntax or spelling errors. Electronically signed by: Eric Lee M.D. 09/19/2017 4:57 PM Dictated Date/Time: 09/19/2017 4:56 PM
--- NOTE | 2017-09-19 18:16 | OPERATIVE REPORT ---
DATE OF OPERATION: 09/19/2017 SURGEON: Adela Watters DPM PREOPERATIVE DIAGNOSES: 1. Osteomyelitis, right second digit. 2. Cellulitis, right foot. 3. History of chronic ulceration, right second digit. POSTOPERATIVE DIAGNOSES: 1. Osteomyelitis, right second digit. 2. Cellulitis, right foot. 3. History of chronic ulceration, right second digit. PROCEDURES: 1. I and D, right foot with excision of bone cortex. 2. Amputation, right second toe and metatarsophalangeal joint level. ANESTHESIA: IV with local sedation, preoperative block given 0.5% Marcaine plain, total of 30 mL. HISTOPATHOLOGY: Bone sent and deep anaerobic and aerobic cultures and Gram stain, right foot. HEMOSTASIS: None. MATERIALS: 2-0 Vicryl, 4.0 nylon. ESTIMATED BLOOD LOSS: 10 mL. COMPLICATIONS: None. CONDITION: The patient tolerated the procedure and anesthesia well without complications, transferred to recovery room with vital signs stable and neurovascular status intact. PROCEDURE IN DETAIL: Patient's history was obtained mainly through chart and brief conversation with the patient. The patient seems clear headed at times and then other times not a great historian. The patient has been a patient at the wound care center for some time for an ulceration of the right second toe, was sent in the ED due to bone infection over the area. Radiographs showed changes over the medial cortex. It should be noted that prior to the start of the procedure, after scrubbing, prepping, and draping and it appears when blowing up the films that it is more of the head of the proximal phalanx and the ulceration communicates right down to the head of the proximal phalanx. The patient was brought to the OR and placed on the OR table in supine position. Upon completion of IV sedation by the anesthesia department, a local field block was performed with 30 mL 0.5% Marcaine plain. Foot was scrubbed, prepped and draped in the usual aseptic fashion. Attention was directed to the right foot where freer was used with C-arm to identify where the tracking of the ulceration was directly on the head of the proximal phalanx. There were also changes noted over the film in this area in addition to the base of the middle phalanx. Due to communication with the head of the proximal phalanx, the patient unable to tolerate IV antibiotics long-term, it was decided to take the digit at the metatarsophalangeal joint level rather than leaving part of the bone involved as the patient was felt to have been unable to tolerate the PICC line for 6 weeks. Recommended complete resection proximal to the joint. There should also be noted that there was poor bleeding at the amp site also necessitating the need for the more proximal amputation than previously discussed. The toe was disarticulated at metatarsophalangeal joint. Deep cultures were obtained, aerobic, anaerobic, and Gram stain over the area. Wound was irrigated with pulse lavage 3000 units with bacitracin. Closure began of deep structures using 2-0 Vicryl. Superficial skin margins were closed in a simple interrupted fashion using 4-0 nylon. Dry sterile compressive dressing consisting of Xeroform, 4 x 4's, ABD, Kerlix, and an Alfa was applied. Long-term progress is guarded without IV antibiotics. Chart well documented. The patient is unable to tolerate PICC line and as recommendation of ID to continue Cipro. Highly recommended continuing Keflex in addition to the Cipro due to the Staph aureus that was present on previous and better Staph coverage. Would continue Cipro and Keflex for a minimum of 6 weeks, stop date on 10/31/2017. Is okay to discharge from a podiatry standpoint on 6 weeks of oral antibiotics and we will continue to monitor closely in the office. I attest to the content of the Intraoperative Record and any orders documented therein. Any exception s are noted below.
[2017-09-19] MEDS: ATORVASTATIN 40 MG TAB PO SCH (21:16)
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
[2017-09-20] MEDS: HALOPERIDOL LACTATE 5 MG/ML 1 ML VIAL IM PRN (02:52)
[2017-09-20 07:08] VITALS: BP 125/71; PULSE 81; TEMP 36.2; O2SAT 98
[2017-09-20 08:00] VITALS: O2SAT 98
[2017-09-20] MEDS: METOPROLOL SUCC 50MG EXT REL TAB PO SCH (09:00)
[2017-09-20] MEDS: DULOXETINE HCL 60 MG CAP PO SCH (09:00)
[2017-09-20] MEDS: ASPIRIN 81 MG ECTAB PO SCH (09:00)
[2017-09-20] MEDS: ISOSORBIDE MONONITRATE 60 MG TABCR PO SCH (09:00)
[2017-09-20] MEDS: CARBIDOPA/LEVODOPA 25-250 1 EA TAB PO SCH ×2 (09:00→13:00)
[2017-09-20] MEDS: PANTOprazole SOD 40 MG TAB PO SCH (09:00)
[2017-09-20] MEDS: VALSARTAN 80 MG TAB PO SCH (09:00)
[2017-09-20] MEDS: CIPROFLOXACIN 500 MG TAB PO SCH (09:00)
[2017-09-20] MEDS: CYANOCOBALAMIN 500 MCG TAB (VIT B-12) PO SCH (09:00)
[2017-09-20] MEDS: CEPHALEXIN MONOHYDRATE 500 MG CAP PO SCH ×2 (09:00→13:00)
[2017-09-20] MEDS: DIGOXIN 0.125 MG TAB PO SCH (09:00)
[2017-09-20] MEDS: CHOLECALCIFEROL 1000 INTER.UNIT TAB PO SCH (09:00)
--- NOTE | 2017-09-20 09:11 | Anesthesiology Progress Note ---
Anesthesia Post Op Note Date & Time Sep 20, 2017 at 09:11 Vital Signs Pain Intensity: 0.0 Vital Signs Past 12 Hours Date Time Temp Pulse Resp B/P (MAP) Pulse Ox O2 Delivery O2 Flow Rate FiO2 09/20/17 07:08 36.2 81 18 125/71 (89) 98 Room Air 09/20/17 00:00 Room Air 09/19/17 23:11 36.6 82 18 116/69 (85) 96 Room Air Notes Mental Status: alert / awake / arousable, participated in evaluation Pt Amnestic to Procedure: Yes Nausea / Vomiting: adequately controlled Pain: adequately controlled Airway Patency, RR, SpO2: stable & adequate BP & HR: stable & adequate Hydration State: stable & adequate Anesthetic Complications: no major complications apparent
--- NOTE | 2017-09-20 09:15 | PROGRESS NOTE ---
DATE: 09/20/2017 The patient seen at bedside, sleeping. PHYSICAL EXAMINATION: VITAL SIGNS: Oral and axillary temperature was 36.2, pulse 81, respiratory rate 18, blood pressure 125/71, pulse ox 98. EXTREMITIES: Lower extremity exam: Moderate edema noted to the right foot +2/6; hematoma still present in dorsal aspect of the foot with swelling around this area. Derm sutures intact. Good cap refill noted to the flaps. NEUROLOGIC: Epicritic sensation grossly intact. MUSCULOSKELETAL: Amputation, right second digit metatarsophalangeal joint level. Micro OR cultures, Gram stain showed no organisms. Aerobic and anaerobic cultures pending. IMPRESSION: 1. Status post incision and drainage, amputation right second digit metatarsophalangeal joint level. 2. Cellulitis to right foot. 3. Hematoma, right foot. TREATMENT: Recommend continuing Cipro and Keflex for 6 weeks, stop date was 10/31/2017 for IV antibiotics at medical's advice due to possible complications with the PICC line due to mental confusion with the patient. Dry sterile dressing changed at bedside. Will follow with the patient in 7-14 days. Okay to discharge from a podiatry standpoint.
[2017-09-20] MEDS ORDERED: CPR500 PO (14:24)
--- NOTE | 2017-09-20 14:32 | Discharge Instructions ---
Discharge Instructions Date of Service Sep 20, 2017. Admission Reason for Admission: Osteomyelitis Of Toe Of Right Foot Discharge Discharge Diagnosis / Problem: Osteomyelitis of toe of right foot Discharge Goals Goal(s): Decrease discomfort, Improve function Activity Recommendations Activity Limitations: resume your previous activity . Instructions / Follow-Up Instructions / Follow-Up Continue antibiotics for 6 weeks. Stop date is 10/31/17 As per ID will discharge patient on PO Cipro. Will recommend followup with Dr. Felder at the wound care clinic at discharge in [address] Watters in 10-14 days. Current Hospital Diet Patient's current hospital diet: Regular Diet Discharge Diet Recommended Diet: Regular Diet Procedures Procedures Performed: I&D Right foot, Right 2nd Toe Amputation Pending Studies Studies pending at discharge: no Medical Emergencies . Who to Call and When: Medical Emergencies: If at any time you feel your situation is an emergency, please call 911 immediately. . Non-Emergent Contact Non-Emergency issues call your: Primary Care Provider Call Non-Emergent contact if: you have any medication questions . . "Provider Documentation" section prepared by Ari Robbins. .
[2017-09-20 15:44] VITALS: BP 125/71; PULSE 81; TEMP 36.2; O2SAT 98
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
--- NOTE | 2017-09-26 09:29 | EDITING REQUIRED CODING QUERY ---
CONGESTIVE HEART FAILURE To Promote full compliance with coding requirements relating to patient care, physician participation is requested in all cases of ict sales representative uncertainty. Please assist us with the following questions. A diagnosis of Congestive Heart Failure is documented in the patient's medical record. To accurately code this diagnosis and to compare patient severity, we ask that you specify the type of heart failure by placing an X within the parenthesis (x). SYSTOLIC HEART FAILURE ( ) Acute ( ) Chronic ( ) Acute on Chronic ( ) Rheumatic ( ) Unknown DIASTOLIC HEART FAILURE ( ) Acute ( ) Chronic ( ) Acute on Chronic ( ) Rheumatic ( ) Unknown COMBINED SYSTOLIC AND DIASTOLIC HEART FAILURE ( ) Acute (x ) Chronic ( ) Acute on Chronic ( ) Rheumatic ( ) Unknown UNKNOWN TYPE OF HEART FAILURE ( ) Was the CHF Present On Admission? Please check the appropriate box: ( ) Present on Admission ( ) Not Present On Admission ( ) Clinically undetermined Thank you Shannan Estevez
== END 2017-09-20 16:20 | DRG 503 ==
LOC: C.EDB 16:34 → C.MS2W 22:19 → ENRESERV 22:38
PROVIDERS: ADMIT Hospitalist; ATTEND Internal Medicine Sports Medicine
PROC: 0Y6R0Z0 Detachment at Right 2nd Toe, Complete, Open Approach (ICD-10-PCS; principal; 2017-09-19 11:00)
DX: M86.9 Osteomyelitis, unspecified (principal); I50.43 Acute on chronic combined systolic (congestive) and diastolic (congestive) heart failure; L03.115 Cellulitis of right lower limb; F02.81 Dementia in other diseases classified elsewhere, unspecified severity, with behavioral disturbance; Z87.891 Personal history of nicotine dependence; Z79.82 Long term (current) use of aspirin; I48.91 Unspecified atrial fibrillation; I11.0 Hypertensive heart disease with heart failure; I50.9 Heart failure, unspecified; G20 Parkinson's disease; E78.5 Hyperlipidemia, unspecified; E53.8 Deficiency of other specified B group vitamins; F41.9 Anxiety disorder, unspecified; F32.9 Major depressive disorder, single episode, unspecified; K21.9 Gastro-esophageal reflux disease without esophagitis; I25.5 Ischemic cardiomyopathy